=== PATIENT | female | born 1955 | race Caucasian/White ===

== ENCOUNTER → 2020-08-22 11:18 | Outpatient (BNVA) | payer MEDICAID, SELFPAY | PROVIDERS: PCP Internal Medicine; Visit Provider Nurse Practitioner Gerontology | DX: E03.9 Hypothyroidism, unspecified (principal); E66.3 Overweight | CPT/HCPCS: 99212 ==

== ENCOUNTER 2020-09-04 13:10 | Outpatient (REF) | payer MEDICAID, SELFPAY ==
[2020-09-04 15:00] LABS: Alanine Aminotransferase 18 U/L (0-31); Alkaline Phosphatase 124 U/L (39-117); Anion Gap 9 (12-20); Aspartate Amino Transferase 21 U/L (5-31); Bilirubin Total 0.4 mg/dL (0.0-1.0); Blood Urea Nitrogen 13 mg/dL (9-16); Calcium 9.6 mg/dL (8.4-10.2); Carbon Dioxide 27 mmol/L (22-29); Chloride 109 mmol/L (96-108); Estimated Glomerular Filt Rate > 60; Glucose Random 86 mg/dL (60-115); Potassium 4.8 mmol/L (3.3-5.1); Sodium 140 mmol/L (135-145); Total Protein 6.7 g/dL (6.5-8.0)
[2020-09-07 13:56] LABS: Vitamin D 25-OH, D2 <4 ng/mL; Vitamin D 25-OH, D3 46 ng/mL; Vitamin D 25-OH, Total 46 ng/mL (30-100)
== END 2020-09-04 13:11 | disposition home or self-care (01) ==
LOC: HO.LAB 13:10
PROVIDERS: PCP Family Medicine; Referring Provider Family Medicine; Visit Provider Student in an Organized Health Care Education/Training Program
DX: M81.0 Age-related osteoporosis without current pathological fracture (principal); M47.816 Spondylosis without myelopathy or radiculopathy, lumbar region
CPT/HCPCS: 36415; 80053; 82306; 99212

== ENCOUNTER 2020-09-11 08:44 | Outpatient (REF) | payer MEDICAID, SELFPAY ==
--- NOTE | ~2020-09-11 | MM_ITS ---
EXAMINATION: BONE DENSITOMETRY CLINICAL INDICATION: Osteoporosis. COMPARISON: Previous BD dated 08/02/2018 and baseline BD dated 04/11/2007. TECHNIQUE: Using a [employer] DXA System (software version: 13.1) manufactured by [employer], dual-energy x-ray absorptiometry was performed of the lumbar spine and left hip. The images are of good technical quality. Summary results are attached. FINDINGS: AP SPINE L1-L4: Current: BMD 0.981 g/cm2, Z-score -0.2, T-score -1.7, osteopenia, 3.7% increase from previous, 2.9% increase from baseline (<5% change is not significant). Prior: BMD 0.946 g/cm2. Baseline: BMD 0.953 g/cm2. LEFT FEMUR, NECK: Current: BMD 0.823 g/cm2, Z-score -0.2, T-score -1.5, osteopenia. Prior: BMD 0.827 g/cm2. Baseline: BMD 0.820 g/cm2. LEFT FEMUR, TOTAL: Current: BMD 0.805 g/cm2, Z-score -0.5, T-score -1.6, osteopenia, 1.1% increase from previous, 4.3% decrease from baseline (<5% change is not significant). Prior: BMD 0.796 g/cm2. Baseline: BMD 0.841 g/cm2. IDENTIFIED RISK FACTORS: Early menopause, family history (parent hip fracture), hyperthyroid, menopause, osteoporosis, rheumatoid arthritis, anticonvulsant, secondary osteoporosis. HISTORY OF FRACTURE: None listed. MEDICATIONS: Calcium, vitamin D, Prolia. MM/XR DEXA axial skeleton IMPRESSION: 1. DIAGNOSIS: Osteopenia based on the lowest T-score value of -1.7 in the lumbar spine applying World Health Organization criteria. 2. 10-YEAR FRACTURE RISK PREDICTION, FRAX: Major osteoporotic fracture (clinical spine, forearm, hip or shoulder) 12.4%. Hip fracture 0.7%. 3. Treatment Recommendations: NOF guidelines recommend consideration for treatment in postmenopausal women and men age 50 and older presenting with the following: -A hip or vertebral (clinical or morphometric) fracture. -T-score less than or equal to -2.5 at the femoral neck or spine after appropriate evaluation to exclude secondary causes. -Low bone mass at the hip or spine and a 10-year fracture probability by FRAX of greater than or equal to 3% for hip fracture or greater than or equal to 20% for major osteoporotic fracture based on the [place] adapted WHO algorithm. 4. Other Recommendations: All treatment decisions require clinical judgment and consideration of individual patient factors, including patient preferences, comorbidities, previous drug use, risk factors not captured in the FRAX model (e.g. frailty, falls, vitamin D deficiency, increased bone turnover, interval significant decline in bone density) and possible under or overestimation of fracture risk by FRAX. Additional medical evaluation for secondary cause of low bone mineral density may be appropriate. FUTURE SCAN RECOMMENDATION: People with diagnosed cases of osteoporosis or at high risk for fracture should have regular bone mineral density tests. For patients eligible for Medicare, routine testing is allowed once every 2 years. The testing frequency can be increased to one year for patients who have rapidly progressing disease, those who are receiving or discontinuing medical therapy to restore bone mass, or have additional risk factors.
== END 2020-09-11 08:45 | disposition home or self-care (01) ==
LOC: HO.MAMMO 08:44
PROVIDERS: Visit Provider Student in an Organized Health Care Education/Training Program
DX: M81.0 Age-related osteoporosis without current pathological fracture (principal); E05.90 Thyrotoxicosis, unspecified without thyrotoxic crisis or storm; M06.9 Rheumatoid arthritis, unspecified; Z79.899 Other long term (current) drug therapy; Z78.0 Asymptomatic menopausal state
CPT/HCPCS: 77080

== ENCOUNTER → 2020-09-20 09:47 | Outpatient (BNVA) | payer MEDICAID, SELFPAY | PROVIDERS: PCP Internal Medicine; Visit Provider Student in an Organized Health Care Education/Training Program | DX: M81.0 Age-related osteoporosis without current pathological fracture (principal) | CPT/HCPCS: 96372; J0897 ==

== ENCOUNTER 2020-10-11 10:20 | Outpatient (REF) | payer MEDICAID, SELFPAY ==
[2020-10-11 12:26] LABS: Free T4 (Free Thyroxine) 1.13 ng/dL (0.71-1.85); Thyroid Stimulating Hormone 0.68 uIU/mL (0.32-4.0)
[2020-10-12 09:36] LABS: Thyroglobulin Antibodies <1 IU/mL (< or = 1); Thyroid Peroxidase Antibodies 83 IU/mL (<9)
== END 2020-10-11 10:21 | disposition home or self-care (01) ==
LOC: HO.LAB 10:20
PROVIDERS: PCP Internal Medicine; Visit Provider Nurse Practitioner Gerontology
DX: E03.9 Hypothyroidism, unspecified (principal)
CPT/HCPCS: 36415; 84439; 84443; 86376; 86800

== ENCOUNTER 2020-11-06 08:47 | Outpatient (REF) | payer MEDICAID, SELFPAY ==
--- NOTE | ~2020-11-06 | MM_ITS ---
EXAMINATION: MM SCREENING DIGITAL BREAST TOMOSYNTHESIS, BILATERAL CLINICAL INFORMATION: Screening. Asymptomatic. The lifetime risk of breast cancer based on the Tyrer-Cuzick Model is 4%. COMPARISON: Mammography: 08/10/2018, 08/23/2015 TECHNIQUE: Digital breast tomosynthesis is performed in both the craniocaudal and mediolateral oblique views along with computer-aided detection (CAD). Synthesized 2D images are generated from the tomosynthesis. FINDINGS: There are scattered areas of fibroglandular density (ACR BI-RADS breast composition Category b). There are no significant masses, abnormal calcifications, or other abnormalities. Parenchymal pattern is similar to prior studies. There is no developing density. No significant changes. MM/MM tomosynthesis screening BI IMPRESSION: No mammographic evidence of malignancy. ASSESSMENT: BI-RADS 1: Negative RECOMMENDATION: Routine annual mammography screening. This patient's information was entered into a reminder system with a target due date for their next mammogram.
--- NOTE | ~2020-11-06 | XR_ITS ---
EXAMINATION: XR KNEE, LEFT CLINICAL INFORMATION: Pain left knee. COMPARISON: None TECHNIQUE: Four views of the left knee. FINDINGS: The tricompartment joint space is maintained normal. There is mild anterior superior patellar enthesophytes. No abnormal joint effusion. No visible acute fracture or dislocation. No loose bodies or fracture noted. XR/XR knee LT 4V IMPRESSION: Mild degenerative enthesophytes along the superior patella. No acute fracture or dislocation seen.
== END 2020-11-06 08:48 | disposition home or self-care (01) ==
LOC: HO.MAMMO 08:47
PROVIDERS: PCP Internal Medicine; Visit Provider Internal Medicine
DX: Z12.31 Encounter for screening mammogram for malignant neoplasm of breast (principal); M25.562 Pain in left knee
CPT/HCPCS: 73564; 77063; 77067

== ENCOUNTER 2021-03-25 08:48 | Outpatient (REF) | payer MEDICAID, SELFPAY ==
[2021-03-25 10:50] LABS: Vitamin D 25-OH Total 42.9 ng/mL (>30)
[2021-03-25 10:54] LABS: Alanine Aminotransferase 15 U/L (0-31); Albumin Level 3.9 g/dL (3.5-5.0); Alkaline Phosphatase 94 U/L (39-117); Anion Gap 9 (12-20); Aspartate Amino Transferase 20 U/L (5-31); Bilirubin Total 0.3 mg/dL (0.0-1.0); Blood Urea Nitrogen 18 mg/dL (9-16); Carbon Dioxide 28 mmol/L (22-29); Chloride 109 mmol/L (96-108); Estimated Glomerular Filt Rate > 60; Glucose Random 92 mg/dL (60-115); Potassium 4.2 mmol/L (3.3-5.1); Sodium 142 mmol/L (135-145); Total Protein 6.5 g/dL (6.5-8.0)
== END 2021-03-25 08:49 | disposition home or self-care (01) ==
LOC: HO.LAB 08:48
PROVIDERS: PCP Family Medicine; Visit Provider Nurse Practitioner Family
DX: M81.0 Age-related osteoporosis without current pathological fracture (principal); M47.816 Spondylosis without myelopathy or radiculopathy, lumbar region
CPT/HCPCS: 36415; 80053; 82306; 96372; 99212; J0897

== ENCOUNTER 2021-03-28 08:58 | Outpatient (REF) | payer MEDICAID, SELFPAY ==
[2021-03-28 10:24] LABS: Thyroid Stimulating Hormone 0.45 uIU/mL (0.32-4.0)
== END 2021-03-28 08:59 | disposition home or self-care (01) ==
LOC: HO.LAB 08:58
PROVIDERS: PCP Internal Medicine; Visit Provider Nurse Practitioner Gerontology
DX: E03.9 Hypothyroidism, unspecified (principal); E66.3 Overweight; Z68.28 Body mass index [BMI] 28.0-28.9, adult; Z79.899 Other long term (current) drug therapy
CPT/HCPCS: 36415; 84439; 84443; 99212

== ENCOUNTER 2021-09-20 09:42 | Outpatient (REF) | payer MEDICAID, SELFPAY ==
[2021-09-20 10:25] LABS: Alanine Aminotransferase 12 U/L (0-31); Albumin Level 3.9 g/dL (3.5-5.0); Alkaline Phosphatase 99 U/L (39-117); Anion Gap 15 (12-20); Aspartate Amino Transferase 21 U/L (5-31); Bilirubin Total 0.3 mg/dL (0.0-1.0); Blood Urea Nitrogen 15 mg/dL (9-16); Calcium 9.8 mg/dL (8.4-10.2); Carbon Dioxide 20 mmol/L (22-29); Chloride 112 mmol/L (96-108); Estimated Glomerular Filt Rate > 60; Glucose Random 97 mg/dL (60-115); Potassium 4.6 mmol/L (3.3-5.1); Sodium 142 mmol/L (135-145); Total Protein 7.2 g/dL (6.5-8.0)
[2021-09-20 14:16] LABS: Vitamin D 25-OH Total 41.7 ng/mL (>30)
== END 2021-09-20 09:43 | disposition home or self-care (01) ==
LOC: HO.LAB 09:42
PROVIDERS: PCP Internal Medicine; Visit Provider Nurse Practitioner Family
DX: M81.0 Age-related osteoporosis without current pathological fracture (principal)
CPT/HCPCS: 36415; 80053; 82306

== ENCOUNTER → 2021-09-22 10:08 | Outpatient (BNVA) | payer MEDICAID, SELFPAY | PROVIDERS: PCP Internal Medicine; Visit Provider Nurse Practitioner Family | DX: M81.0 Age-related osteoporosis without current pathological fracture (principal) | CPT/HCPCS: 96372; J0897 ==

== ENCOUNTER → 2021-11-10 11:10 | Outpatient (BNVA) | payer MEDICAID, SELFPAY | PROVIDERS: PCP Internal Medicine; Visit Provider Nurse Practitioner Family | DX: M81.0 Age-related osteoporosis without current pathological fracture (principal); R07.9 Chest pain, unspecified; M47.816 Spondylosis without myelopathy or radiculopathy, lumbar region; M79.7 Fibromyalgia; Z79.891 Long term (current) use of opiate analgesic; Z79.899 Other long term (current) drug therapy | CPT/HCPCS: 99212 ==

== ENCOUNTER 2022-03-20 09:57 | Outpatient (REF) | payer MEDICAID, SELFPAY ==
[2022-03-20 11:03] LABS: Alanine Aminotransferase 15 U/L (0-31); Albumin Level 4.2 g/dL (3.5-5.0); Alkaline Phosphatase 109 U/L (39-117); Anion Gap 13 (12-20); Aspartate Amino Transferase 20 U/L (5-31); Bilirubin Total 0.3 mg/dL (0.0-1.0); Blood Urea Nitrogen 17 mg/dL (9-16); Calcium 9.9 mg/dL (8.4-10.2); Carbon Dioxide 28 mmol/L (22-29); Chloride 106 mmol/L (96-108); Estimated Glomerular Filt Rate > 60; Glucose Random 113 mg/dL (60-115); Potassium 4.4 mmol/L (3.3-5.1); Sodium 143 mmol/L (135-145); Total Protein 6.9 g/dL (6.5-8.0)
[2022-03-20 11:15] LABS: Vitamin D 25-OH Total 50.7 ng/mL (>30)
== END 2022-03-20 09:58 | disposition home or self-care (01) ==
LOC: HO.LAB 09:57
PROVIDERS: PCP Internal Medicine; Visit Provider Nurse Practitioner Family
DX: M81.0 Age-related osteoporosis without current pathological fracture (principal)
CPT/HCPCS: 36415; 80053; 82306

== ENCOUNTER → 2022-03-26 09:59 | Outpatient (BNVA) | payer MEDICARE, MEDICAID, SELFPAY | PROVIDERS: PCP Internal Medicine; Visit Provider Nurse Practitioner Family | DX: M81.0 Age-related osteoporosis without current pathological fracture (principal) | CPT/HCPCS: 96372; J0897 ==

== ENCOUNTER 2022-06-19 08:28 | Outpatient (REF) | payer MEDICARE, MEDICAID, SELFPAY ==
--- NOTE | ~2022-06-19 | XR_ITS ---
EXAMINATION: XR LUMBOSACRAL SPINE CLINICAL INFORMATION: Lower back pain. COMPARISON: Radiographs dated 09/27/2013. TECHNIQUE: AP and lateral views of the lumbar spine and lateral view of the lumbosacral junction. FINDINGS: There is bony demineralization. There is a mild lumbar dextroscoliosis. At L5-S1, there is moderate disc space narrowing. Remaining disc spaces are relatively well-maintained. No acute fracture or spondylolisthesis is seen. There is multi-level moderate lumbar spondylosis. There is facet arthropathy at L4-L5 and L5-S1. The paravertebral soft tissues are unremarkable. XR/XR lumbar spine 2-3V IMPRESSION: 1. There is moderate degenerative disc disease at L5-S1. 2. There is multi-level moderate lumbar spondylosis. 3. There is facet arthropathy at L4-L5 and L5-S1.
== END 2022-06-19 08:29 | disposition home or self-care (01) ==
LOC: HO.XRAY 08:28
PROVIDERS: PCP Internal Medicine; Visit Provider Nurse Practitioner Family
DX: M81.0 Age-related osteoporosis without current pathological fracture (principal); M54.50 Low back pain, unspecified; M79.7 Fibromyalgia; M47.816 Spondylosis without myelopathy or radiculopathy, lumbar region; Z79.891 Long term (current) use of opiate analgesic; Z79.899 Other long term (current) drug therapy
CPT/HCPCS: 72100; 99212

== ENCOUNTER 2022-09-15 08:40 | Outpatient (REF) | payer MEDICARE, MEDICAID, SELFPAY ==
--- NOTE | ~2022-09-15 | MM_ITS ---
EXAMINATION: BONE DENSITOMETRY CLINICAL INDICATION: Age-related osteoporosis without current pathological fracture. COMPARISON: Previous BD dated 09/11/2020 and baseline BD dated 04/11/2007. TECHNIQUE: Using a [employer] DXA System (software version: 13.1) manufactured by [employer], dual-energy x-ray absorptiometry was performed of the lumbar spine and left hip. The images are of good technical quality. Summary results are attached. FINDINGS: AP SPINE L1-L4 Current: BMD 1.053 g/cm2, Z-score 0.5, T-score -1.1, osteopenia, 7.3% increase from previous, 10.5% increase from baseline (<5% change is not significant). Prior: BMD 0.981 g/cm2. Baseline: BMD 0.953 g/cm2. LEFT FEMUR, NECK: Current: BMD 0.856 g/cm2, Z-score 0.1, T-score -1.3, osteopenia. Prior: BMD 0.823 g/cm2. Baseline: BMD 0.820 g/cm2. LEFT FEMUR, TOTAL: Current: BMD 0.810 g/cm2, Z-score -0.4, T-score -1.6, osteopenia, 0.6% increase from previous, 3.7% decrease from baseline (<5% change is not significant). Prior: BMD 0.805 g/cm2. Baseline: BMD 0.841 g/cm2. IDENTIFIED RISK FACTORS: Early menopause, secondary osteoporosis, rheumatoid arthritis. HISTORY OF FRACTURE: None listed. MEDICATIONS: Vitamin D. MM/XR DEXA axial skeleton IMPRESSION: 1. DIAGNOSIS: Osteopenia based on the lowest T-score value of -1.6 in the total femur applying World Health Organization criteria. 2. 10-YEAR FRACTURE RISK PREDICTION, FRAX: Major osteoporotic fracture (clinical spine, forearm, hip or shoulder) 6.1%. Hip fracture 0.6%. 3. Treatment Recommendations: NOF guidelines recommend consideration for treatment in postmenopausal women and men age 50 and older presenting with the following: -A hip or vertebral (clinical or morphometric) fracture. -T-score less than or equal to -2.5 at the femoral neck or spine after appropriate evaluation to exclude secondary causes. -Low bone mass at the hip or spine and a 10-year fracture probability by FRAX of greater than or equal to 3% for hip fracture or greater than or equal to 20% for major osteoporotic fracture based on the [place] adapted WHO algorithm. 4. Other Recommendations: All treatment decisions require clinical judgment and consideration of individual patient factors, including patient preferences, comorbidities, previous drug use, risk factors not captured in the FRAX model (e.g. frailty, falls, vitamin D deficiency, increased bone turnover, interval significant decline in bone density) and possible under or overestimation of fracture risk by FRAX. Additional medical evaluation for secondary cause of low bone mineral density may be appropriate. FUTURE SCAN RECOMMENDATION: People with diagnosed cases of osteoporosis or at high risk for fracture should have regular bone mineral density tests. For patients eligible for Medicare, routine testing is allowed once every 2 years. The testing frequency can be increased to one year for patients who have rapidly progressing disease, those who are receiving or discontinuing medical therapy to restore bone mass, or have additional risk factors.
== END 2022-09-15 08:41 | disposition home or self-care (01) ==
LOC: HO.MAMMO 08:40
PROVIDERS: PCP Internal Medicine; Visit Provider Nurse Practitioner Family
DX: M81.0 Age-related osteoporosis without current pathological fracture (principal)
CPT/HCPCS: 77080

== ENCOUNTER 2022-09-25 10:39 | Outpatient (REF) | payer MEDICARE, MEDICAID, SELFPAY ==
--- NOTE | ~2022-09-25 | MM_ITS ---
EXAMINATION: MM SCREENING DIGITAL BREAST TOMOSYNTHESIS, BILATERAL CLINICAL INFORMATION: Screening. Asymptomatic. The lifetime risk of breast cancer based on the Tyrer-Cuzick Model is 6%. COMPARISON: Mammography: 11/06/2020, 08/10/2018, 08/23/2015 TECHNIQUE: Digital breast tomosynthesis is performed in both the craniocaudal and mediolateral oblique views along with computer-aided detection (CAD). Synthesized 2D images are generated from the tomosynthesis. FINDINGS: There are scattered areas of fibroglandular density (ACR BI-RADS breast composition Category b). Breast tissue composition borders on predominantly fatty. Background stromal and fibroglandular densities are similar to prior studies. No developing density or architectural abnormality. There are no significant masses, abnormal calcifications, or other abnormalities. The axilla and skin contours are unremarkable. MM/MM tomosynthesis screening BI IMPRESSION: No mammographic evidence of malignancy. ASSESSMENT: BI-RADS 1: Negative RECOMMENDATION: Routine annual mammography screening. This patient's information was entered into a reminder system with a target due date for their next mammogram.
== END 2022-09-25 10:40 | disposition home or self-care (01) ==
LOC: HO.MAMMO 10:39
PROVIDERS: PCP Internal Medicine; Visit Provider Internal Medicine
DX: Z12.31 Encounter for screening mammogram for malignant neoplasm of breast (principal)
CPT/HCPCS: 77063; 77067

== ENCOUNTER 2022-10-01 10:42 | Outpatient (REF) | payer MEDICARE, MEDICAID, SELFPAY ==
[2022-10-01 12:35] LABS: Amphetamine Screen Urine Not Detected (Not Detect); Barbiturates, Urine Not Detected (Not Detect); Benzodiazepines Screen Urine Not Detected (Not Detect); Cannabinoid Screen Urine Not Detected (Not Detect); Cocaine Screen Urine Not Detected (Not Detect); Fentanyl, urine Not Detected (Not Detect); Opiate Screen Urine Not Detected (Not Detect); Phencyclidine Screen Urine Not Detected (Not Detect)
[2022-10-01 13:18] LABS: Alanine Aminotransferase 17 U/L (0-31); Albumin Level 4.2 g/dL (3.5-5.0); Alkaline Phosphatase 111 U/L (39-117); Anion Gap 9 (12-20); Aspartate Amino Transferase 20 U/L (5-31); Bilirubin Total 0.5 mg/dL (0.0-1.0); Blood Urea Nitrogen 15 mg/dL (9-16); Calcium 9.7 mg/dL (8.4-10.2); Carbon Dioxide 29 mmol/L (22-29); Chloride 109 mmol/L (96-108); Estimated Glomerular Filt Rate > 60; Glucose Random 77 mg/dL (60-115); Phosphorus 3.1 mg/dL (2.7-4.5); Potassium 4.1 mmol/L (3.3-5.1); Sodium 143 mmol/L (135-145); Total Protein 6.8 g/dL (6.5-8.0)
[2022-10-01 13:35] LABS: Vitamin D 25-OH Total 58.3 ng/mL (>30)
== END 2022-10-01 10:43 | disposition home or self-care (01) ==
LOC: HO.LAB 10:42
PROVIDERS: PCP Internal Medicine; Visit Provider Nurse Practitioner Family
DX: M81.0 Age-related osteoporosis without current pathological fracture (principal); M47.816 Spondylosis without myelopathy or radiculopathy, lumbar region; M79.7 Fibromyalgia; Z79.899 Other long term (current) drug therapy
CPT/HCPCS: 80053; 80307; 80373; 82306; 84100; 99212

== ENCOUNTER → 2022-10-06 09:23 | Outpatient (BNVA) | payer MEDICARE, MEDICAID, SELFPAY | PROVIDERS: PCP Internal Medicine; Visit Provider Nurse Practitioner Family | DX: M81.0 Age-related osteoporosis without current pathological fracture (principal); Z79.620 Long term (current) use of immunosuppressive biologic | CPT/HCPCS: 96372 ==

== ENCOUNTER 2022-12-21 13:05 | Outpatient (REF) | payer MEDICARE, MEDICAID, SELFPAY ==
--- NOTE | ~2022-12-21 | XR_ITS ---
EXAMINATION: XR KNEE, LEFT CLINICAL INFORMATION: Left knee pain for 3 weeks, no injury COMPARISON: Left knee 11/06/2020 TECHNIQUE: Four views of the left knee. FINDINGS: No fracture. Small joint effusion. Alignment is anatomic. Joint spaces are maintained. No abnormal soft tissue calcification. Quadriceps enthesopathy is again noted. XR/XR knee LT 3V IMPRESSION: No acute bony abnormality.
== END 2022-12-21 13:06 | disposition home or self-care (01) ==
LOC: HO.HHCX 13:05
PROVIDERS: Visit Provider Internal Medicine
DX: M25.562 Pain in left knee (principal); G89.29 Other chronic pain
CPT/HCPCS: 73562

== ENCOUNTER 2023-02-23 08:48 | Outpatient (REF) | payer MEDICARE, MEDICAID, SELFPAY ==
[2023-02-23 14:35] LABS: MANUAL DIFF FLAG NO
[2023-02-23 14:39] LABS: Basophils Percent Auto 0.4 % (0-2); Eosinophils Absolute Auto 0.2 X10*3/uL (0.0-0.4); Eosinophils Percent Auto 2.9 % (0-4); Hematocrit 37.3 % (37.0-47.0); Hemoglobin 12.5 g/dl (12.0-16.0); Imm Gran Abs Auto 0.03 X10*3/uL (0.00-0.03); Imm Gran Pct Auto 0.4 % (0.0-0.4); Lymphocytes Absolute Auto 3.1 X10*3/uL (1.2-4.9); Lymphocytes Percent Auto 40.6 % (20-40); Mean Corpuscular HGB Conc 33.5 g/dl (31.0-35.0); Mean Corpuscular Hemoglobin 30.9 pg (27.0-33.0); Mean Corpuscular Volume 92.1 fL (80.0-98.0); Mean Platelet Volume 10.6 fL (9.4-12.3); Monocytes Absolute Auto 0.6 X10*3/uL (0.1-1.2); Monocytes Percent Auto 7.4 % (2-11); Neutrophils Absolute Auto 3.7 x10*3/uL (2.0-8.3); Neutrophils Percent Auto 48.3 % (45-73); Platelet Count 244 X10*3/uL (160-400); Red Blood Count 4.05 X10*6/uL (4.20-5.50); Red Cell Distribution Width 13.8 % (11.0-16.0); White Blood Count 7.6 X10*3/uL (4.8-10.8)
[2023-02-23 14:55] LABS: Alanine Aminotransferase 11 U/L (0-31); Albumin Level 3.9 g/dL (3.5-5.0); Alkaline Phosphatase 81 U/L (39-117); Anion Gap 12 (12-20); Aspartate Amino Transferase 18 U/L (5-31); Bilirubin Total 0.3 mg/dL (0.0-1.0); Blood Urea Nitrogen 13 mg/dL (9-16); Calcium 9.7 mg/dL (8.4-10.2); Carbon Dioxide 26 mmol/L (22-29); Chloride 108 mmol/L (96-108); Estimated Glomerular Filt Rate > 60; Glucose Fasting 88 mg/dL (60-99); Iron 109 mcg/dL (30-160); Percent Iron Saturation 35 % (15-50); Potassium 4.2 mmol/L (3.3-5.1); Sodium 142 mmol/L (135-145); Total Iron Binding Capacity 314 mcg/dL (228-428); Total Protein 6.6 g/dL (6.5-8.0); Unsaturated Iron Binding 205 ug/dL
[2023-02-23 15:30] LABS: Folate 10.4 ng/mL (> or = 4.0); Vitamin B12 455 pg/mL (200-900)
== END 2023-02-23 08:49 | disposition home or self-care (01) ==
LOC: HO.CHCLDS 08:48
PROVIDERS: Visit Provider Internal Medicine
DX: R53.82 Chronic fatigue, unspecified (principal); F45.8 Other somatoform disorders
CPT/HCPCS: 36415; 80053; 82607; 82746; 83540; 85025

== ENCOUNTER 2023-04-01 13:41 | Outpatient (REF) | payer MEDICARE, MEDICAID, SELFPAY ==
[2023-04-01 15:16] LABS: Alanine Aminotransferase 14 U/L (0-31); Alkaline Phosphatase 100 U/L (39-117); Anion Gap 11 (12-20); Aspartate Amino Transferase 19 U/L (5-31); Bilirubin Total 0.3 mg/dL (0.0-1.0); Blood Urea Nitrogen 14 mg/dL (9-16); Calcium 9.5 mg/dL (8.4-10.2); Carbon Dioxide 26 mmol/L (22-29); Chloride 108 mmol/L (96-108); Estimated Glomerular Filt Rate > 60; Glucose Random 103 mg/dL (60-115); Phosphorus 3.2 mg/dL (2.7-4.5); Potassium 4.1 mmol/L (3.3-5.1); Sodium 141 mmol/L (135-145); Total Protein 7.1 g/dL (6.5-8.0)
[2023-04-01 15:24] LABS: Vitamin D 25-OH Total 43.8 ng/mL (>30)
[2023-04-01 15:25] LABS: TSH reflex Free T4 0.09 uIU/mL (0.32-4.0)
[2023-04-01 16:20] LABS: Free T4 (Free Thyroxine) 1.18 ng/dL (0.71-1.85)
== END 2023-04-01 13:42 | disposition home or self-care (01) ==
LOC: HO.CHCLDS 13:41
PROVIDERS: Nurse Practitioner Family; Visit Provider Internal Medicine
DX: E03.9 Hypothyroidism, unspecified (principal); M81.0 Age-related osteoporosis without current pathological fracture
CPT/HCPCS: 36415; 80053; 82306; 84100; 84439; 84443

== ENCOUNTER 2023-04-08 10:05 | Outpatient (AMB) | payer MEDICARE, MEDICAID, SELFPAY ==
--- NOTE | 2023-04-08 10:10 | MHC.OFFVIS ---
Intake Vital Signs 04/08/23 10:11 Height 5 ft 1 in Weight 149 lb 11.102 oz BMI 28.3 BP 140/76 H Blood Pressure Location Rt brachial Position Sitting Respiration 16 Pulse 69 Pulse Source Pulse Oximeter Temp 97.3 F Temp Source Skin Pulse Oximetry (%) 98 Oxygen Delivery Method Room Air Intake Visit Reasons: osteoporosis/Prolia Eligibility Counselor Required: Yes Accompanied by: Self / Same As Patient Allergies No Known Allergies Allergy (Verified 10/06/22 13:38) Medication List - Last Reconciled 04/08/23 by Maribeth Smiley RN atorvastatin 40 mg PO DAILY cholecalciferol (vitamin D3) 25 mcg PO DAILY denosumab (Prolia) 60 mg subcut [id number] gabapentin 800 mg PO BEDTIME hydrochlorothiazide 12.5 mg PO DAILY levothyroxine 125 mcg PO DAILY timolol 0.5% 1 drp ophthalmic (eye) DAILY tramadol 100 mg (2 x 50 mg) PO BID PRN HPI HPI Comments History of Present Illness Details Ms. Maldonado, 67yoF presents for follow-up of Osteoporosis. Last visit in September 2022. She is currently receiving Prolia for osteoporosis. Her last injection was September 2022, and is due for injection at this time. She denies any recent falls or fractures. She is not taking calcium supplements but takes vitamin-. She denies and does not take a PPI. Prior Visit She reports continued diffuse pain due to her fibromyalgia. She states she is not sleeping well and is feeling a little bit depressed. States her PCP is aware of her depression symptoms. She states she walks for exercise and stays busy around the house. She has been taking tramadol for many years for her generalized joint pain and has a diagnosis of lumbar spondylosis. She was referred to physical therapy in May but did not end up attending. She states her back pain is stable at this time. She is taking gabapentin 800 mg at bedtime, increased by her PCP approximately 4 months ago. In review of mass pat her gabapentin is written for 800 mg 3 times a day. She states she is only taking gabapentin at bedtime because it makes her feel dizzy. [facility] Medical History (Updated 04/08/23 @ 11:11 by RYLAN Junior-) Lumbar spondylosis Overweight Fibromyalgia Hypothyroidism Hyperlipidemia Osteoporosis Osteoarthritis Surgical History No history of previous surgery Family History Father Hypertension Mother No problems noted. Social History Household Members: Spouse and Children Alcohol intake: never Patient Tobacco Use Status: Former Tobacco user Review of Systems Const All systems reviewed & are unremarkable except as noted in HPI and below Physical Exam Vital Signs: Last Vital Signs Temp 97.3 F 04/08/23 10:11 Pulse 69 04/08/23 10:11 Resp 16 04/08/23 10:11 BP 140/76 H 04/08/23 10:11 Pulse Ox 98 04/08/23 10:11 Oxygen Delivery Method Room Air 04/08/23 10:11 BMI result Body Mass Index 28.3 APPEARANCE: Patient in no acute distress EYES: no redness, pupils equal, round and reactive to light, eyelids normal THROAT: Oral mucosa moist, no ulcerations HEART: Regular rhythm, S1-S2 heard, no murmurs, rubs or gallops. LUNG: Clear to auscultation, respiratory rate regular and non-labored. EXTREMITIES: No edema, no calf tenderness, normal peripheral pulses. NEURO: Oriented and alert x3. No focal weakness. Gait normal. SKIN: No inflammatory or neoplastic lesions. Normal color and turgor Results Reviewed Results Reviewed: 04/01/2023 Calcium 9.5 TSH 0.09 L Vitamin-D 43.8 Assessment & Plan Assessment & Plan (1) Osteoporosis: Comment: Alendronate: ended in 2011. Prolia: 03/17/2019- present Code(s): M81.0 - Age-related osteoporosis without current pathological fracture Qualifiers: Osteoporosis type: age-related Presence of current pathological fracture: without current pathological fracture Qualified Code(s): M81.0 - Age-related osteoporosis without current pathological fracture (2) Lumbar spondylosis: Code(s): M47.816 - Spondylosis without myelopathy or radiculopathy, lumbar region (3) Fibromyalgia: Code(s): M79.7 - Fibromyalgia Plan #Osteoporosis: Most recent DEXA 08/2022 with T-score of-1.6 in the total femur. Will continue Prolia at this time, patient tolerating medication well. Next Prolia injection due now, patient will update her monitoring blood work 1 week before next visit for nursing visit for Prolia. Follow-up 6 months or sooner if needed. DEXA from 08/09 with T score of -2.7 in Lumbar spine. On Prolia Since 02/2019, previously could not tolerate Fosamax due to GI upset. Repeat DEXA 08/2020 with improved T-score -1.7. #Lumbar spondylosis: X-ray of lumbar spine from 07/28/2013 report notes mild multilevel degenerative lumbar disc disease. Updated lumbar spine x-ray May 2022 showed moderate degenerative disc disease at L5-S1, multilevel moderate lumbar spondylosis and facet arthropathy at L4-L5 and L5-S1. Patient with tenderness over lumbar spine and slight pain with range of motion exam today. Patient expressed that her low back pain is stable at this time. She will continue Tramadol at this time. #Fibromyalgia: Patient with multiple fibromyalgia tender points and widespread diffuse tenderness on exam today. Recommend she continue light daily activity as tolerated. Continue gabapentin prescribed by PCP and tramadol. Discussed with patient that since she is stable for both Lumbar and Fibromyalgia, will refer this care back to Primary for management and primary can do the RX for both the Tramadol and Gabapentin. 25 minutes spent reviewing chart, evaluating patient and documenting. Orders: Orders Vitamin D 25-OH Total 6 Months M81.0 - Age-related osteoporosis without current pathological fracture Comprehensive Met. Panel 6 Months M81.0 - Age-related osteoporosis without current pathological fracture Complete Blood Count Auto Diff 6 Months M81.0 - Age-related osteoporosis without current pathological fracture Medications: New tramadol 100 mg (2 x 50 mg) PO BID PRN 90 tabs 0RF pain M47.816 - Spondylosis without myelopathy or radiculopathy, lumbar region, M79.7 - Fibromyalgia Discontinued tramadol Discontinued Reason: Duplicate 100 mg (2 x 50 mg) PO BID PRN 120 tabs 0RF pain Coding Level of Care Code Est Pt Level 3 (44796) Diagnoses Age-related osteoporosis without current pathological fracture M81.0 Osteoporosis type: age-related Presence of current pathological fracture: without current pathological fracture Lumbar spondylosis M47.816 Fibromyalgia M79.7
[2023-04-08 10:11] VITALS: BP 140/76; PULSE 69; RESP 16; TEMP 36.3; O2SAT 98; BMI 28.3
== END 2023-04-08 10:54 | disposition home or self-care (01) ==
PROVIDERS: PCP Internal Medicine; Visit Provider Nurse Practitioner Family
DX: M81.0 Age-related osteoporosis without current pathological fracture (principal); M47.816 Spondylosis without myelopathy or radiculopathy, lumbar region; M79.7 Fibromyalgia
CPT/HCPCS: 99213

== ENCOUNTER → 2023-04-08 10:05 | Outpatient (BNVA) | payer MEDICARE, MEDICAID, SELFPAY | PROVIDERS: PCP Internal Medicine; Visit Provider Nurse Practitioner Family | DX: M81.0 Age-related osteoporosis without current pathological fracture (principal); M79.7 Fibromyalgia; M47.816 Spondylosis without myelopathy or radiculopathy, lumbar region | CPT/HCPCS: 96372; 99212; J0897 ==

== ENCOUNTER 2023-08-25 11:26 | Outpatient (REF) | payer MEDICARE, MEDICAID, SELFPAY ==
[2023-08-25 14:52] LABS: Alanine Aminotransferase 14 U/L (0-31); Alkaline Phosphatase 100 U/L (39-117); Anion Gap 12 (12-20); Aspartate Amino Transferase 20 U/L (5-31); Bilirubin Total 0.5 mg/dL (0.0-1.0); Blood Urea Nitrogen 15 mg/dL (9-16); Calcium 9.7 mg/dL (8.4-10.2); Carbon Dioxide 32 mmol/L (22-29); Chloride 104 mmol/L (96-108); Cholesterol 214 mg/dL (<200); Estimated Glomerular Filt Rate > 60; Glucose Random 94 mg/dL (60-115); HDL Cholesterol 37 mg/dL (>40); LDL Cholesterol Calculated 130 mg/dL (<100); Potassium 3.8 mmol/L (3.3-5.1); Sodium 144 mmol/L (135-145); Triglycerides 239 mg/dL (<150)
[2023-08-25 15:12] LABS: TSH reflex Free T4 0.13 uIU/mL (0.32-4.0)
[2023-08-25 16:05] LABS: Free T4 (Free Thyroxine) 1.25 ng/dL (0.71-1.85)
== END 2023-08-25 11:27 | disposition home or self-care (01) ==
LOC: HO.CHCLDS 11:26
PROVIDERS: Visit Provider Internal Medicine
DX: E03.9 Hypothyroidism, unspecified (principal); E78.2 Mixed hyperlipidemia
CPT/HCPCS: 36415; 80053; 80061; 84439; 84443

== ENCOUNTER 2023-09-29 10:15 | Outpatient (REF) | payer MEDICARE, MEDICAID, SELFPAY | END 2023-09-29 10:16 | disposition home or self-care (01) | LOC: HO.MAMMO 10:15 | PROVIDERS: PCP Internal Medicine; Visit Provider Internal Medicine | DX: Z12.31 Encounter for screening mammogram for malignant neoplasm of breast (principal) | CPT/HCPCS: 77063; 77067 ==

== ENCOUNTER → 2023-09-29 10:30 | Outpatient (BNV) | payer MEDICARE, MEDICAID, SELFPAY | PROVIDERS: PCP Internal Medicine; Visit Provider Radiology Diagnostic Radiology | DX: Z12.31 Encounter for screening mammogram for malignant neoplasm of breast (principal) | CPT/HCPCS: 77063; 77067 ==

== ENCOUNTER 2023-10-04 13:08 | Outpatient (REF) | payer MEDICARE, MEDICAID, SELFPAY ==
[2023-10-04 13:25] LABS: MANUAL DIFF FLAG NO
[2023-10-04 13:50] LABS: Basophils Percent Auto 0.3 % (0-2); Eosinophils Absolute Auto 0.3 X10*3/uL (0.0-0.4); Eosinophils Percent Auto 2.7 % (0-4); Hematocrit 35.7 % (37.0-47.0); Hemoglobin 12.2 g/dl (12.0-16.0); Imm Gran Abs Auto 0.04 X10*3/uL (0.00-0.03); Imm Gran Pct Auto 0.4 % (0.0-0.4); Lymphocytes Absolute Auto 3.2 X10*3/uL (1.2-4.9); Lymphocytes Percent Auto 34.7 % (20-40); Mean Corpuscular HGB Conc 34.2 g/dl (31.0-35.0); Mean Corpuscular Hemoglobin 30.3 pg (27.0-33.0); Mean Corpuscular Volume 88.8 fL (80.0-98.0); Mean Platelet Volume 10.3 fL (9.4-12.3); Monocytes Absolute Auto 0.5 X10*3/uL (0.1-1.2); Monocytes Percent Auto 5.9 % (2-11); Neutrophils Absolute Auto 5.2 x10*3/uL (2.0-8.3); Platelet Count 262 X10*3/uL (160-400); Red Blood Count 4.02 X10*6/uL (4.20-5.50); Red Cell Distribution Width 14.1 % (11.0-16.0); White Blood Count 9.2 X10*3/uL (4.8-10.8)
[2023-10-04 14:28] LABS: Alanine Aminotransferase 15 U/L (0-31); Albumin Level 4.1 g/dL (3.5-5.0); Alkaline Phosphatase 106 U/L (39-117); Anion Gap 13 (12-20); Aspartate Amino Transferase 21 U/L (5-31); Bilirubin Total 0.3 mg/dL (0.0-1.0); Blood Urea Nitrogen 19 mg/dL (9-16); Calcium 9.9 mg/dL (8.4-10.2); Carbon Dioxide 26 mmol/L (22-29); Chloride 107 mmol/L (96-108); Estimated Glomerular Filt Rate > 60; Glucose Random 97 mg/dL (60-115); Sodium 142 mmol/L (135-145); Total Protein 7.2 g/dL (6.5-8.0)
[2023-10-04 14:43] LABS: Vitamin D 25-OH Total 38.2 ng/mL (>30)
== END 2023-10-04 13:09 | disposition home or self-care (01) ==
LOC: HO.LAB 13:08
PROVIDERS: PCP Internal Medicine; Visit Provider Nurse Practitioner Family
DX: M81.0 Age-related osteoporosis without current pathological fracture (principal)
CPT/HCPCS: 36415; 80053; 82306; 85025

== ENCOUNTER 2023-10-06 10:12 | Outpatient (AMB) | payer MEDICARE, MEDICAID, SELFPAY ==
[2023-10-06 10:45] VITALS: BP 118/62; PULSE 86
--- NOTE | 2023-10-06 10:45 | AM.OFFVISNUR ---
Intake Vital Signs 10/06/23 10:45 BP 118/62 Blood Pressure Location Rt brachial Position Sitting Pulse 86 Pulse Source Pulse Oximeter Intake Visit Reasons: Osteoporosis/PROLIA Grill Prep Cook Required: No Allergies No Known Allergies Allergy (Verified 10/06/23 10:46) Nursing Note Patient here for last Prolia injection. Patient denied new allergies or any problems with last Prolia. Patient signed consent to receive injection. I administered Prolia on upper right arm. Patient tolerated injection well. Office Meds Prolia 60 mg/mL subcutaneous syringe Performing Provider: JIMMY Junior Performing Location: [facility] Rheumatology Administered by: Maribeth Smiley RN on 10/06/23 10:48 Dose Route Admin Location Dispensed Lot Number Expiration Date [facility] [employer] 60 mg subcut right arm 1 mL [id number] 01/21/26 12801-374-18 [employer] Coding Level of Care Code Procedure Only Assessment & Plan Assessment & Plan Orders: Orders AMB Denosumab Injection Patient Supplied Today M81.0 - Age-related osteoporosis without current pathological fracture Medications: New Prolia (denosumab) 60 mg subcut ONCE 1 mL 0RF NS M81.0 - Age-related osteoporosis without current pathological fracture
== END 2023-10-06 11:04 | disposition home or self-care (01) ==
LOC: HO.RHE 10:12
PROVIDERS: PCP Internal Medicine; Visit Provider Nurse Practitioner Family
DX: M81.0 Age-related osteoporosis without current pathological fracture (principal)

== ENCOUNTER → 2023-10-06 10:12 | Outpatient (BNVA) | payer MEDICARE, MEDICAID, SELFPAY | PROVIDERS: PCP Internal Medicine; Visit Provider Nurse Practitioner Family | DX: M81.0 Age-related osteoporosis without current pathological fracture (principal) | CPT/HCPCS: 96372; J0897 ==

== ENCOUNTER 2023-12-08 08:52 | Outpatient (REF) | payer MEDICARE, MEDICAID, SELFPAY ==
[2023-12-08 14:41] LABS: Alanine Aminotransferase 21 U/L (0-31); Albumin Level 3.8 g/dL (3.5-5.0); Alkaline Phosphatase 94 U/L (39-117); Anion Gap 12 (12-20); Aspartate Amino Transferase 28 U/L (5-31); Bilirubin Total 0.4 mg/dL (0.0-1.0); Blood Urea Nitrogen 15 mg/dL (9-16); Calcium 9.4 mg/dL (8.4-10.2); Carbon Dioxide 25 mmol/L (22-29); Chloride 107 mmol/L (96-108); Cholesterol 141 mg/dL (<200); Estimated Glomerular Filt Rate > 60; Glucose Random 98 mg/dL (60-115); HDL Cholesterol 35 mg/dL (>40); LDL Cholesterol Calculated 67 mg/dL (<100); Potassium 3.4 mmol/L (3.3-5.1); Sodium 141 mmol/L (135-145); Total Protein 6.3 g/dL (6.5-8.0); Triglycerides 199 mg/dL (<150)
[2023-12-08 14:45] LABS: TSH reflex Free T4 0.23 uIU/mL (0.32-4.0)
[2023-12-08 15:27] LABS: Free T4 (Free Thyroxine) 1.08 ng/dL (0.71-1.85)
== END 2023-12-08 08:53 | disposition home or self-care (01) ==
LOC: HO.CHCLDS 08:52
PROVIDERS: Visit Provider Internal Medicine
DX: E03.9 Hypothyroidism, unspecified (principal); I10 Essential (primary) hypertension
CPT/HCPCS: 36415; 80053; 80061; 84439; 84443

== ENCOUNTER 2024-05-23 08:14 | Outpatient (AMB) | payer MEDICARE, MEDICAID, SELFPAY ==
[2024-05-23 08:23] VITALS: BP 120/62; PULSE 60; BMI 29.2
--- NOTE | 2024-05-23 08:23 | MHC.OFFVIS ---
Vital Signs 05/23/24 08:23 Height 5 ft 1 in Weight 154 lb 8.705 oz BMI 29.2 BP 120/62 Blood Pressure Location Rt brachial Position Sitting Pulse 60 Pulse Source Pulse Oximeter Intake Visit Reasons: Osteoporosis/prolia Intake Note: Patient last seen by Fatuma Dietz on 04/08/23. Presents today for Osteoporosis follow up. Prolia injection was discontinue by Fatuma Dietz and patient refuse to do labs. Waffle Machine Operator Required: Yes Waffle Machine Operator Language: Senior Project Accountant Services: Waffle Machine Operator Present Information Interpreted: non-clinical & clinical Accompanied by: Self / Same As Patient Allergies No Known Allergies Allergy (Verified 05/23/24 08:27) Medication List - Last Reconciled 05/23/24 by Renetta Arzate MD atorvastatin 40 mg PO DAILY cholecalciferol (vitamin D3) 25 mcg PO DAILY denosumab (Prolia) 60 mg subcut [id number] hydrochlorothiazide 12.5 mg PO DAILY levothyroxine 125 mcg PO DAILY timolol 0.5% 1 drp ophthalmic (eye) DAILY tramadol 100 mg (2 x 50 mg) PO BID PRN HPI Comments Details: Patient is a 69-year-old female with hypothyroidism currently on levothyroxine, hyperlipidemia, hypertension, fibromyalgia and osteopenia who presents today for follow up Provider spoke with patient in her [place] language Interval History: Patient last seen 04/08/2023 with Fatuma Dietz. At that time she had diffuse tender points on examination. She had received Prolia injection at that visit. Today patient reports that she continues to have widespread joint pain. Not tolerating the gabapentin and so self-discontinued. Tramadol 50 mg 3 times a day does help her. No falls and no fractures in the past year. She says that her Prolia was stopped Rheumatologic History: Fibromyalgia and osteopenia Current Rheumatology Medication(s): Tramadol 50 mg t.i.d. Gabapentin 800 mg at night (not taking) [facility] Medical History (Updated 05/23/24 @ 09:25 by Renetta Arzate MD) Lumbar spondylosis Overweight Fibromyalgia Hypothyroidism Hyperlipidemia Osteoporosis Osteoarthritis Surgical History No history of previous surgery Family History Father Hypertension Mother No problems noted. Social History Household Members: Spouse and Children Alcohol intake: never Patient Tobacco Use Status: Former Tobacco user Review of Systems Const Details: Review of Systems Constitutional: Denies fever, chills, weight loss ENT: Denies vision changes, eye pain or eye redness, dental caries, dry mouth GI: Denies nausea, vomiting, diarrhea, abdominal pain, change in BM Pulm: Denies SOB, SCOTT, hemoptysis, wheezing Cards: Denies chest pain, palpitations Skin: Denies Raynaud's, rash, nail changes, photosensitivity, VOCATIONAL TRAINING TEACHER: Denies headaches, weakness, paresthesias, recurrent falls MSK: as per HPI All other systems reviewed and are unremarkable except noted above Physical Exam Vital Signs: Last Vital Signs Pulse 60 05/23/24 08:23 BP 120/62 05/23/24 08:23 BMI result Body Mass Index 29.2 Physical Examination CONSTITUITIONAL Patient alert and cooperative. Well appearing and in no apparent painful distress HEENT Conjunctiva and sclera clear. ?Pupils equal round and reactive to light. ?No lymphadenopathy. ? CHEST/RESPIRATORY SYSTEM Normal respiratory effort and able to speak in complete sentences. ?Clear to auscultation bilaterally. ?No crackles, rales, rhonchi, wheezes heard. CARDIAC SYSTEM Regular rate and rhythm. ?S1 and S2 heard no murmurs. ?Radial pulses intact bilaterally MSK Hands: ?Good flame cutter strength bilaterally.?No synovitis noted to the MCPs, PIPs or DIPs. ?No tenderness to palpation of these joints. Heberden's nodes noted throughout DIPs. Wrists: ?Full range of motion at the wrists without pain. ?No tenderness to palpation or synovitis noted to the wrists. Elbows: Full range of motion without pain. No tenderness, weakness, swelling, increased warmth or erythema. Shoulders: Full range of motion without pain. No tenderness, weakness, swelling, increased warmth or erythema. Hips: Full range of motion without pain. Hip bursa: Bilateral tenderness to palpation Knees: ?Full range of motion. ?No tenderness, swelling, increased warmth or erythema.?No effusion or crepitations Ankles: Full range of motion. ?No tenderness, swelling, increased warmth or erythema.? Feet: ?Negative squeeze test. ?No tenderness to palpation or swelling of the MTPs. Tender points:? Tenderness to palpation of the bilateral trapezius, supraspinatus, greater trochanters, anterior costochondral junctions, bilateral gluteal areas, bilateral suboccipital muscle insertions SKIN Skin intact without rashes. Results Reviewed Results Reviewed: DEXA 08/2020 FINDINGS: AP SPINE L1-L4: Current: BMD 0.981 g/cm2, Z-score -0.2, T-score -1.7, osteopenia, 3.7% increase from previous, 2.9% increase from baseline (<5% change is not significant). Prior: BMD 0.946 g/cm2. Baseline: BMD 0.953 g/cm2. LEFT FEMUR, NECK: Current: BMD 0.823 g/cm2, Z-score -0.2, T-score -1.5, osteopenia. Prior: BMD 0.827 g/cm2. Baseline: BMD 0.820 g/cm2. LEFT FEMUR, TOTAL: Current: BMD 0.805 g/cm2, Z-score -0.5, T-score -1.6, osteopenia, 1.1% increase from previous, 4.3% decrease from baseline (<5% change is not significant). Prior: BMD 0.796 g/cm2. Baseline: BMD 0.841 g/cm2. DEXA 08/2022 FINDINGS: AP SPINE L1-L4 Current: BMD 1.053 g/cm2, Z-score 0.5, T-score -1.1, osteopenia, 7.3% increase from previous, 10.5% increase from baseline (<5% change is not significant). Prior: BMD 0.981 g/cm2. Baseline: BMD 0.953 g/cm2. LEFT FEMUR, NECK: Current: BMD 0.856 g/cm2, Z-score 0.1, T-score -1.3, osteopenia. Prior: BMD 0.823 g/cm2. Baseline: BMD 0.820 g/cm2. LEFT FEMUR, TOTAL: Current: BMD 0.810 g/cm2, Z-score -0.4, T-score -1.6, osteopenia, 0.6% increase from previous, 3.7% decrease from baseline (<5% change is not significant). Prior: BMD 0.805 g/cm2. Baseline: BMD 0.841 g/cm2. Assessment & Plan Assessment & Plan (1) Osteoporosis: Comment: Alendronate: ended in 2011. Prolia: 03/17/2019- 2022 Code(s): M81.0 - Age-related osteoporosis without current pathological fracture Category: Medical Qualifiers: Osteoporosis type: age-related Presence of current pathological fracture: without current pathological fracture Qualified Code(s): M81.0 - Age-related osteoporosis without current pathological fracture Plan: #Osteoporosis Patient with osteoporosis, unsure of when her diagnosis was but she has a baseline density noted in 2006. She has been on alendronate and was switched to Prolia (unsure why this was switched) At this time patient's T-scores are indicative of osteopenia with her AP spine showing a 10.5% increase from baseline. No history of falls or fractures. We will continue to monitor off Prolia at this time. We will repeat bone density 08/2024 Encouraged vitamin-D supplementation and calcium intake Printout given for weight-bearing exercises Plan - continue to hold Prolia and other antiresorptives - continue vitamin-D - encouraged calcium supplementation - pamphlet given for weight-bearing exercises (2) Fibromyalgia: Code(s): M79.7 - Fibromyalgia Category: Medical Plan: #Fibromyalgia Stable Exercises for stretching given Gabapentin stopped as patient does not like the side effects Her fibromyalgia is also complicated by polyarticular osteoarthritis as evidenced by Heberden's nodes noted on her hands Patient requesting radiographs of her low back, knees and shoulders. I do think with respect to her low back pain it is likely muscular in origin and I explained that to her but we will also check radiographs Plan - Stop gabapentin - Patient currently getting tramadol from her PCP. - XR Knees, L spine and shoulders - RTC 4 months to review x-rays (3) Medication monitoring encounter: Comment: Tramadol pain contract updated 06/19/2022 Code(s): Z51.81 - Encounter for therapeutic drug level monitoring Category: Medical Plan: #moth exterminator Tramadol use Patient with tramadol for management of her osteoarthritis and fibromyalgia Plan I spent 30 minutes reviewing the record and labs, seeing the patient, discussing the treatment plan and documenting in the medical record ? Orders: Orders XR lumbar spine 4V min Today M17.9 - Osteoarthritis of knee, unspecified, M47.816 - Spondylosis without myelopathy or radiculopathy, lumbar region, M54.50 - Low back pain, unspecified, M79.7 - Fibromyalgia, M81.0 - Age-related osteoporosis without current pathological fracture, Z51.81 - Encounter for therapeutic drug level monitoring XR shoulder LT min 2V Today M17.9 - Osteoarthritis of knee, unspecified, M79.7 - Fibromyalgia, M81.0 - Age-related osteoporosis without current pathological fracture XR knee standing BI Today M17.9 - Osteoarthritis of knee, unspecified, M79.7 - Fibromyalgia, M81.0 - Age-related osteoporosis without current pathological fracture XR knee LT 3V Today M17.9 - Osteoarthritis of knee, unspecified, M79.7 - Fibromyalgia, M81.0 - Age-related osteoporosis without current pathological fracture XR shoulder RT min 2V Today M17.9 - Osteoarthritis of knee, unspecified, M79.7 - Fibromyalgia, M81.0 - Age-related osteoporosis without current pathological fracture Medications: Changed From tramadol 100 mg (2 x 50 mg) PO BID PRN 90 tabs 0RF pain M47.816 - Spondylosis without myelopathy or radiculopathy, lumbar region, M79.7 - Fibromyalgia To tramadol 50 mg PO TID PRN 180 tabs 2RF pain M47.816 - Spondylosis without myelopathy or radiculopathy, lumbar region, M79.7 - Fibromyalgia Coding Level of Care Code Est Pt Level 4 (02101) Diagnoses Age-related osteoporosis without current pathological fracture M81.0 Osteoporosis type: age-related Presence of current pathological fracture: without current pathological fracture Fibromyalgia M79.7 Medication monitoring encounter Z51.81
== END 2024-05-23 09:04 | disposition home or self-care (01) ==
PROVIDERS: PCP Internal Medicine; Visit Provider Student in an Organized Health Care Education/Training Program
DX: M81.0 Age-related osteoporosis without current pathological fracture (principal); M79.7 Fibromyalgia; Z51.81 Encounter for therapeutic drug level monitoring
CPT/HCPCS: 99214

== ENCOUNTER 2024-05-23 08:14 | Outpatient (REF) | payer MEDICARE, MEDICAID, SELFPAY ==
--- NOTE | ~2024-05-23 | XR_ITS ---
CLINICAL HISTORY: M79.7 - Fibromyalgia 4 view right shoulder Comparison: None Findings: No fractures or dislocations. No significant loss of joint space or osteophytes. No erosions. No radiopaque foreign body. IMPRESSION: 1. No acute findings This document has been electronically signed by: Triston Espinosa MD on 05/25/2024 20:54:27
--- NOTE | ~2024-05-23 | XR_ITS ---
CLINICAL HISTORY: M54.50 - Low back pain, unspecified 5 views lumbar spine Comparison: None Findings: Normal alignment. No acute fractures or dislocation. Multiple level degenerative disc and facet change. There is aortic calcification. IMPRESSION: No acute findings. This document has been electronically signed by: Triston Espinosa MD on 05/25/2024 20:17:22
--- NOTE | ~2024-05-23 | XR_ITS ---
CLINICAL HISTORY: M79.7 - Fibromyalgia 2 view left knee Comparison: None Findings: No fractures or dislocations. No significant loss of joint space, osteophytes, or erosions. No joint effusion. No radiopaque foreign body. IMPRESSION: 1. No acute findings. This document has been electronically signed by: Triston Espinosa MD on 05/25/2024 20:17:40
--- NOTE | ~2024-05-23 | XR_ITS ---
CLINICAL HISTORY: M79.7 - Fibromyalgia 3 view right knee Comparison: None Findings: Bones intact. No dislocations. No significant loss of joint space, osteophytes, or erosions. No joint effusion. No radiopaque foreign body. IMPRESSION: 1. No acute findings. This document has been electronically signed by: Triston Espinosa MD on 05/25/2024 20:56:44
--- NOTE | ~2024-05-23 | XR_ITS ---
CLINICAL HISTORY: M79.7 - Fibromyalgia 4 view left shoulder Comparison: None Findings: Normal congruency of the glenohumeral joint. No acromioclavicular joint arthrosis or undersurface spurs. No fractures or bony erosions. No greater tuberosity cysts. Normal bone mineralization and soft tissues. No radiopaque foreign body. Normal visualized left chest. Impression: 1. No fracture, subluxations or dislocations left shoulder. This document has been electronically signed by: Shahbaz Deluca MD on 05/25/2024 10:08:11
== END 2024-05-23 08:15 | disposition home or self-care (01) ==
LOC: HO.XRAY 08:14
PROVIDERS: PCP Internal Medicine; Visit Provider Student in an Organized Health Care Education/Training Program
DX: M79.7 Fibromyalgia (principal); M81.0 Age-related osteoporosis without current pathological fracture; M17.9 Osteoarthritis of knee, unspecified; M54.50 Low back pain, unspecified; M47.816 Spondylosis without myelopathy or radiculopathy, lumbar region; Z51.81 Encounter for therapeutic drug level monitoring; Z79.899 Other long term (current) drug therapy
CPT/HCPCS: 72110; 73030; 73562; 73564; 99212

== ENCOUNTER → 2024-05-23 09:19 | Outpatient (BNV) | payer MEDICARE, MEDICAID, SELFPAY | PROVIDERS: PCP Internal Medicine; Visit Provider Radiology Diagnostic Radiology | DX: M54.50 Low back pain, unspecified (principal); M79.7 Fibromyalgia | CPT/HCPCS: 72110; 73030; 73562; 73564 ==

== ENCOUNTER 2024-07-03 09:52 | Outpatient (REF) | payer MEDICARE, MEDICAID, SELFPAY ==
--- OUTSIDE RECORDS SUMMARY | 2024-07-03 10:40 | XMS_ITS | Encounter Summary ---
Author Organization [employer] Address [address] [facility] 7 [place] [address] Care Team Providers Care Street Superintendent Name Role Phone León Ly MD Primary Care Prov ider Reason for Visit * Reason Onset Date Comments Medication Question 05/13/2023 Encounter Details Date Type Department Care Team ([facility] st Contact Info) Description 05/13/2023 Telephone [facility] MEDICINE [address] [place] [address] León Ly MD [address] [place] [address] Medication Question Social History Tobacco Use Types Packs/Day Years Used Date Smoking Tobacco: Never Passive Smoke Exposure: Never Smokeless Tobacco: Never Depression Answer Date Recorded Patient Health Questionnaire-9 Score 2 01/13/2023 Housing Stability Answer Date Recorded What is your housing situation today? I have home rosen 03/16/[address] you li ve. Do you have problems with any of the following? None of the above 03/16/2023 Food Insecurity Answer Date Recorded Within the past 12 months, y ou worried that your food would run out before you got money to buy more: Never True 03/16/2023 Within the past 12 months,th e food you bought just didn't last and you didn't have enough money to get more: Never True Transportation Answer Date Recorded In the past 12 months, has l ack of transportation kept you from medical appts, meetings, work or from getting things needed for daily living? No 03/16/2023 Utilities Answer Date Recorded In the past 12 months, has t he electric, gas, oil or water company threatened to shut off services in your home? No 03/16/2023 Depression Answer Date Recorded Patient Health Questionnaire-2 Score 2 01/13/2023 Comments No Sex and Gender Information Value Date Recorded Sex Assigned at Female 03/23/2022 10:16 AM EDT Legal Sex Female 10:16 AM EDT Gender Identity Female 03/23/2022 10:16 AM EDT Sexual Orientation Straight 03/23/2022 10 :16 AM EDT documented as of this encounter Miscellaneous Notes * Telephone Encounter - Darrel Mills - 05/13/2023 2:19 PM EST Tc from patient calling in regards to the medication traMADol (Ultram) 50 MG tablet stated was taking 2 in the morning and 2 at night now was changed to 1 every 12 hours and is unclear why the dosagewas changed please clarify. documented in this encounter Plan of Treatment Upcoming Encounters Date Type Department Care Team (Late st Contact Info) Description 07/21/2024 10:15 AM EST Telemedicine [facility] CHC MED & PEDS [address] [place] [address] León Ly MD [address] [place] [address] documented as of this encounter Visit Diagnoses Not on filedocumented in this encounter Additional Health Concerns Assessment Noted Time PHQ-9 Depression Total Score: 2 01/14/20 23 9:33 AM EDT documented as of this encounter Care Teams Street Superintendent Relationship Specialty Start Date End Date León Ly MD [address] [place] [address] PCP - General Internal Medicine 10/02/19 documented as of this encounter
--- OUTSIDE RECORDS SUMMARY | 2024-07-03 10:40 | XMS_ITS | Encounter Summary ---
Author Organization [employer] Address [address] [facility] 7 [place] [address] Care Team Providers Care Fern Cutter Name Role Phone León Ly MD Primary Care Prov ider Reason for Visit * Reason Onset Date Comments Med Refill 05/16/2024 Encounter Details Date Type Department Care Team ([facility] st Contact Info) Description 05/16/2024 Telephone [facility] MEDICINE [address] [place] [address] León Ly MD [address] [place] [address] Med Refill Social History Tobacco Use Types Packs/Day Years [...] encounter Miscellaneous Notes * Telephone Encounter - Maureen Christopher LPN - 05/16/2024 11:05 AM EST Medication was sent to [facility] #[id number] on 05/15/24 #90 with 1 refill. * Telephone Encounter - Suha Harris - 05/16/2024 11:04 AM EST TC from pt requesting medication refill. Medications needing refill : levothyroxine (Synthroid, Levoxyl) 100 MCG tablet To be sent to: [facility] #[id number] documented in this encounter Plan of Treatment Upcoming Encounters Date Type Department Care Team (Late st Contact Info) Description 07/21/2024 10:15 AM EST Telemedicine [facility] MED & PEDS [address] [place] [address] León Ly MD [address] [place] [address] documented as of this encounter Visit Diagnoses Not on filedocumented in this encounter Additional Health Concerns Assessment Noted Time PHQ-9 Depression Total Score: 2 01/14/20 23 9:33 AM EDT documented as of this encounter Care Teams Fern Cutter Relationship Specialty Start Date End Date León Ly MD [address] [place] [address] PCP - General Internal Medicine 10/02/19 documented as of this encounter
--- OUTSIDE RECORDS SUMMARY | 2024-07-03 10:40 | XMS_ITS | Encounter Summary ---
Author Organization [employer] Address [address] [facility] 7 [place] [address] Care Team Providers Care Certified Pharmacy Technician Name Role Phone León Ly MD Primary Care Prov ider Reason for Visit * Reason Onset Date Comments Med Refill 05/27/2023 Encounter Details Date Type Department Care Team (Late st Contact Info) Description 05/27/2023 Telephone [facility] MEDICINE [address] [place] [address] León Ly MD [address] [place] [address] Med Refill Social History Tobacco Use Types [...] encounter Miscellaneous Notes * Telephone Encounter - Mirna Law RN - 05/27/2023 4:03 PM EST Tramadol refill too soon, not due for refill until 06/07/23. Will forward patients message to PCP about she's been taking Tramadol 2 tablets in AM and 2 tabletsin PM. * Telephone Encounter - Darrel Mills - 05/27/2023 3:45 PM EST TC from pt requesting medication refill. Medications needing refill : traMADol (Ultram) 50 MG tablet To be sent to: [email or web address] #[id number] [place], [place] - [address] [place] [address] AT [facility] Patient also stated has been taken this medication as instructed before and it was 2 in th am an 2 in the pm please clarify documented in this encounter Plan of Treatment Upcoming Encounters Date Type Department Care Team (Late st Contact Info) Description 07/21/2024 10:15 AM EST Telemedicine [facility] CHC MED & PEDS [address] [place] [address] León Ly MD [address] [place] [address] documented as of this encounter Visit Diagnoses Not on filedocumented in this encounter Additional Health Concerns Assessment Noted Time PHQ-9 Depression Total Score: 2 01/14/20 23 9:33 AM EDT documented as of this encounter Care Teams Certified Pharmacy Technician Relationship Specialty Start Date End Date León Ly MD [address] [place] [id number] PCP - General Internal Medicine 10/02/19 documented as of this encounter
--- OUTSIDE RECORDS SUMMARY | 2024-07-03 10:40 | XMS_ITS | Encounter Summary ---
Author Organization [email or web address] Address [address] [facility] [address] [place] [address] Care Team Providers Care Salesperson Men'S Hats Name Role Phone León Ly MD Primary Care Prov ider Encounter Details Date Type Department Care Team (Latest Contact Info) Description 06/21/2024 Travel Social History Tobacco Use Types Packs/Day Years Used Date Smoking Tobacco: Never Passive Smoke Exposure: Never Smokeless Tobacco: Never Depression Answer Date Recorded Patient Health Questionnaire-9 Score 12 06/21/2024 Patient Health Questionnaire-9 Score 12 06/21/2024 Last PHQ-9: Questionnaire Data Not on file 0 06/21/2024 Housing Stability Answer Date Recorded What is your housing situation today? I have home rosen 06/21/[address] you li ve. Do you have problems with any of the following? None of the above 06/21/2024 Food Insecurity Answer Date Recorded Within the past 12 months, y ou worried that your food would run out before you got money to buy more: Never True 06/21/2024 Within the past 12 months,th e food you bought just didn't last and you didn't have enough money to get more: Never True Transportation Answer Date Recorded In the past 12 months, has l ack of transportation kept you from medical appts, meetings, work or from getting things needed for daily living? No 06/21/2024 Utilities Answer Date Recorded In the past 12 months, has t he electric, gas, oil or water company threatened to shut off services in your home? No 06/21/2024 Depression Answer Date Recorded Patient Health Questionnaire-2 Score 2 06/21/2024 Internet Access Answer Date Recorded Internet Access Q1 Yes 06/21/2024 Internet Access Q2 Not on file 06/21/2024 Comments No Sex and Gender Information Value Date Recorded Sex Assigned at Female 03/23/2022 10:16 AM EDT Legal Sex Female 10:16 AM EDT Gender Identity Female 03/23/2022 10:16 AM EDT Sexual Orientation Straight 03/23/2022 10 :16 AM EDT documented as of this encounter Plan of Treatment Upcoming Encounters Date Type Department Care Team (Late st Contact Info) Description 07/21/2024 10:15 AM EST Telemedicine [facility] MED & PEDS [address] [place] [address] León Ly MD [address] [place] [address] documented as of this encounter Visit Diagnoses Not on filedocumented in this encounter Additional Health Concerns Assessment Noted Time PHQ-9 Depression Total Score: 12 025 8:53 AM EST documented as of this encounter Care Teams Salesperson Men'S Hats Relationship Specialty Start Date End Date León Ly MD [address] [place] [address] PCP - General Internal Medicine 10/02/19 documented as of this encounter
--- OUTSIDE RECORDS SUMMARY | 2024-07-03 10:40 | XMS_ITS | Encounter Summary ---
Author Organization [employer] Address [address] [place] [address] [address] [place] [place] [address] Care Team Providers Care Footwear Stitcher Name Role Phone León Ly MD Primary Care Prov ider Reason for Referral * Consultation (Routine) - Closed Specialty Diagnoses / Procedures Referred By Contac t Referred To Contact Behavioral Health Diagnoses Current mild episode of major depressive disorder without prior episode (CMS/HCC) León Ly MD [address] [place] [address] Phone: tel: fax: Referral ID Status Reason Start Date Expiration Date V isits Requested Visits Authorized [id number] Closed Specialty Services Required 06/21/2024 06/21/2025 1 1 Encounter Details Date Type Department Care Team (Late st Contact Info) Description 06/21/2024 9:00 AM EST Telemedicine [facility] MED & PEDS [address] [place] [address] León Ly MD [address] [place] [address] Current mild episode of major depressive disorder without prior episode (CMS/HCC) (Primary Dx); Dietary counseling; Exercise counseling; Primary hypertension; Acquired hypothyroidism; Anxiety Social History Tobacco Use Types Packs/Day Years [...] AM EDT documented as of this encounter Last Filed Vital Signs Vital Sign Reading Time Taken Comments Blood Pressure 143/87 06/21/2024 9:13 AM EST Pulse 64 06/21/2024 9:13 AM EST Temperature - - Respiratory Rate - - Oxygen Saturation - - Inhaled Oxygen Concentration - - Weight - - Height - - Body Mass Index - - documented in this encounter Progress Notes * León Krause MD - 06/21/2024 9:00 AM EST Subjective Patient ID: Erica Larios is a 69 y.o. female who presents for No chief complaint on file.. Hypertension This is a chronic problem. Pertinent negatives include no chest pain, headaches, palpitations, peripheral edema or shortness of breath. Review of Systems Respiratory: Negative for shortness of breath. Cardiovascular: Negative for chest pain and palpitations. Neurological: Negative for headaches. Objective Physical Exam Neurological: General: No focal deficit present. Mental Status: She is oriented to person, place, and time. Psychiatric: Mood and Affect: Mood normal. Behavior: Behavior normal. Assessment/Plan Problem List Items Addressed This Visit Primary hypertension Not at target, will increase hydrochlorothiazide to 25mg , continue low sodium diet and exercise astolerated, keep bp log, follow up in 1 month Relevant Orders Comprehensive Metabolic Panel Lipid Panel, Standard Anxiety No suicidal/homicidal ideas, will refer to for evaluation, start hydroxyzine as needed Relevant Medications hydrOXYzine HCl (Atarax) 25 MG tablet Acquired hypothyroidism Clinically euthyroid, new labs ordered for guidance of therapy Relevant Orders TSH W/Reflex to FT4 Other Visit Diagnoses Current mild episode of major depressive disorder without prior episode (CMS/HCC) - Primary Relevant Orders Referral to Behavioral Health Dietary counseling Exercise counseling documented in this encounter Miscellaneous Notes * Assessment & Plan Note - León Krause MD - 06/21/2024 9:27 AM ESTAssociated Problem(s): Anxiety No suicidal/homicidal ideas, will refer to for evaluation, start hydroxyzine as needed * Assessment & Plan Note - León Krause MD - 06/21/2024 9:27 AM ESTAssociated Problem(s): Acquired hypothyroidism Clinically euthyroid, new labs ordered for guidance of therapy * Assessment & Plan Note - León Krause MD - 06/21/2024 9:26 AM ESTAssociated Problem(s): Primary hypertension Not at target, will increase hydrochlorothiazide to 25mg , continue low sodium diet and exercise astolerated, keep bp log, follow up in 1 month documented in this encounter Plan of Treatment Upcoming Encounters Date Type Department Care Team (Late st Contact Info) Description 07/21/2024 10:15 AM EST Telemedicine [facility] MED & PEDS [address] [place] [address] León Ly MD [address] [place] [address] Scheduled Orders Name Type Priority Associated Diagnoses Orde r Schedule Comprehensive Metabolic Panel Lab Routine Primary hypertension Expected: 06/21/2024 (Approximate), Expires: 06/21/2025 Lipid Panel, Standard Lab Routine Primary hypertension Expected: 06/21/2024 (Approximate), Expires: 06/21/2025 TSH W/Reflex to FT4 Lab Routine Acquired hypothyroidism Expected: 06/21/2024 (Approximate), Expires: 06/21/2025 Scheduled Referrals Name Type Priority Associated Diagnoses Order Schedule Referral to Behavioral Health Outpatient Referral Routine Current mild episode of major depressive disorder without prior episode (CMS/HCC) Expected: 06/21/2024 (Approximate), Expires: 06/21/2025 documented as of this encounter Visit Diagnoses Diagnosis Current mild episode of major depressive disorder without prior episode (CMS/HCC)- Primary Dietary counseling Dietary surveillance and counseling Exercise counseling Primary hypertension Unspecified essential hypertension Acquired hypothyroidism Unspecified hypothyroidism Anxiety Anxiety state, unspecified documented in this encounter Additional Health Concerns Assessment Noted Time PHQ-9 Depression Total Score: 12 025 8:53 AM EST documented as of this encounter Care Teams Footwear Stitcher Relationship Specialty Start Date End Date León Ly MD [address] [place] [address] PCP - General Internal Medicine 10/02/19 documented as of this encounter
--- OUTSIDE RECORDS SUMMARY | 2024-07-03 10:40 | XMS_ITS | Encounter Summary ---
Author Organization [employer] Address [address] [place] [address] [facility] [place] [address] Care Team Providers Care Sterile Processing Manager Name Role Phone León Ly MD Primary Care Prov ider Reason for Visit * Reason Comments Med Refill Encounter Details Date Type Department Care Team (Late Contact Info) Description 01/17/2023 Refill [facility] MED & PEDS [address] [place] [address] Gopi Molina MD [address] [place] [address] Chronic pain of left knee Social History Tobacco Use Types Packs/Day Years Used Date Smoking Tobacco: Never Passive Smoke Exposure: Never Smokeless Tobacco: Never Depression Answer Date Recorded Patient Health Questionnaire-9 Score 2 01/13/2023 Depression Answer Date Recorded Patient Health Questionnaire-2 Score 2 01/13/2023 Comments Unknown Sex and Gender Information Value Date Recorded Sex Assigned at Female 03/23/2022 10:16 AM EDT Legal Sex Female 10:16 AM EDT Gender Identity Female 03/23/2022 10:16 AM EDT Sexual Orientation Straight 03/23/2022 10 :16 AM EDT documented as of this encounter Plan of Treatment Upcoming Encounters Date Type Department Care Team (Late Contact Info) Description 07/21/2024 10:15 AM EST Telemedicine [facility] MED & PEDS [address] [place] [address] León Ly MD [address] [place] [address] documented as of this encounter Visit Diagnoses Diagnosis Chronic pain of left knee documented in this encounter Additional Health Concerns Assessment Noted Time PHQ-9 Depression Total Score: 2 01/14/20 23 9:33 AM EDT documented as of this encounter Care Teams Sterile Processing Manager Relationship Specialty Start Date End Date León Ly MD [address] [place] [id number] PCP - General Internal Medicine 10/02/19 documented as of this encounter
--- OUTSIDE RECORDS SUMMARY | 2024-07-03 10:40 | XMS_ITS | Encounter Summary ---
Author Organization [employer] Address [address] [facility] 7[address] [place] [address] Care Team Providers Care Improvement Engineer Name Role Phone León Ly MD Primary Care Prov ider Encounter Details Date Type Department Care Team ([facility] st Contact Info) Description 05/28/2023 Orders Only [facility] MED & PEDS [address] [place], [place] [phone] León Ly MD [address] [place] [address] Social History Tobacco Use Types Packs/Day Years [...] Info) Description 07/21/2024 10:15 AM EST Telemedicine [facility] MED & PEDS [address] [place] [address] León Ly MD [address] [place] [address] documented as of this encounter Visit Diagnoses Not on filedocumented in this encounter Additional Health Concerns Assessment Noted Time PHQ-9 Depression Total Score: 2 01/14/20 23 9:33 AM EDT documented as of this encounter Care Teams Improvement Engineer Relationship Specialty Start Date End Date León Ly MD [address] [place] [address] PCP - General Internal Medicine 10/02/19 documented as of this encounter
--- OUTSIDE RECORDS SUMMARY | 2024-07-03 10:40 | XMS_ITS | Encounter Summary ---
Author Organization [employer] Address [address] [facility] 7 [place] [address] Care Team Providers Care Acute Care Nurse Practitioner Name Role Phone León Ly MD Primary Care Prov ider Reason for Visit * Reason Onset Date Comments Nurse Triage 12/10/2022 Encounter Details Date Type Department Care Team ([facility] st Contact Info) Description 12/10/2022 Telephone [facility] [address] [place] [address] León Ly MD [address] [place] [address] Nurse Triage Social History Tobacco Use Types Packs/Day Years Used Date Smoking Tobacco: Never Assessed Depression Answer Date Recorded Patient Health Questionnaire-9 Score 2 01/13/2023 Housing Stability Answer Date Recorded What is your housing situation today? I have homejackson rosen 03/16/[address] you [...] encounter Miscellaneous Notes * Telephone Encounter - Jailyn Pinto RN - 12/10/2022 2:06 PM EDT Triage call with [employer] Professor [place] [id number] Pt reports chronic left knee pain which has increased in the last 3 weeks. Pt reports difficulty walking and has to limp. Pt denies redness but, has some slight swelling. Pt is taking tylenol with some effect. Apt with Dr. Molina 12/17 @ 1115am. Home care is reviewed. Insurance is verified as active prior to booking. Protocol Used: Knee Pain (Adult) Care Advice Discussed: * Reassurance and Education - Knee Pain * Pain Medicines * Pain Medicines - Extra Notes and Warnings * Reasons To Call Back - Moderate pain (e.g., limping) lasts more than 3 days - Mild pain lasts more than 7 days - Signs of infection occur (e.g., spreading redness, warmth, fever) - You become worse * Use a Cold Pack for Pain * Use Heat on Area After 48 Hours * Telephone Encounter - Benjie Jensen - 12/10/2022 1:14 PM EDT Symptom: Knee Pain - Not From Injury Outcome: Schedule an urgent appointment (within 1 hour) or talk to a nurse or provider soon Reason: Severe pain now The caller accepted this outcome Please contact at [phone] Amharic documented in this encounter Plan of Treatment Upcoming Encounters Date Type Department Care Team (Late st Contact Info) Description 07/21/2024 10:15 AM EST Telemedicine [facility] MED & PEDS [address] [place] [address] León Ly MD [address] [place] [address] documented as of this encounter Visit Diagnoses Not on filedocumented in this encounter Care Teams Acute Care Nurse Practitioner Relationship Specialty Start Date End Date León Ly MD [address] [place] [address] PCP - General Internal Medicine 10/02/19 documented as of this encounter
--- OUTSIDE RECORDS SUMMARY | 2024-07-03 10:40 | XMS_ITS | Encounter Summary ---
Author Organization [employer] Address [address] [facility] 7 [place] [address] Care Team Providers Care Steam Conditioning Operator Name Role Phone León Ly MD Primary Care Prov ider Reason for Visit * Reason Comments Med Refill Encounter Details Date Type Department Care Team ([facility] st Contact Info) Description 12/04/2023 Refill [facility] MED & PEDS [address] [place], [place] [phone] León Ly MD [address] [place] [address] Fibromyalgia Social History Tobacco Use Types Packs/Day Years [...] Info) Description 07/21/2024 10:15 AM EST Telemedicine [facility] MED & PEDS [address] [place] [address] León Ly MD [address] [place] [address] documented as of this encounter Visit Diagnoses Diagnosis Fibromyalgia Unspecified myalgia and myositis documented in this encounter Additional Health Concerns Assessment Noted Time PHQ-9 Depression Total Score: 2 01/14/20 23 9:33 AM EDT documented as of this encounter Care Teams Steam Conditioning Operator Relationship Specialty Start Date End Date León Ly MD [address] [place] [address] PCP - General Internal Medicine 10/02/19 documented as of this encounter
--- OUTSIDE RECORDS SUMMARY | 2024-07-03 10:40 | XMS_ITS | Encounter Summary ---
Author Organization [facility] Address [address] [place] [address] [place] [address] Care Team Providers Care State Appellate Clerk Name Role Phone León Ly MD Primary Care Prov ider Reason for Visit * Reason Comments Med Refill Encounter Details Date Type Department Care Team (Late st Contact Info) Description 07/20/2022 Refill [facility] MED & PEDS [address] [place] [address] León Ly MD [address] [place] [address] Social History Tobacco Use Types Packs/Day Years Used Date Smoking Tobacco: Never Assessed Comments Unknown Sex and Gender Information Value Date Recorded Sex Assigned at Female 03/23/2022 10:16 AM EDT Legal Sex Female 10:16 AM EDT Gender Identity Female 03/23/2022 10:16 AM EDT Sexual Orientation Straight 03/23/2022 10 :16 AM EDT documented as of this encounter Plan of Treatment Upcoming Encounters Date Type Department Care Team (Late st Contact Info) Description 07/21/2024 10:15 AM EST Telemedicine [facility] MED & PEDS [address] [place] [address] León Ly MD [address] [place] [address] documented as of this encounter Visit Diagnoses Not on filedocumented in this encounter Care Teams State Appellate Clerk Relationship Specialty Start Date End Date León Ly MD [address] [place] [address] PCP - General Internal Medicine 10/02/19 documented as of this encounter
--- OUTSIDE RECORDS SUMMARY | 2024-07-03 10:40 | XMS_ITS | Encounter Summary ---
Author Organization [employer] Address [address] [facility] 7 [place] [address] Care Team Providers Care Inspector Ball Points Name Role Phone León Ly MD Primary Care Prov ider Reason for Visit * Reason Onset Date Comments chart prep 06/20/2024 Encounter Details Date Type Department Care Team ([facility] st Contact Info) Description 06/20/2024 Telephone [facility] MED & PEDS [address] [place], [place] [phone] León Ly MD [address] [place] [address] chart prep Social History Tobacco Use Types Packs/Day Years [...] encounter Miscellaneous Notes * Telephone Encounter - Genoveva Mills [place] - 06/20/2024 2:39 PM EST Chart Prep Labs: done Images: done Vaccines due: yes Referrals: none Screenings: none Overdue care gaps: Sbirt, SDOH, PHQ-9 documented in this encounter Plan of Treatment Upcoming Encounters Date Type Department Care Team (Late st Contact Info) Description 07/21/2024 10:15 AM EST Telemedicine [facility] MED & PEDS [address] [place] [address] León Ly MD [address] [place] [address] documented as of this encounter Visit Diagnoses Not on filedocumented in this encounter Additional Health Concerns Assessment Noted Time PHQ-9 Depression Total Score: 2 01/14/20 23 9:33 AM EDT documented as of this encounter Care Teams Inspector Ball Points Relationship Specialty Start Date End Date León Ly MD [address] [place] [address] PCP - General Internal Medicine 10/02/19 documented as of this encounter
--- OUTSIDE RECORDS SUMMARY | 2024-07-03 10:40 | XMS_ITS | Encounter Summary ---
Author Organization [employer] Address [address] [facility] 7 [place] [address] Care Team Providers Care Technical Sales Engineer Name Role Phone León Ly MD Primary Care Prov ider Reason for Visit * Reason Comments Med Refill Encounter Details Date Type Department Care Team ([facility] st Contact Info) Description 09/07/2023 Refill [facility] CH[facility] MED & PEDS [address] [place], [place] [phone] León Ly MD [address] [place] [address] Acquired hypothyroidism Social History Tobacco Use Types Packs/Day Years [...] Info) Description 07/21/2024 10:15 AM EST Telemedicine [facility] CH[facility] MED & PEDS [address] [place] [address] León Ly MD [address] [place] [address] documented as of this encounter Visit Diagnoses Diagnosis Acquired hypothyroidism Unspecified hypothyroidism documented in this encounter Additional Health Concerns Assessment Noted Time PHQ-9 Depression Total Score: 2 01/14/20 23 9:33 AM EDT documented as of this encounter Care Teams Technical Sales Engineer Relationship Specialty Start Date End Date León Ly MD [address] [place] [address] PCP - General Internal Medicine 10/02/19 documented as of this encounter
--- OUTSIDE RECORDS SUMMARY | 2024-07-03 10:40 | XMS_ITS | Encounter Summary ---
Author Organization [employer] Address [address] [facility] 7 [place] [address] Care Team Providers Care Anode Builder Name Role Phone León Ly MD Primary Care Prov ider Reason for Visit * Reason Comments Med Refill Encounter Details Date Type Department Care Team ([facility] st Contact Info) Description 09/29/2023 Refill [facility] CHC MED & PEDS [address] [place], [place] [phone] León Ly MD [address] [place] [address] Chronic pain syndrome Social History Tobacco Use Types Packs/Day Years [...] Info) Description 07/21/2024 10:15 AM EST Telemedicine [facility] CHC MED & PEDS [address] [place] [address] León Ly MD [address] [place] [address] documented as of this encounter Visit Diagnoses Diagnosis Chronic pain syndrome documented in this encounter Additional Health Concerns Assessment Noted Time PHQ-9 Depression Total Score: 2 01/14/20 23 9:33 AM EDT documented as of this encounter Care Teams Anode Builder Relationship Specialty Start Date End Date León Ly MD [address] [place] [address] PCP - General Internal Medicine 10/02/19 documented as of this encounter
--- OUTSIDE RECORDS SUMMARY | 2024-07-03 10:40 | XMS_ITS | Clinical Summary ---
Author Organization [employer] Address [address] [place] [address] Care Team Providers Care Rope Rider Name Role Phone León Ly MD Primary Care Prov ider Allergies No known active allergies Medications * This document contains information received from the source organization and may not represent a complete record from that organization. Diclofenac Sodium (Voltaren Arthritis Pain) 1 % gel Apply 2 g topically 3 times daily. 150 g 01/14/20 23 Active celecoxib (CeleBREX) 100 MG capsuleIndication s:Chronic pain of left knee TAKE 1 CAPSULE(100 MG) BY MOUTH TWICE DAILY 60 capsule 02/17/20 23 Active Blood Pressure kit 1 kit in the morning. 1 kit 04/01/20 23 Active cetirizine (ZyrTEC) 10 MG tablet Take 1 tablet (10 mg) by mouth in the morning. 30 tablet 11 08/24/19 24 2024 Active atorvastatin (Lipitor) 40 MG tabletIndications :Mixed hyperlipidemia Take 1 tablet (40 mg) by mouth Once per day. 90 tablet 3 02/16/20 24 2024 Active capsaicin (Zostrix) 0.025 % creamIndications: Chronic pain of left knee APPLY TOPICALLY TO THE AFFECTED AREA TWICE DAILY 180 g 05/08/20 24 Active levothyroxine (Synthroid, Levoxyl) 100 MCG tabletIndications :Acquired hypothyroidism TAKE 1 TABLET(100 MCG) BY MOUTH BEFORE BREAKFAST 90 tablet 1 05/15/20 24 Active traMADol (Ultram) 50 MG tabletIndications :Chronic pain syndrome Take 1 tablet (50 mg) by mouth every 12 (twelve) hours if needed for severe pain. 56 tablet 05/18/20 24 Active hydrOXYzine HCl (Atarax) 25 MG tabletIndications :Anxiety Take 1 tablet (25 mg) by mouth if needed in the morning, at noon, and at bedtime for anxiety. 90 tablet 3 06/21/19 25 2024 Active hydroCHLOROthiazi de (HYDRODiuril) 25 MG tablet Take 1 tablet (25 mg) by mouth Once per day. 90 tablet 3 06/21/19 25 2025 Active hydroCHLOROthiazi de 12.5 MG tablet Take 1 tablet (12.5 mg) by mouth Once per day. 90 tablet 3 02/16/20 24 2024 Discontinued(R eorder (will not trigger notification to Pharmacy)) Active Problems Problem Noted Date Diagnosed Date Mixed hyperlipidemia 03/15/2024 Assessment & Plan (03/15/2024 12:30 AM EDT): On atorvastatin, contineu low cholesterol diet, follow up in 3-4 months Chronic pain syndrome 05/10/2023 Assessment & Plan (12/07/2023 10:40 PM EDT): Pain well controlled with tramadol and gabapentin, continue stretching exercises Assessment & Plan (12/07/2023 11:10 AM EDT): On tramadol, no changes will be made, pain well controlled, will discontinue gabapentin, refers not having much benefit and haivng abdominal pain related to it Assessment & Plan (07/13/2023 11:46 AM EST): Patient was oriented she should be taking 1 tab 2 times a day as per discussion, new refills will be sent, if she continues taking extra doses medication will be discontinued Assessment & Plan (05/10/2023 7:53 PM EST): 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 Fibromyalgia 05/10/2023 Acquired hypothyroidism 05/10/2023 Assessment & Plan (06/21/2024 9:27 AM EST): Clinically euthyroid, new labs ordered for guidance of therapy Assessment & Plan (12/07/2023 10:39 PM EDT): On levothyroxine 112mcg, new labs will be ordered for guidance of therapy, no side effects reported Assessment & Plan (12/07/2023 11:12 AM EDT): On levothyroxine 112mcg, will order new labs for guidance of therapy Assessment & Plan (05/10/2023 7:55 PM EST): Will decrease levothyroxine to 112mcg, follow up in 2 months Primary hypertension 04/01/2023 Assessment & Plan (06/21/2024 9:26 AM EST): Not at target, will increase hydrochlorothiazide to 25mg , continue low sodium diet and exercise as tolerated, keep bp log, follow up in 1 month Assessment & Plan (03/15/2024 12:29 AM EDT): Controlled, continue low sodium diet and exercise as tolerated, keep bp log, follow up in 3 months Assessment & Plan (12/07/2023 11:10 AM EDT): Controlled, no changes will be made, reinforced low sodium diet and exercise as tolerated Assessment & Plan (05/10/2023 7:54 PM EST): Controlled, no changes will be made, reinforced low sodium diet Assessment & Plan (04/01/2023 1:41 PM EST): Patient having bp reading above 140/90 with associated headaches, will start in hydrochlorothiazide 12.5mg, keep low sodium diet, will follow up in 1 month Anxiety 04/01/2023 Assessment & Plan (06/21/2024 9:27 AM EST): No suicidal/homicidal ideas, will refer to for evaluation, start hydroxyzine as needed Assessment & Plan (07/13/2023 11:47 AM EST): Lost follow up with therapist, will task MA to reschedule Assessment & Plan (04/01/2023 1:43 PM EST): No suicidal/homicidal ideas, will refer to . Chronic fatigue 02/12/2023 Assessment & Plan (02/12/2023 1:40 PM EDT): Will check tsh levels, she has been taking levo 125mcg, will also check for anemia/vitamin b12 deficit and diabetes Chronic pain of left knee 01/13/2023 Assessment & Plan (02/12/2023 1:43 PM EDT): Pending PT, catherine on 2 weeks, will follow after completing therapy, denied swelling erythema Assessment & Plan (01/13/2023 11:56 AM EDT): Not improved with conservative treatment, will refer to pt, discussed xray findings, continue applying cold packs Screening for colon cancer 01/13/2023 Assessment & Plan (01/13/2023 11:57 AM EDT): Will order cologuard Screening for cervical cancer 01/13/2023 Assessment & Plan (01/13/2023 11:57 AM EDT): Refused pap smear Encounters * This document contains information received from the source organization and may not represent a complete record from that organization. Date Type Department Care Team Description 06/21/2024 9:00 AM EST Telemedicine [facility] [address] [place] [address] León Ly MD Current mild episode of major depressive disorder without prior episode (CMS/HCC) (Primary Dx); Dietary counseling; Exercise counseling; Primary hypertension; Acquired hypothyroidism; Anxiety 06/21/2024 Travel 06/20/2024 Telephone [facility] [address] [place] [address] León Ly MD chart prep 05/25/2024 Telephone [facility] [address] [place] [address] Andreia Bautista RN 05/23/2024 Orders Only [facility] External Provider, [facility] 05/23/2024 Telephone [facility] [address] [place] [address] Andreia Bautista RN 05/16/2024 Refill [facility] [address] [place] [address] León Ly MD Chronic pain syndrome 05/16/2024 Telephone [facility] [address] [place] [address] León Ly MD Med Refill 05/14/2024 Refill [facility] [address] [place] [address] León Ly MD Acquired hypothyroidism 05/06/2024 Refill [facility] [address] [place] [address] León Ly MD Chronic pain of left knee; Chronic pain syndrome 04/18/2024 Refill [facility] [address] [place] [address] Andreia Bautista RN Chronic pain syndrome 04/18/2024 Telephone [facility] [address] [place] [phone] León Ly MD Med Refill 04/05/2024 9:30 AM EST Clinical Support [facility] [address] [place] [address] Andreia Bautista RN Chronic pain syndrome 04/05/2024 Travel from Last 3 Months Immunizations Name Administration Dates Next Due Influenza injectable quadriv alent IIV4 with preservative 03/28/2019,04/12/2017,03/08/2015 Influenza injectable quadriv alent preservative free 03/22/2023,02/12/2022,02/12/2021,2019,08/03/2018,03/03/2016 Influenza, IIV3, injectable 03/02/2014, 1 Influenza, Split (incl. nicolasa fied surface antigen) 02/28/2013,04/13/2012 Pneumococcal Conjugate PCV 20 04/01/2023 TD (adult), 2 Lf tetanus tox oid, preservative free, adsorbed 01/10/2003 Tdap 07/05/2013 Zoster, live 04/12/2017 Social History Tobacco Use Types Packs/Day Years Used Date Smoking Tobacco: Never Passive Smoke Exposure: Never Smokeless Tobacco: Never Tobacco Cessation:Counseling Given: Not Answered Depression Answer Date Recorded Patient Health Questionnaire-9 [...] Orientation Straight 03/23/2022 10 :16 AM EDT Last Filed Vital Signs Vital Sign Reading Time Taken Comments Blood Pressure 143/87 06/21/2024 9:13 AM EST Pulse 64 06/21/2024 9:13 AM EST Temperature 36.6 ??C (97.8 ??F) 10/19/2023 2:53 PM ED T Respiratory Rate 18 10/19/2023 2:53 PM EDT Oxygen Saturation 97% 12/17/2022 11:08 AM EDT Inhaled Oxygen Concentration - - Weight 68 kg (150 lb) 10/19/2023 2:53 PM EDT Height 154.9 cm (5' 1 ) 10/19/2023 2:53 PM EDT Body Mass Index 28.34 10/19/2023 2:53 PM EDT Plan of Treatment Upcoming Encounters Date Type Department Care Team (Late st Contact Info) Description 07/21/2024 10:15 AM EST Telemedicine [facility] [address] [place], [place] [id number] OnofreLeón Zhu MD [address] [place] [address] Health Maintenance Due Date Last Done Comments CT Colonography 1955 Colonoscopy 1955 Dental Prophylaxis 1955 FIT 1955 FOBT 1955 Sigmoidoscopy 1955 Dental X-Ray: Bitewings 09/14/2013 09/13/2012 Zoster Vaccines (2 of 3) 06/07/2017 04/12/2017 DTaP/Tdap/Td Vaccines (2 - Td or Tdap) 07/05/2023 07/05/2013, 01/10/2003 Dental Oral Exam 10/14/2023 04/14/2023, 09/13/2012 COVID-19 Vaccine ( - season) 2024 05/06/2021, 10/08/2020, 09/10/2020 Influenza Vaccine (#1) 2024 3, 02/12/2022, 02/12/2021, Additional history exists Tobacco Screening 12/06/2024 12/07/2023 Depression Monitoring (PHQ-9) 12/19/2024 06/21/2024, 06/21/2024 Alcohol/Substance Use Screening 06/21/2025 06/21/2024 Depression Screening 06/21/2025 06/21/2024, 06/21/19 SDOH Screening 06/21/2025 06/21/2024 Mammogram 09/28/2025 09/29/2023, 05/0 09/2022, 11/06/2020, Additional history exists Colorectal Cancer Screening 02/09/2026 FIT DNA/Cologuard 02/09/2026 02/09/2023 Dental X-Ray: Full Mouth 04/15/2026 04/14/2023, 2 07/2012 Lipid Panel 12/07/2028 12/08/2023, 04/0 07/2023, 11/17/2021, Additional history exists RSV Patients and Patients Aged 60 years or older (1 - 1-dose 75+ series) 2032 Hepatitis C Screening Completed 11/17/2021 Pneumococcal Vaccine: 50+ Years Completed 04/01/2023 HIB Vaccines Aged Out No longer eligi ble based on patient's age to complete this topic HPV Vaccines Aged Out No longer eligi ble based on patient's age to complete this topic Hepatitis A Vaccines Aged Out No long er eligible based on patient's age to complete this topic Hepatitis B Vaccines Aged Out No long er eligible based on patient's age to complete this topic IPV Vaccines Aged Out No longer eligi ble based on patient's age to complete this topic Meningococcal Vaccine Aged Out No raji cheryl eligible based on patient's age to complete this topic RSV under 20 months Aged Out No longe r eligible based on patient's age to complete this topic Rotavirus Vaccines Aged Out No longer eligible based on patient's age to complete this topic Procedures Procedure Name Priority Date/Time Associated Diagnosis Comments XR KNEE 4+ VIEWS RIGHT Routine 05/25/2024 8:56 PM EST XR SHOULDER 2+ VIEWS RIGHT Routine 05/25/2024 8:54 PM EST XR KNEE 3 VIEWS LEFT Routine 05/25/2024 8:17 PM EST XR LUMBAR SPINE COMPLETE 4+ VIEWS Routine 05/25/2024 8:17 PM EST XR SHOULDER 2+ VIEWS LEFT Routine 05/25/2024 10:08 AM EST POCT MEAGAN-14 URINE DRUG SCREEN Routine 04/05/2024 9:41 AM EST Chronic pain syndrome LIPID PANEL, STANDARD Routine 12/08/2023 12:00 AM EDT Primary hypertension BI MAMMOGRAM SCREENING TOMOSYNTHESIS BILATERAL Routine 09/29/2023 10:35 AM EDT PANORAMIC RADIOGRAPHIC IMAGE Routine 04/14/2023 10:00 AM EST PERIODIC ORAL EVALUATION - ESTABLISHED PATIENT Routine 04/14/2023 10:00 AM EST LAB COLOGUARD?? COLON CANCER SCREEN Routine 02/09/2023 11:00 AM EDT Screening for colon cancer ZZZ HISTORICAL HEPATITIS C AB W/REFL TO HCV RNA, QN, PCR Routine 11/17/2021 9:25 AM EDT DIAGNOSTIC - DIAGNOSTIC IMAGING - INTRAORAL - COMPREHENSIVE SERIES OF RADIOGRAPHIC IMAGES Routine 09/13/2012 12:00 AM EDT from Last 3 Months or Most Recently Relevant to Health Maintenance Results * XR Knee 4+ Views Right (05/25/2024 8:56 PM EST) Anatomical Region Laterality Modality Lower Extremities, Knee Right Radiogra phic Imaging 05/25/2024 8:56 PM EST Narrative 05/25/2024 8:58 PM EST ? [facility] ?[address] ?[place] [address] ?XRay Report ? Signed ? Patient: Woodford,Erica ?MR#: [id number] ? : 1955 ?Acct:[id number] ? Age/Sex: 69 / F ?ADM Date: 12/31/24 ? Loc: HO.XRAY ? Attending Dr: Renetta Arzate MD ? Ordering Physician: Renetta Arzate MD ?? Date of Service: 05/23/24 ?? Procedure(s): XR knee RT 4V ?? Accession Number(s): [id number] ? cc: Renetta Arzate MD; León Ly MD ? CLINICAL HISTORY: M79.7 - Fibromyalgia ? 3 view right knee ? Comparison: None ? Findings: ?? Bones intact. No dislocations. ?? No significant loss of joint space, osteophytes, or erosions. ?? No joint effusion. ?? No radiopaque foreign body. ? IMPRESSION: ?? 1. No acute findings. ? This document has been electronically signed by: Triston Espinosa MD on ?? 05/25/2024 20:56:44 ? Dictated By: ?Triston Espinosa MD ? Signed By: ?<Electronically signed by Triston Espinosa MD in OV> ?05/25/242057 ? DD/ 55 ? TD/TT: 05/25/242055 ? Vascular Surgery Physician: ? Procedure Note Momodariussukhwinderconnie, Image - 05/25/[address] [address] XRay Report Signed Patient: Olivia Larios#: [id number] : 1955cct:[id number] Age/Sex: 69 / FADM Date: 05/23/24 Loc: HO.TEAY Attending Dr: Renetta Arzate MD Ordering Physician: Renetta Arzate MD Date of Service: 05/23/24 Procedure(s): XR knee RT 4V Accession Number(s): [id number] cc: Renetta Arzate MD; León Ly MD CLINICAL HISTORY: M79.7 - Fibromyalgia 3 view right knee Comparison: None Findings: Bones intact. No dislocations. No significant loss of joint space, osteophytes, or erosions. No joint effusion. No radiopaque foreign body. IMPRESSION: 1. No acute findings. This document has been electronically signed by: Triston Espinosa MD on 05/25/2024 20:56:44 Dictated By: Triston Espinosa MD Signed By: <Electronically signed by Triston Espinosa MD in OV> 05/25/242057 DD/ 55 TD/TT: 05/25/242055 Vascular Surgery Physician: [facility] External Provider IMG XR PROCEDURES Edited Result - Final * XR Shoulder 2+ Views Right (05/25/2024 8:54 PM EST) Anatomical Region Laterality Modality Upper Extremities, Shoulder Right Radi ographic Imaging 05/25/2024 8:54 PM EST Narrative 05/25/2024 8:57 PM EST ? [facility] ?[address] ?[place] [address] ?XRay Report ? Signed ? Patient: Woodford,Erica ?MR#: [id number] ? : 1955 ?Acct:[id number] ? Age/Sex: 69 / F ?ADM Date: 05/23/24 ? Loc: HO.XRAY ? Attending Dr: Renetta Arzate MD ? Ordering Physician: Renetta Arzate MD ?? Date of Service: 05/23/24 ?? Procedure(s): XR shoulder RT min 2V ?? Accession Number(s): [id number] ? cc: Renetta Arzate MD; León Ly MD ? CLINICAL HISTORY: M79.7 - Fibromyalgia ? 4 view right shoulder ? Comparison: None ? Findings: ?? No fractures or dislocations. ?? No significant loss of joint space or osteophytes. ?? No erosions. No radiopaque foreign body. ? IMPRESSION: ?? 1. No acute findings ? This document has been electronically signed by: Triston Espinosa MD on ?? 05/25/2024 20:54:27 ? Dictated By: ?Triston Espinosa MD ? Signed By: ?<Electronically signed by Triston Espinosa MD in OV> ?05/25/242055 ? DD/ 53 ? TD/TT: 05/25/242053 ? Vascular Surgery Physician: ? Procedure Note Donpedroter, Image - 05/25/[address] [address] XRay Report Signed Patient: Olivia Larios#: [id number] : 7Acct:[id number] Age/Sex: 69 / FADM Date: 05/23/24 Loc: USHA Attending Dr: Renetta Arzate MD Ordering Physician: Renetta Arzate MD Date of Service: 05/23/24 Procedure(s): XR shoulder RT min 2V Accession Number(s): [id number] cc: Renetta Arzate MD; León Ly MD CLINICAL HISTORY: M79.7 - Fibromyalgia 4 view right shoulder Comparison: None Findings: No fractures or dislocations. No significant loss of joint space or osteophytes. No erosions. No radiopaque foreign body. IMPRESSION: 1. No acute findings This document has been electronically signed by: Triston Espinosa MD on 05/25/2024 20:54:27 Dictated By: Triston Espinosa MD Signed By: <Electronically signed by Triston Espinosa MD in OV> 05/25/242055 DD/ 53 TD/TT: 05/25/242053 Vascular Surgery Physician: [facility] External Provider IMG XR PROCEDURES Edited Result - Final * XR Knee 3 Views Left (05/25/2024 8:17 PM EST) Anatomical Region Laterality Modality Lower Extremities, Knee Left Radiogra phic Imaging 05/25/2024 8:17 PM EST Narrative 05/25/2024 8:19 PM EST ? [facility] ?[address] ?[place] [address] ?XRay Report ? Signed ? Patient: Woodford,Erica ?MR#: [id number] ? : 1955 ?Acct:[id number] ? Age/Sex: 69 / F ?ADM Date: 05/23/24 ? Loc: HO.XRAY ? Attending Dr: Renetta Arzate MD ? Ordering Physician: eRnetta Arzate MD ?? Date of Service: 05/23/24 ?? Procedure(s): XR knee LT 3V ?? Accession Number(s): [id number] ? cc: Renetta Arzate MD; León Ly MD ? CLINICAL HISTORY: M79.7 - Fibromyalgia ? 2 view left knee ? Comparison: None ? Findings: ?? No fractures or dislocations. ?? No significant loss of joint space, osteophytes, or erosions. ?? No joint effusion. ?? No radiopaque foreign body. ? IMPRESSION: ?? 1. No acute findings. ? This document has been electronically signed by: Triston Espinosa MD on ?? 05/25/2024 20:17:40 ? Dictated By: ?Triston Espinosa MD ? Signed By: ?<Electronically signed by Triston Espinosa MD in OV> ?05/25/242018 ? DD/ 16 ? TD/TT: 05/25/24 2017 ? Vascular Surgery Physician: ? Procedure Note Donpedroter, Image - 05/25/[address] [address] XRay Report Signed Patient: Olivia Larios#: [id number] : 1955cct:[id number] Age/Sex: 69 / FADM Date: 05/23/24 Loc: HOSadieXRAY Attending Dr: Renetta Arzate MD Ordering Physician: Renetta Arzate MD Date of Service: 05/23/24 Procedure(s): XR knee LT 3V Accession Number(s): [id number] cc: Renetta Arzate MD; León Ly MD CLINICAL HISTORY: M79.7 - Fibromyalgia 2 view left knee Comparison: None Findings: No fractures or dislocations. No significant loss of joint space, osteophytes, or erosions. No joint effusion. No radiopaque foreign body. IMPRESSION: 1. No acute findings. This document has been electronically signed by: Triston Espinosa MD on 05/25/2024 20:17:40 Dictated By: Triston Espinosa MD Signed By: <Electronically signed by Triston Espinosa MD in OV> 05/25/242018 DD/ 16 TD/TT: 05/25/242016 Vascular Surgery Physician: [facility] External Provider IMG XR PROCEDURES Edited Result - Final * XR Lumbar Spine Complete 4+ Views (05/25/2024 8:17 PM EST) Anatomical Region Laterality Modality Spine, L-spine Radiographic Jackie ging 05/25/2024 8:17 PM EST Narrative 05/25/2024 8:18 PM EST ? [facility] ?[address] ?[place] [address] ?XRay Report ? Signed ? Patient: Woodford,Erica ?MR#: [id number] ? : 1955 ?Acct:[id number] ? Age/Sex: 69 / F ?ADM Date: 05/23/24 ? Loc: HO.XRAY ? Attending Dr: Renetta Arzate MD ? Ordering Physician: Renetta Arzate MD ?? Date of Service: 05/23/24 ?? Procedure(s): XR lumbar spine 4V min ?? Accession Number(s): [id number] ? cc: Renetta Arzate MD; León Ly MD ? CLINICAL HISTORY: M54.50 - Low back pain, unspecified ? 5 views lumbar spine ? Comparison: None ? Findings: ?? Normal alignment. ?? No acute fractures or dislocation. ?? Multiple level degenerative disc and facet change. ?? There is aortic calcification. ? IMPRESSION: ?? No acute findings. ? This document has been electronically signed by: Triston Espinosa MD on ?? 05/25/2024 20:17:22 ? Dictated By: ?Triston Espinosa MD ? Signed By: ?<Electronically signed by Triston Espinosa MD in OV> ?05/25/242017 ? DD/ 16 ? TD/TT: 05/25/242016 ? Vascular Surgery Physician: ? Procedure Note Erik Campos - 05/25/2024 [place] [address] XRay Report Signed Patient: Olivia Larios#: [id number] : 1955cct:[id number] Age/Sex: 69 / FADM Date: 05/23/24 Loc: HO.XRAY Attending Dr: Renetta Arzate MD Ordering Physician: Renetta Arzate MD Date of Service: 05/23/24 Procedure(s): XR lumbar spine 4V min Accession Number(s): [id number] cc: Renetta Arzate MD; León Ly MD CLINICAL HISTORY: M54.50 - Low back pain, unspecified 5 views lumbar spine Comparison: None Findings: Normal alignment. No acute fractures or dislocation. Multiple level degenerative disc and facet change. There is aortic calcification. IMPRESSION: No acute findings. This document has been electronically signed by: Triston Espinosa MD on 05/25/2024 20:17:22 Dictated By: Triston Espinosa MD Signed By: <Electronically signed by Triston Espinosa MD in OV> 05/25/242017 DD/ 16 TD/TT: 05/25/242016 Vascular Surgery Physician: us [facility] External Provider IMG XR PROCEDURES Edited Result - Final * XR Shoulder 2+ Views Left (05/25/2024 10:08 AM EST) Anatomical Region Laterality Modality Upper Extremities, Shoulder Left Radi ographic Imaging 05/25/2024 10:0 8 AM EST Narrative 05/25/2024 10:09 AM EST ? [facility] ?[address] ?[place] [address] ?XRay Report ? Signed ? Patient: Woodford,Erica ?MR#: [id number] ? : 1955 ?Acct:[id number] ? Age/Sex: 69 / F ?ADM Date: 05/23/24 ? Loc: HO.XRAY ? Attending Dr: Renetta Arzate MD ? Ordering Physician: Renetta Arzate MD ?? Date of Service: 05/23/24 ?? Procedure(s): XR shoulder LT min 2V ?? Accession Number(s): [id number] ? cc: Renetta Arzate MD; León Ly MD ? CLINICAL HISTORY: M79.7 - Fibromyalgia ? 4 view left shoulder ? Comparison: None ? Findings: ?? Normal congruency of the glenohumeral joint. ?? No acromioclavicular joint arthrosis or undersurface spurs. ?? No fractures or bony erosions. ?? No greater tuberosity cysts. ?? Normal bone mineralization and soft tissues. ?? No radiopaque foreign body. ?? Normal visualized left chest. ? Impression: ?? 1. No fracture, subluxations or dislocations left shoulder. ? This document has been electronically signed by: Shahbaz Deluca MD on ?? 05/25/2024 10:08:11 ? Dictated By: ?Shahbaz Deluca MD ? Signed By: ?<Electronically signed by Shahbaz Deluca MD in OV> ?05/25/241007 ? DD/ ? TD/TT: 01/02/25 1008 ? Vascular Surgery Physician: ? Procedure Note Donotaveryter, Image - 05/25/2024 [place] [address] XRay Report Signed Patient: Olivia Larios#: [id number] : 1955cct:[id number] Age/Sex: 69 / FADM Date: 05/23/24 Loc: HO.XRAY Attending Dr: Renetta Arzate MD Ordering Physician: Renetta Arzate MD Date of Service: 05/23/24 Procedure(s): XR shoulder LT min 2V Accession Number(s): [id number] cc: Renetta Arzate MD; León Ly MD CLINICAL HISTORY: M79.7 - Fibromyalgia 4 view left shoulder Comparison: None Findings: Normal congruency of the glenohumeral joint. No acromioclavicular joint arthrosis or undersurface spurs. No fractures or bony erosions. No greater tuberosity cysts. Normal bone mineralization and soft tissues. No radiopaque foreign body. Normal visualized left chest. Impression: 1. No fracture, subluxations or dislocations left shoulder. This document has been electronically signed by: Shahbaz Deluca MD on 05/25/2024 10:08:11 Dictated By: Shahbaz Deluca MD Signed By: <Electronically signed by Shahbaz Deluca MD in OV> 05/25/24 1008 DD/ 1008 TD/TT: 05/25/24 1008 Vascular Surgery Physician: [facility] External Provider IMG XR PROCEDURES Edited Result - Final * POCT MEAGAN-14 Urine Drug Screen (04/05/2024 9:41 AM EST) Urine Urine specimen obtained by clean catch procedure / Unknown 04/05/2024 9:41 AM EST Narrative Andreia Bautista RN - 04/05/2024 9:41 AM EST negative for THC, MOP, OXY, AUDRA, MET, AMP, BZO, BAR, MTD, BUPG, TCA, MDMA, PCP, PPX. Lot# [id number] Exp: 04-08-25 León Krause MD POINT OF CARE TEST ENTER/EDIT ORDERABLES Final Result * (ABNORMAL) Lipid Panel, Standard (12/08/2023 12:00 AM EDT) Triglycerides 199(H) <150 mg/dL [facility] Comment:Desirable Triglyceri de: less than 150 mg/dLBorderline High Triglyceride 150-199 mg/dLHigh Triglyceride: 200-499 mg/dLVery High Triglyceride: greater than or equal to 5OO mg/dL Cholesterol 141 <200 mg/dL [facility] Comment:Desirable Cholestero l: less than 200 mg/dLBorderline High Cholesterol: 200-239 mg/dLHigh Cholesterol: greater than 239 mg/dL LDL Cholesterol Calculated 67 <100 mg/dL [facility] Comment:Desirable LDL: less than 100 mg/dLNear Optimal/Above Optimal LDL: 110- 129 mg/dLBorderline High LDL: 130-159 mg/dLHigh LDL: 160-189 mg/dLVery High LDL: greater than or equal to 190 mg/dL HDL Cholesterol 35(L) >40 mg/dL [facility] Comment:Desirable HDL: great er than 40 mg/dL Note: This HDL assay may give artificially low results in patients with liver disease. Blood Venous blood specimen / Unknown 12/08/2023 12/08/2023 León Krause MD LAB BLOOD ORDERABL ES Final Result [facility] [address] [place] [phone] * BI Mammogram Screening Tomosynthesis Bilateral (09/29/2023 10:35 AM EDT) Anatomical Region Laterality Modality Breast Bilateral Mammography 09/29/2023 10:3 5 AM EDT Narrative 10/29/2023 8:11 AM EDT ? [facility] ? [address] ?[place] [address] ? Mammography Report ? Signed ? Patient: Woodford,Erica ?MR#: [id number] ? : 1955 ?Acct:[id number] ? Age/Sex: 68 / F ?ADM Date: 09/29/23 ? Loc: HO.MAMMO ? Attending Dr: León Krause MD ? Ordering Physician: León Ly MD ?Res ?? ults: 1Negative ? Date of Service: 09/29/23 ?Follow Up: 1 Year From Orig ?? inal Mammogram ? Procedure(s): MM tomosynthesis screening BI ?? Accession Number(s): [id number] ? cc: León Ly MD ? EXAMINATION: ?? MM SCREENING DIGITAL BREAST TOMOSYNTHESIS, BILATERAL ? CLINICAL INFORMATION: ? Screening. Asymptomatic. ? COMPARISON: ?? Mammography: This study is compared with prior exams dating back to ?? 2019. ? TECHNIQUE: ?? Digital breast tomosynthesis is performed in both the craniocaudal and ?? mediolateral oblique views along with computer-aided detection (CAD). ?? Synthesized 2D images are generated from the tomosynthesis. ? FINDINGS: ?? The breasts are almost entirely fatty (ACR BI-RADS breast composition ?? Category a). ? There are no significant masses, abnormal calcifications, or other ?? abnormalities. ? MM/MM tomosynthesis screening BI ?? IMPRESSION: ?? No mammographic evidence of malignancy. ? ASSESSMENT: ? BI-RADS BI-RADS 1 - Negative ? RECOMMENDATION: ?? Routine annual mammography screening. ? 1 year F/U ? This examination should not preclude the clinical evaluation of a ?? suspicious palpable abnormality. ? This patient's information was entered into a reminder system with a ?? target due date for their next mammogram. ? Dictated By: ?Jo-Ann Khalil MD ? Signed By: ?<Electronically signed by Jo-Ann Khalil MD in OV> ? 10/29/23806 ? DD/ 1035 ? TD/TT: ? Vascular Surgery Physician: ? Procedure Note Donpedroter, Image - 10/29/2023 [facility] [address] [place] [address] Mammography Report Signed Patient: Olivia Larios#: [id number] : 7Acct:[id number] Age/Sex: 68 / FADM Date: 09/29/23 Loc: HO.MAMMO Attending Dr: León Krause MD Ordering Physician: León Ly ults: 1Negative Date of Service: 09/29/23Follow Up: 1 Year From Orig inal Mammogram Procedure(s): MM tomosynthesis screening BI Accession Number(s): [id number] cc: León Ly MD EXAMINATION: MM SCREENING DIGITAL BREAST TOMOSYNTHESIS, BILATERAL CLINICAL INFORMATION: Screening. Asymptomatic. COMPARISON: Mammography: This study is compared with prior exams dating back to 2019. TECHNIQUE: Digital breast tomosynthesis is performed in both the craniocaudal and mediolateral oblique views along with computer-aided detection (CAD). Synthesized 2D images are generated from the tomosynthesis. FINDINGS: The breasts are almost entirely fatty (ACR BI-RADS breast composition Category a). There are no significant masses, abnormal calcifications, or other abnormalities. MM/MM tomosynthesis screening BI IMPRESSION: No mammographic evidence of malignancy. ASSESSMENT: BI-RADS BI-RADS 1 - Negative RECOMMENDATION: Routine annual mammography screening. 1 year F/U This examination should not preclude the clinical evaluation of a suspicious palpable abnormality. This patient's information was entered into a reminder system with a target due date for their next mammogram. Dictated By: Jo-Ann Khalil MD Signed By: <Electronically signed by Jo-Ann Khalil MD in OV> 10/29/23 0807 DD/ 1035 TD/TT: Vascular Surgery Physician: León Krause MD [facility] [place] BI PROCEDURES Edited Result - Final * Cologuard?? colon cancer screening (02/09/2023 11:00 AM EDT) Cologuard Result Negative Negative 02/15/20 8:32 AM EDT [facility] (CLIA #:[id number]) Comment: NEGATIVE TEST RESULT. A negative Cologuard result indicates a low likelihood that a colorectal cancer (CRC) or advanced adenoma (adenomatous polyps with more advanced pre-malignant features) ??is present. The chance that a person with a negative Cologuard test has a colorectal cancer is less than 1 in 1500 (negative predictive value >99.9%) or has an ??advanced adenoma is less than ??5.3% (negative predictive value 94.7%). These data are based on a prospective cross-sectional study of 10,000 individuals at average risk for colorectal cancer who were screened with both Cologuard and colonoscopy. (Joey Bedolla et al, N Engl J Med 2014;370(14):1286- 1297) The normal value (reference range) for this assay is negative. COLOGUARD RE-SCREENING RECOMMENDATION: Periodic colorectal cancer screening is an important part of preventive healthcare for asymptomatic individuals at average risk for colorectal cancer. ??Following a negative Cologuard result, the [place] [employer] Society and U.S. Multi-Society Task Force screening guidelines recommend a Cologuard re-screening interval of 3 years. References: [place] [employer] Guideline for Colorectal Cancer Screening: https://www.cancer.org/cancer/mvbis-qasssn-nkbsux/hryjdxwdk-yruygzhhd-ucbmmlx/ac s-rec ommendations.html.; Jose Angel GRIDER, Mansoor GARCÍA, eFlicita MOORE, Colorectal Cancer Screening: Recommendations for Physicians and Patients from the U.S. Multi-Society Task Force on Colorectal Cancer Screening , Am J Gastroenterology 2017; 112:0894-4318. TEST DESCRIPTION: Composite algorithmic analysis of stool DNA-biomarkers with hemoglobin immunoassay. ?? Quantitative values of individual biomarkers are not reportable and are not associated with individual biomarker result reference ranges. Cologuard is intended for colorectal cancer screening of adults of either sex, 45 years or older, who are at average-risk for colorectal cancer (CRC). Cologuard has been approved for use by the U.S. FDA. The performance of Cologuard was established in a cross sectional study of average-risk adults aged 50-84. Cologuard performance in patients ages 45 to 49 years was estimated by sub-group analysis of near-age groups. Colonoscopies performed for a positive result may find as the most clinically significant lesion: colorectal cancer [4.0%], advanced adenoma (including sessile serrated polyps greater than or equal to 1cm diameter) [20%] or non- advanced adenoma [31%]; or no colorectal neoplasia [45%]. These estimates are derived from a prospective cross-sectional screening study of 10,000 individuals at average risk for colorectal cancer who were screened with both Cologuard and colonoscopy. (Joey Almaguer. et al, N Engl J Med 2014;370(14):0343-2682.) Cologuard may produce a false negative or false positive result (no colorectal cancer or precancerous polyp present at colonoscopy follow up). A negative Cologuard test result does not guarantee the absence of CRC or advanced adenoma (pre-cancer). The current Cologuard screening interval is every 3 years. ([place] [employer] and U.S. Multi-Society Task Force). Cologuard performance data in a 10,000 patient pivotal study using colonoscopy as the reference method can be accessed at the following location: www.[employer]/results. Additional description of the Cologuard test process, warnings and precautions can be found at www.cologuard.com. Stool specimen (specimen) 02/09/2023 11:00 AM EDT 02/10/2023 9:36 PM EDT León Krause MD LAB MOLECULAR DIAG NOSTICS ORDERABLES Final Result [facility] (CLIA #:[id number]) [address] [place] [address], * HEPATITIS C AB W/REFL TO HCV RNA, QN, PCR (11/17/2021 9:25 AM EDT) HEPATITIS C ANTIBODY NON-REACT ENEIDA NON-REACT ENEIDA [facility] INDEX 0.04 <1.00 [facility] Comment: ?? HCV antibody was non-reactive. There is no laboratory ?? evidence of HCV infection. ?? In most cases, no further action is required. However, if recent HCV exposure is suspected, a test for HCV RNA (test code 20209) is suggested. ?? For additional information please refer to http://education.ThinkLink.UrbanIndo/faq/CGA64y7 (This link is being provided for informational/ educational purposes only.) ?? 11/17/2021 9:25 AM EDT León Krause MD HISTORICAL/NON ORD ERABLE LABS Final Result Performing Organization Address [facility] Co de Phone Number [facility] [address] from Last 3 Months or Most Recently Relevant to Health Maintenance Insurance [facility]ICARE [facility] STANDARD DENTAL-[facility] MEDICAID STAND ADULT Care Teams Rope Rider Relationship Specialty Start Date End Date León Ly MD [address] [place] [id number] PCP - General Internal Medicine 10/02/19
--- OUTSIDE RECORDS SUMMARY | 2024-07-03 10:41 | XMS_ITS | Encounter Summary ---
Author Organization [employer] Address [address] [facility] 7 [place] [address] Care Team Providers Care Boilermaker Fitter Name Role Phone León Ly MD Primary Care Prov ider Reason for Visit * Reason Comments Med Refill Encounter Details Date Type Department Care Team ([facility] st Contact Info) Description 03/09/2024 Refill [facility]S [address] [place], [place] [phone] León Ly MD [address] [place] [address] Social History Tobacco Use Types Packs/Day Years [...] Info) Description 07/21/2024 10:15 AM EST Telemedicine [facility] [address] [place] [address] León Ly MD [address] [place] [address] documented as of this encounter Visit Diagnoses Not on filedocumented in this encounter Additional Health Concerns Assessment Noted Time PHQ-9 Depression Total Score: 2 01/14/20 23 9:33 AM EDT documented as of this encounter Care Teams Boilermaker Fitter Relationship Specialty Start Date End Date León Ly MD [address] [place] [address] PCP - General Internal Medicine 10/02/19 documented as of this encounter
--- OUTSIDE RECORDS SUMMARY | 2024-07-03 10:41 | XMS_ITS | Encounter Summary ---
Author Organization [employer] Address 75 [facility] 7 [place] [address] Care Team Providers Care Safety Engineer Name Role Phone León Ly MD Primary Care Prov ider Reason for Visit * Reason Onset Date Comments Med Refill 02/17/2024 Encounter Details Date Type Department Care Team ([facility] st Contact Info) Description 02/17/2024 Telephone [facility] [address] [place] [address] León Ly MD [address] [place] [address] Med Refill Social History Tobacco Use Types [...] * Telephone Encounter - Darrel Mills - 02/17/2024 11:37 AM EDT TC from pt requesting medication refill. Medications needing refill : traMADol (Ultram) 50 MG tablet To be sent to: [facility] #[id number] AT [facility] documented in this encounter Plan of Treatment Upcoming Encounters Date Type Department Care Team (Late st Contact Info) Description 07/21/2024 10:15 AM EST Telemedicine [facility]S [address] [place] [address] León Ly MD [address] [place] [address] documented as of this encounter Visit Diagnoses Not on filedocumented in this encounter Additional Health Concerns Assessment Noted Time PHQ-9 Depression Total Score: 2 01/14/20 23 9:33 AM EDT documented as of this encounter Care Teams Safety Engineer Relationship Specialty Start Date End Date León Ly MD [address] [place] [address] PCP - General Internal Medicine 10/02/19 documented as of this encounter
--- OUTSIDE RECORDS SUMMARY | 2024-07-03 10:41 | XMS_ITS | Encounter Summary ---
Author Organization [employer] Address 75 [facility] 7 [place] [address] Care Team Providers Care Press Technician Name Role Phone León Ly MD Primary Care Prov ider Reason for Visit * Reason Onset Date Comments Med Refill 04/18/2024 Encounter Details Date Type Department Care Team ([facility] st Contact Info) Description 04/18/2024 Telephone [facility] [address] [place] [address] León Ly MD [address] [place] [address] Med Refill Social History Tobacco Use Types [...] encounter Miscellaneous Notes * Telephone Encounter - Nahum Singer - 04/18/2024 1:18 PM EST TC from pt requesting medication refill. Medications needing refill : traMADol (Ultram) 50 MG tablet To be sent to: [facility] #[id number] AT [facility] documented in this encounter Plan of Treatment Upcoming Encounters Date Type Department Care Team (Late st Contact Info) Description 07/21/2024 10:15 AM EST Telemedicine [facility]S [address] [place] [address] León Ly MD [address] [place] [address] documented as of this encounter Visit Diagnoses Not on filedocumented in this encounter Additional Health Concerns Assessment Noted Time PHQ-9 Depression Total Score: 2 01/14/20 23 9:33 AM EDT documented as of this encounter Care Teams Press Technician Relationship Specialty Start Date End Date León Ly MD [address] [place] [address] PCP - General Internal Medicine 10/02/19 documented as of this encounter
[2024-07-03 14:42] LABS: Alanine Aminotransferase 23 U/L (0-31); Alkaline Phosphatase 186 U/L (39-117); Anion Gap 9 (12-20); Aspartate Amino Transferase 29 U/L (5-31); Bilirubin Total 0.5 mg/dL (0.0-1.0); Blood Urea Nitrogen 15 mg/dL (9-16); Carbon Dioxide 30 mmol/L (22-29); Chloride 107 mmol/L (96-108); Cholesterol 150 mg/dL (<200); Estimated Glomerular Filt Rate > 60; Glucose Random 99 mg/dL (60-115); HDL Cholesterol 40 mg/dL (>40); Potassium 3.9 mmol/L (3.3-5.1); Sodium 142 mmol/L (135-145); Total Protein 7.2 g/dL (6.5-8.0)
[2024-07-03 14:56] LABS: LDL Cholesterol Calculated 80 mg/dL (<100); Triglycerides 154 mg/dL (<150)
[2024-07-03 15:00] LABS: TSH reflex Free T4 0.67 uIU/mL (0.32-4.0)
== END 2024-07-03 09:53 | disposition home or self-care (01) ==
LOC: HO.CHCLDS 09:52
PROVIDERS: Visit Provider Internal Medicine
DX: I10 Essential (primary) hypertension (principal); E03.9 Hypothyroidism, unspecified
CPT/HCPCS: 36415; 80053; 80061; 84443

== ENCOUNTER 2024-08-21 09:27 | Outpatient (REF) | payer MEDICARE, MEDICAID, SELFPAY ==
[2024-08-21 15:01] LABS: MANUAL DIFF FLAG NO
[2024-08-21 15:10] LABS: Basophils Percent Auto 0.4 % (0-2); Eosinophils Absolute Auto 0.2 X10*3/uL (0.0-0.4); Eosinophils Percent Auto 2.1 % (0-4); Hematocrit 38.2 % (37.0-47.0); Hemoglobin 12.5 g/dl (12.0-16.0); Imm Gran Abs Auto 0.02 X10*3/uL (0.00-0.03); Imm Gran Pct Auto 0.3 % (0.0-0.4); Lymphocytes Absolute Auto 2.6 X10*3/uL (1.2-4.9); Lymphocytes Percent Auto 34.8 % (20-40); Mean Corpuscular HGB Conc 32.7 g/dl (31.0-35.0); Mean Corpuscular Hemoglobin 29.7 pg (27.0-33.0); Mean Corpuscular Volume 90.7 fL (80.0-98.0); Mean Platelet Volume 10.1 fL (9.4-12.3); Monocytes Absolute Auto 0.6 X10*3/uL (0.1-1.2); Monocytes Percent Auto 8.3 % (2-11); Neutrophils Absolute Auto 4.1 x10*3/uL (2.0-8.3); Neutrophils Percent Auto 54.1 % (45-73); Platelet Count 296 X10*3/uL (160-400); Red Blood Count 4.21 X10*6/uL (4.20-5.50); Red Cell Distribution Width 14.5 % (11.0-16.0); White Blood Count 7.6 X10*3/uL (4.8-10.8)
[2024-08-22 08:20] LABS: Syphilis Screen Nonreactive (Nonreactive)
== END 2024-08-21 09:28 | disposition home or self-care (01) ==
LOC: HO.CHCLDS 09:27
PROVIDERS: Visit Provider Internal Medicine
DX: L29.9 Pruritus, unspecified (principal); R21 Rash and other nonspecific skin eruption
CPT/HCPCS: 36415; 85025; 86780

== ENCOUNTER 2024-09-06 09:18 | Outpatient (AMB) | payer MEDICARE, MEDICAID, SELFPAY ==
--- NOTE | 2024-09-06 09:24 | A.OFFVIS_ITS ---
Vital Signs 09/06/24 09:33 Height 5 ft 1 in Weight 153 lb 3.54 oz BMI 28.9 BP 120/70 Blood Pressure Location Rt brachial Position Sitting Pulse 65 Pulse Source Pulse Oximeter Pulse Oximetry (%) 96 Oxygen Delivery Method Room Air Intake Visit Reasons: Osteoporosis/prolia Intake Note: Patient presents today for Osteoporosis follow up. Banking Services Clerk Required: Yes Banking Services Clerk Language: Scroll Assembler Services: Banking Services Clerk Present Banking Services Clerk Name: Joanne Pinto Information Interpreted: non-clinical & clinical Allergies No Known Allergies Allergy (Verified 09/06/24 09:32) Medication List - Last Reconciled 09/06/24 by Renetta Arzate MD atorvastatin 40 mg PO DAILY cholecalciferol (vitamin D3) 25 mcg PO DAILY hydrochlorothiazide 12.5 mg PO DAILY levothyroxine 125 mcg PO DAILY timolol 0.5% 1 drp ophthalmic (eye) DAILY tramadol 50 mg PO TID PRN HPI Comments Details: Patient is a 69-year-old female with hypothyroidism currently on levothyroxine, hyperlipidemia, hypertension, fibromyalgia and osteopenia who presents today for follow up Interval History: Patient last seen 05/23/2024 with me. At that time she was off of Prolia by her previous provider. She continued to have widespread joint pain responding well to tramadol 50 mg 3 times a day. Today she is here for follow up complaining of right shoulder pain. No falls or fractures since last visit Rheumatologic History: Fibromyalgia and osteopenia Polyarticular OA Current Rheumatology Medication(s): Tramadol 50 mg t[facility]i.d. [facility] Medical History (Updated 09/06/24 @ 15:23 by Renetta Arzate MD) Lumbar spondylosis Overweight Fibromyalgia Hypothyroidism Hyperlipidemia Osteoporosis Osteoarthritis Surgical History No history of previous surgery Family History Father Hypertension Mother No problems noted. Social History Household Members: Spouse and Children Alcohol intake: never Patient Tobacco Use Status: Former Tobacco user Review of Systems Const Details: Review of Systems Constitutional: Denies fever, chills, weight loss ENT: Denies vision changes, eye pain or eye redness, dental caries, dry mouth GI: Denies nausea, vomiting, diarrhea, abdominal pain, change in BM Pulm: Denies SOB, SCOTT, hemoptysis, wheezing Cards: Denies chest pain, palpitations Skin: Denies Raynaud's, rash, nail changes, photosensitivity, BIOTECHNOLOGIST: Denies headaches, weakness, paresthesias, recurrent falls MSK: as per HPI All other systems reviewed and are unremarkable except noted above Physical Exam Vital Signs: Last Vital Signs Pulse 65 09/06/24 09:33 BP 120/70 09/06/24 09:33 Pulse Ox 96 09/06/24 09:33 Oxygen Delivery Method Room Air 09/06/24 09:33 BMI result Body Mass Index 28.9 Vital signs reviewed Physical Examination CONSTITUITIONAL Patient alert and cooperative. Well appearing and in no apparent painful distress HEENT Conjunctiva and sclera clear. ?Pupils equal round and reactive to light. ?No lymphadenopathy. ? CHEST/RESPIRATORY SYSTEM Normal respiratory effort and able to speak in complete sentences. ?Clear to auscultation bilaterally. ?No crackles, rales, rhonchi, wheezes heard. CARDIAC SYSTEM Regular rate and rhythm. ?S1 and S2 heard no murmurs. ?Radial pulses intact bilaterally MSK Hands: ?Good air brake man strength bilaterally. No deformities noted. ?No synovitis noted to the MCPs, PIPs or DIPs. ?No tenderness to palpation of these joints. Heberden's nodes noted Wrists: ?Full range of motion at the wrists without pain. ?No tenderness to palpation or synovitis noted to the wrists. Elbows: Full range of motion without pain. No tenderness, weakness, swelling, increased warmth or erythema. Shoulders: Full active range of motion. Tenderness to palpation of the right AC joint Hips: Full range of motion without pain. Hip bursa: No tenderness to palpation Knees: ?Full range of motion. ?No tenderness, swelling, increased warmth or erythema. Crepitations felt bilaterally Ankles: Full range of motion. ?No tenderness, swelling, increased warmth or erythema.? Feet: ?Negative squeeze test. ?No tenderness to palpation or swelling of the MTPs. Tender points:?No tenderness to palpation of the bilateral trapezius, supraspinatus, greater trochanters, anterior costochondral junctions, bilateral gluteal areas, bilateral suboccipital muscle insertions SKIN Skin intact without rashes. Results Reviewed Results Reviewed: Laboratory Tests 10/04/23 07/03/24 08/21/24 13:23 09:52 09:29 WBC 7.6 RBC 4.21 Hgb 12.5 Hct 38.2 Plt Count 296 Sodium 142 Potassium 3.9 Chloride 107 Carbon Dioxide 30 H BUN 15 Creatinine 0.81 AST 29 ALT 23 Alkaline Phosphatase 186 H 25-OH Vitamin D Total 38.2 Assessment & Plan Assessment & Plan (1) Osteoporosis: Comment: DEXA 08/2022: AP Spine -1.1, Left femur neck -1.3, Left femur total -1.6 DEXA 08/2020: AP Spine -1.7, Left femur neck -1.5, Left femur total -1.6 Alendronate: ended in 2011. Prolia: 03/17/2019- 2022 Code(s): M81.0 - Age-related osteoporosis without current pathological fracture Category: Medical Qualifiers: Osteoporosis type: age-related Presence of current pathological fracture: without current pathological fracture Qualified Code(s): M81.0 - Age- related osteoporosis without current pathological fracture Plan: #Osteoporosis Patient is a 69-year-old female with osteoporosis here today for follow up. Prolia was stopped by the previous provider and we are currently monitoring her off of any bone strengthening agents. Ideally I would not have stopped her Prolia given the propensity of post Prolia therapy to cause rapid deterioration in bone density. However we will continue to monitor her. Due for bone density this month. If there is any worsening in her bone density we will restart therapy Plan - DEXA today - RTC 6 months - Labs before visit: CMP, Vit D (2) Generalized osteoarthritis: Code(s): M15.9 - Polyosteoarthritis, unspecified Plan: #Polyarticular OA Patient with polyarticular OA today complaining of right shoulder pain with tenderness to palpation of the right AC joint. Offered injection but patient deferred. We will send to physical therapy Plan - PT for right shoulder Plan I spent 22 minutes reviewing the record and labs, taking a history, examining the patient, discussing the treatment plan, ordering diagnostic work up and documenting in the medical record Orders: Orders XR DEXA axial skeleton Today M81.0 - Age-related osteoporosis without current pathological fracture Vitamin D 25-OH Total 6 Months E55.9 - Vitamin D deficiency, unspecified PT Evaluation and Treatment Today M19.011 - Primary osteoarthritis, right shoulder Comprehensive Met. Panel 6 Months M81.0 - Age-related osteoporosis without current pathological fracture Medications: New cholecalciferol (vitamin D3) 25 mcg PO DAILY 90 caps 1RF E55.9 - Vitamin D deficiency, unspecified Refilled tramadol 50 mg PO TID PRN 180 tabs 5RF pain M47.816 - Spondylosis without myelopathy or radiculopathy, lumbar region, M79.7 - Fibromyalgia Coding Level of Care Code Est Pt Level 3 (18509) Diagnoses Age-related osteoporosis without current pathological fracture M81.0 Osteoporosis type: age-related Presence of current pathological fracture: without current pathological fracture Generalized osteoarthritis M15.9
[2024-09-06 09:33] VITALS: BP 120/70; PULSE 65; O2SAT 96; BMI 28.9
--- OUTSIDE RECORDS SUMMARY | 2024-09-06 10:11 | XMS_ITS | Encounter Summary ---
Author Organization [employer] Address 75 [facility] 7 [place] [address] Care Team Providers Care Manager Port Name Role Phone Lóen Ly MD Primary Care Prov ider Reason for Visit * Reason Onset Date Comments Med Refill 05/16/2024 Encounter Details Date Type Department Care Team ([facility] st Contact Info) Description 05/16/2024 Telephone [facility] [address] [place] [address] León Ly MD [address] [place] [address] Med Refill Social History Tobacco Use Types [...] 11:05 AM EST Medication was sent to [facility] #[id number] on 05/15/24 #90 with 1 refill. * Telephone Encounter - Suha Harris - 05/16/2024 11:04 AM EST TC from pt requesting medication refill. Medications needing refill : levothyroxine (Synthroid, Levoxyl) 100 MCG tablet To be sent to: [facility] #[id number] documented in this encounter Plan of Treatment Upcoming Encounters Date Type Department Care Team (Late st Contact Info) Description 10/24/2024 10:00 AM EDT Office Visit [facility] [address] [place] [address] Gopi Molina MD [address] [place] [address] documented as of this encounter Visit Diagnoses Not on filedocumented in this encounter Additional Health Concerns Assessment Noted Time PHQ-9 Depression Total Score: 2 01/14/20 23 9:33 AM EDT documented as of this encounter Care Teams Manager Port Relationship Specialty Start Date End Date León Ly MD [address] [place] [address] PCP - General Internal Medicine 10/02/19 documented as of this encounter
--- OUTSIDE RECORDS SUMMARY | 2024-09-06 10:12 | XMS_ITS | Encounter Summary ---
Author Organization [employer] Address 75 [facility] 7 [place] [address] Care Team Providers Care Cabinet Builder Name Role Phone León Ly MD Primary Care Prov ider Reason for Visit * Reason Comments Med Refill Encounter Details Date Type Department Care Team ([facility] st Contact Info) Description 09/29/2023 Refill [facility] MED & PEDS [address] [place], [place] [phone] León Ly MD [address] [place] [address] Chronic pain syndrome Social History Tobacco Use [...] Description 10/24/2024 10:00 AM EDT Office Visit [facility] PEDS [address] [place] [address] Gopi Molina MD [address] [place] [address] documented as of this encounter Visit Diagnoses Diagnosis Chronic pain syndrome documented in this encounter Additional Health Concerns Assessment Noted Time PHQ-9 Depression Total Score: 2 01/14/20 23 9:33 AM EDT documented as of this encounter Care Teams Cabinet Builder Relationship Specialty Start Date End Date León Ly MD [address] [place] [address] PCP - General Internal Medicine 10/02/19 documented as of this encounter
--- OUTSIDE RECORDS SUMMARY | 2024-09-06 10:12 | XMS_ITS | Encounter Summary ---
Author Organization [employer] Address [address] [facility] 7 [place] [address] Care Team Providers Care Ager Tender Name Role Phone León Ly MD Primary Care Prov ider Reason for Visit * Reason Onset Date Comments Med Refill 05/27/2023 Encounter Details Date Type Department Care Team (Late st Contact Info) Description 05/27/2023 Telephone [facility] MEDICINE [address] [place] [address] León Ly MD [address] [place] [address] Med Refill Social History Tobacco Use Types [...] 50 MG tablet To be sent to: [id number] [place], [place] - [address] [place] [address] AT [facility] Patient also stated has been taken this medication as instructed before and it was 2 in th am an 2 in the pm please clarify documented in this encounter Plan of Treatment Upcoming Encounters Date Type Department Care Team (Late st Contact Info) Description 10/24/2024 10:00 AM EDT Office Visit [facility] MED & PEDS [address] [place] [address] Gopi Molina MD [address] [place] [address] documented as of this encounter Visit Diagnoses Not on filedocumented in this encounter Additional Health Concerns Assessment Noted Time PHQ-9 Depression Total Score: 2 01/14/20 23 9:33 AM EDT documented as of this encounter Care Teams Ager Tender Relationship Specialty Start Date End Date León Ly MD [address] [place] [phone] PCP - General Internal Medicine 10/02/19 documented as of this encounter
--- OUTSIDE RECORDS SUMMARY | 2024-09-06 10:12 | XMS_ITS | Clinical Summary ---
Author Organization [employer] Address [address] [facility] 7t [place] [address] Care Team Providers Care Universal Winding Machine Operator Name Role Phone León Ly MD [...] the morning. 1 kit 04/01/20 23 Active atorvastatin (Lipitor) 40 MG tabletIndications :Mixed [...] 90 tablet 3 06/21/19 25 2025 Active triamcinolone (Kenalog) 0.1 % creamIndications: Pruritus,Skin rash Apply topically if needed in the morning and at bedtime (pain and swelling). 80 g 2 08/22/19 Active cetirizine (ZyrTEC) 10 MG tabletIndications :Pruritus,Skin rash Take 1 tablet (10 mg) by mouth Once per day. 30 tablet 11 08/22/19 25 2025 Active cetirizine (ZyrTEC) 10 MG tablet Take 1 tablet (10 mg) by mouth in the morning. 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 Date Type Department Care Team Description 08/21/2024 9:00 AM EDT Office Visit [facility] MED & PEDS [address] [place] [address] Gopi Molina MD Pruritus (Primary Dx); Skin rash 08/21/2024 Travel 07/28/2024 Telephone [facility] MED & PEDS [address] [place] [address] León Ly MD Appointment Request (Pt needs derm appt) 07/24/2024 Telephone [facility] MED & PEDS [address] [place] [address] León Ly MD Appointment Request (PT NEEDS DERM APPT) 07/21/2024 10:15 AM EST Telemedicine [facility] MED & PEDS [address] [place] [address] León Ly MD Pruritus (Primary Dx); Primary hypertension 07/21/2024 Travel 07/20/2024 Telephone [facility] MED & PEDS [address] [place] [address] León Ly MD chart prep 06/21/2024 9:00 AM EST Telemedicine [facility] MED & PEDS [address] [place] [address] León Ly MD Current mild episode of major depressive disorder without prior episode (CMS/HCC) (Primary Dx); Dietary counseling; Exercise counseling; Primary hypertension; Acquired hypothyroidism; Anxiety 06/21/2024 Travel 06/20/2024 Telephone [facility] MED & PEDS [address] [place] [address] León Ly MD chart prep from Last 3 Months Immunizations Name Administration [...] Sign Reading Time Taken Comments Blood Pressure 131/73 08/21/2024 9:02 AM EDT Pulse 62 08/21/2024 9:02 AM EDT Temperature 36.7 ??C (98.1 ??F) 08/21/2024 9:02 AM ED T Respiratory Rate 14 08/21/2024 9:02 AM EDT Oxygen Saturation 97% 08/21/2024 9:02 AM EDT Inhaled Oxygen Concentration - - Weight 70.1 kg (154 lb 9.6 oz) 08/21/2024 9:02 A M EDT Height 154.9 cm (5' 1 ) 08/21/2024 9:02 AM EDT Body Mass Index 29.21 08/21/2024 9:02 AM EDT Plan of Treatment Upcoming Encounters Date Type Department Care Team ([facility] st Contact Info) Description 10/24/2024 10:00 AM EDT Office Visit [facility] MED & PEDS [address] [place] [address] Gopi Molina MD [address] [place] [address] Health Maintenance Due Date Last Done Comments CT Colonography 1955 Colonoscopy 1955 Dental Prophylaxis 1955 FIT 1955 FOBT 1955 Sigmoidoscopy 1955 Dental X-Ray: Bitewings 09/14/2013 09/13/2012 Zoster Vaccines (2 of 3) 06/07/2017 04/12/2017 DTaP/Tdap/Td Vaccines (2 - Td or Tdap) 07/05/2023 07/05/2013, 01/10/2003 Dental Oral Exam 10/14/2023 04/14/2023, 09/13/2012 COVID-19 Vaccine ( season) 2024 05/06/2021, 10/08/2020, 09/10/2020 Influenza Vaccine (#1) 2024 3, 02/12/2022, 02/12/2021, Additional history exists Tobacco Screening 12/06/2024 12/07/2023 Depression Monitoring 12/19/2024 06/21/2024, 025 Alcohol/Substance Use Screening 06/21/2025 06/21/2024 Depression Screening 06/21/2025 06/21/2024, 06/21/19 25 SDOH Screening 06/21/2025 06/21/2024 Mammogram 09/28/2025 09/29/2023, 05/0 09/2022, 11/06/2020, Additional history exists Colorectal Cancer Screening 02/09/2026 FIT DNA/Cologuard 02/09/2026 02/09/2023 Dental X-Ray: Full Mouth 04/15/2026 04/14/2023, /2 07/2012 Lipid Panel 07/03/2029 07/03/2024, 0711/2023, 08/25/2023, Additional history exists RSV Patients and Patients [...] Procedure Name Priority Date/Time Associated Diagnosis Comments SYPHILIS SCREEN Routine 08/21/2024 9:29 AM EDT Pruritus Skin rash CBC WITH AUTO DIFFERENTIAL Routine 08/21/2024 9:29 AM EDT Pruritus Skin rash TSH W/REFLEX TO FT4 Routine 07/03/2024 9 :52 AM EST Acquired hypothyroidism LIPID PANEL, STANDARD Routine 07/03/2024 9:52 AM EST Primary hypertension COMPREHENSIVE METABOLIC PANEL Routine 07/03/2024 9:52 AM EST Primary hypertension BI MAMMOGRAM SCREENING TOMOSYNTHESIS BILATERAL Routine 09/29/2023 10:35 AM EDT PANORAMIC RADIOGRAPHIC IMAGE Routine 04/14/2023 10:00 AM EST PERIODIC ORAL EVALUATION - ESTABLISHED PATIENT Routine 04/14/2023 10:00 AM EST LAB COLOGUARD?? COLON CANCER SCREEN Routine 02/09/2023 11:00 AM EDT Screening for colon cancer ZZZ HISTORICAL HEPATITIS C AB W/REFL TO HCV RNA, QN, PCR Routine 11/17/2021 9:25 AM EDT INTRAORAL - COMPLETE SERIES OF RADIOGRAPHIC IMAGES Routine 09/13/2012 12:00 AM EDT from Last 3 Months or Most Recently Relevant to Health Maintenance Results * Syphilis Screen (08/21/2024 9:29 AM EDT) Pathologist [facility] Syphilis Screen Nonreactive Nonreactive [facility] Blood 08/21/2024 9:29 AM EDT 08/21/2024 2:54 PM EDT us Gopi Molina MD LAB BLOOD ORDERABLES Final Result [facility] [address] [place] [phone] * CBC auto differential (08/21/2024 9:29 AM EDT) White Blood Count 7.6 4.8 - 10.8 X10*3/uL [facility] Red Blood Count 4.21 4.20 - 5.50 X10*6/uL [facility] Hemoglobin 12.5 12.0 - 16.0 g/dl [facility] Hematocrit 38.2 37.0 - 47.0 % [facility] Mean Corpuscular Volume 90.7 80.0 - 98.0 fL [facility] Mean Corpuscular Hemoglobin 29.7 27.0 - 33.0 pg [facility] Mean Corpuscular HGB Conc 32.7 31.0 - 35.0 g/dl [facility] Red Cell Distribution Width 14.5 11.0 - 16.0 % [facility] Platelet Count 296 160 - 400 X10*3/uL [facility] Mean Platelet Volume 10.1 9.4 - 12.3 fL [facility] Neutrophils Percent Auto 54.1 45 - 73 % [facility] Imm Gran Pct Auto 0.3 0.0 - 0.4 % [facility] Lymphocytes Percent Auto 34.8 20 - 40 % [facility] Monocytes Percent Auto 8.3 2 - 11 % [facility] Eosinophils Percent Auto 2.1 0 - 4 % [facility] Basophils Percent Auto 0.4 0 - 2 % [facility] NRBC Pct Auto 0.0 0.0 - 0.2 /100WBC [facility] Neutrophils Absolute Auto 4.1 2.0 - 8.3 x10*3/uL [facility] Imm Gran Abs Auto 0.02 0.00 - 0.03 X10*3/uL [facility] Lymphocytes Absolute Auto 2.6 1.2 - 4.9 X10*3/uL [facility] Monocytes Absolute Auto 0.6 0.1 - 1.2 X10*3/uL [facility] Eosinophils Absolute Auto 0.2 0.0 - 0.4 X10*3/uL [facility] Basophils Absolute Auto 0.0 0.0 - 0.2 X10*3/uL [facility] NRBC Abs Auto 0.000 0.0 - 0.012 X10*3/uL [facility] Blood Venous blood specimen / Unknown 08/21/2024 9:29 AM EDT 08/21/2024 2:54 PM EDT us Gopi Molina MD LAB BLOOD ORDERABLES Final Result [facility] [address] [place] [phone] * TSH W/Reflex to FT4 (07/03/2024 9:52 AM EST) TSH reflex Free T4 0.67 0.32 - 4.0 uIU/mL [facility] Blood Venous blood specimen / Unknown 07/03/2024 9:52 AM EST 07/03/2024 1:59 PM EST León Krause MD LAB BLOOD ORDERABL ES Final Result Performing Organization Address [facility] [[email or web address]] Co de Phone Number [facility] [address] [place] [phone] * (ABNORMAL) Lipid Panel, Standard (07/03/2024 9:52 AM EST) Triglycerides 154(H) <150 mg/dL [facility] Comment:Desirable Triglyceri de: less than 150 mg/dLBorderline High Triglyceride 150-199 mg/dLHigh Triglyceride: 200-499 mg/dLVery High Triglyceride: greater than or equal to 5OO mg/dL Cholesterol 150 <200 mg/dL [facility] Comment:Desirable Cholestero l: less than 200 mg/dLBorderline High Cholesterol: 200-239 mg/dLHigh Cholesterol: greater than 239 mg/dL LDL Cholesterol Calculated 80 <100 mg/dL [facility] Comment:Desirable LDL: less than 100 mg/dLNear Optimal/Above Optimal LDL: 110- 129 mg/dLBorderline High LDL: 130-159 mg/dLHigh LDL: 160-189 mg/dLVery High LDL: greater than or equal to 190 mg/dL HDL Cholesterol 40(L) >40 mg/dL [facility] Comment:Desirable HDL: great er than 40 mg/dL Note: This HDL assay may give artificially low results in patients with liver disease. Blood Venous blood specimen / Unknown 07/03/2024 9:52 AM EST 07/03/2024 1:59 PM EST us León Krause MD LAB BLOOD ORDERABL ES Final Result Performing Organization Address [facility]/ZIP Co de Phone Number [facility] [address] [place] [phone] * (ABNORMAL) Comprehensive Metabolic Panel (07/03/2024 9:52 AM EST) Sodium 142 135 - 145 mmol/L [facility] Potassium 3.9 3.3 - 5.1 mmol/L [facility] Chloride 107 96 - 108 mmol/L [facility] Carbon Dioxide 30(H) 22 - 29 mmol/L [facility] Anion Gap 9(L) 12 - 20 [facility] Urea Nitrogen (BUN) 15 9 - 16 mg/dL [facility] Creatinine, Serum 0.81 0.5 - 1.4 mg/dL [facility] Estimated Glomerular Filt Rate >60 [facility] Comment:Chronic Kidney Disea se: Estimated GFR < 60 mL/min/1.23n8Dsfurx Kidney Disease: Estimated GFR < 15 mL/min/1.73m2 Glucose 99 60 - 115 mg/dL [facility] Calcium 10.0 8.4 - 10.2 mg/dL [facility] Bilirubin, Total 0.5 0.0 - 1.0 mg/dL [facility] Aspartate Amino Transferase 29 5 - 31 U/L [facility] Alanine Aminotransferase 23 0 - 31 U/L [facility] Total Protein 7.2 6.5 - 8.0 g/dL [facility] Albumin Level 4.0 3.5 - 5.0 g/dL [facility] Alkaline Phosphatase 186(H) 39 - 117 U/L [facility] Blood Venous blood specimen / Unknown 07/03/2024 9:52 AM EST 07/03/2024 1:59 PM EST us León Krause MD LAB BLOOD ORDERABL ES Final Result [facility] [address] [place] [phone] * BI Mammogram Screening Tomosynthesis Bilateral (09/29/2023 10:35 AM EDT) Anatomical Region Laterality Modality Breast Bilateral Mammography 09/29/2023 10:3 5 AM EDT Narrative 10/29/2023 8:11 AM EDT ? [facility] ? [address] ?[place] [address] ? Mammography Report ? Signed ? Patient: Brooklyn,Erica ?MR#: [id number] ? : 1955 ?Acct:[id number] ? Age/Sex: 68 / F ?ADM Date: 09/29/23 ? Loc: HO.MAMMO ? Attending Dr: León Krause MD ? Ordering Physician: León Ly MD ?Res ?? ults: 1Negative ? Date of Service: 09/29/23 ?Follow Up: 1 Year From Orig ?? inal Mammogram ? Procedure(s): MM tomosynthesis screening BI ?? Accession Number(s): [id number] ? cc: León Ly MD ? EXAMINATION: [...] 10/29/23806 ? DD/ 1035 ? TD/TT: ? Adolescent Coordinator: ? Procedure Note Beth, Image - 10/29/2023 [place] [facility] [address] [place] [address] Mammography Report Signed Patient: Olivia Larios#: [id number] : 7Acct:[id number] Age/Sex: 68 / FADM Date: 09/29/23 Loc: HO.MAMMO Attending Dr: León Krause MD Ordering Physician: León Ly ults: 1Negative Date of Service: 09/29/23Follow Up: 1 Year From Orig inal Mammogram Procedure(s): MM tomosynthesis screening BI Accession Number(s): [id number] cc: León Ly MD EXAMINATION: MM SCREENING [...] in OV> 10/29/23 0807 DD/ 1035 TD/TT: Adolescent Coordinator: [facility] Krause MD IM BI PROCEDURES Edited Result - Final * Cologuard?? colon cancer screening (02/09/2023 11:00 AM EDT) Cologuard Result Negative Negative 02/15/20 8:32 AM EDT [facility] [employer] (CLIA #:[id number]) Comment: NEGATIVE TEST RESULT. A negative Cologuard [...] screened with both Cologuard and colonoscopy. (Joey Dasilva al, N Engl J Med 2014;370(14):1286- 1297) The normal value (reference range) for this assay is negative. COLOGUARD RE-SCREENING RECOMMENDATION: Periodic colorectal cancer screening is an important part of preventive healthcare for asymptomatic individuals at average risk for colorectal cancer. ??Following a negative Cologuard result, the [place] Cancer Society and U.S. Multi-Society Task Force screening guidelines recommend a Cologuard re-screening interval of 3 years. References: [place] [employer] Guideline for Colorectal Cancer Screening: https://www.cancer.org/cancer/taxlh-kgpvfd-iigaid/hansnwmww-jgwkcgvoa-hgrbzhm/ac s-rec ommendations.html.; Jose Angel GRIDER, Mansoor GARCÍA, Felicita MOORE, Colorectal Cancer Screening: Recommendations for Physicians and Patients from the U.S. Multi-Society Task Force on Colorectal Cancer Screening , Am J Gastroenterology 2017; 112:2592-3833. TEST DESCRIPTION: Composite algorithmic analysis of stool [...] screened with both Cologuard and colonoscopy. (Joey Dasilva al, N Engl J Med 2014;370(14):9122-0730.) Cologuard may produce a false negative or false positive result (no colorectal cancer or precancerous polyp present at colonoscopy follow up). A negative Cologuard test result does not guarantee the absence of CRC or advanced adenoma (pre-cancer). The current Cologuard screening interval is every 3 years. ([employer] Cancer Society and U.S. Multi-Society Task Force). Cologuard performance data in a 10,000 patient pivotal study using colonoscopy as the reference method can be accessed at the following location: www.exactlabs.com/results. Additional description of the Cologuard test process, warnings and precautions can be found at www.colHipuird.com. Stool specimen (specimen) 02/09/2023 11:00 AM EDT 02/10/2023 9:36 PM EDT León Krause MD LAB MOLECULAR DIAG NOSTICS ORDERABLES Final Result [facility] [employer] (CLIA #:[id number]) [place] [address], * HEPATITIS C AB W/REFL TO HCV RNA, QN, PCR (11/17/2021 9:25 AM EDT) HEPATITIS C ANTIBODY NON-REACT ENEIDA NON-REACT ENEIDA [facility] INDEX 0.04 <1.00 [facility] Comment: ?? HCV antibody was non-reactive. There is no laboratory ?? evidence of HCV infection. ?? In most cases, no further action is required. However, if recent HCV exposure is suspected, a test for HCV RNA (test code 28843) is suggested. ?? For additional information please refer to http://education.[employer] Mobile/faq/QMB12l2 (This link is being provided for informational/ educational purposes only.) ?? 11/17/2021 9:25 AM EDT León Krause MD HISTORICAL/NON ORD ERABLE LABS Final Result Performing Organization Address City/[facility]/ZIP Co de Phone Number [facility] [address] from Last 3 Months or Most Recently Relevant to Health Maintenance Insurance [place]IC[place] [facility] MEDICAID STAND ADULT Care Teams Universal Winding Machine Operator Relationship Specialty Start Date End Date OnofreLeón Zhu MD [address] [place] [phone] PCP - General Internal Medicine 10/02/19
--- OUTSIDE RECORDS SUMMARY | 2024-09-06 10:12 | XMS_ITS | Encounter Summary ---
Author Organization [employer] Address [address] [facility] 7 [place] [address] Care Team Providers Care [employer] Home Economics Teacher Name Role Phone León Ly MD Primary Care Prov ider Reason for Visit * Reason Onset Date Comments Med Refill 04/18/2024 Encounter Details Date Type Department Care Team ([facility] st Contact Info) Description 04/18/2024 Telephone [facility] MEDICINE [address] [place] [address] León Ly MD [address] [place] [address] Med Refill Social History Tobacco Use Types [...] 50 MG tablet To be sent to: [id number] AT [facility] documented in this encounter Plan of Treatment Upcoming Encounters Date Type Department Care Team (Late st Contact Info) Description 10/24/2024 10:00 AM EDT Office Visit [facility] PEDS [address] [place] [address] Gopi Molina MD [address] [place] [address] documented as of this encounter Visit Diagnoses Not on filedocumented in this encounter Additional Health Concerns Assessment Noted Time PHQ-9 Depression Total Score: 2 01/14/20 23 9:33 AM EDT documented as of this encounter Care Teams [employer] Home Economics Teacher Relationship Specialty Start Date End Date León Ly MD [address] [place] [address] PCP - General Internal Medicine 10/02/19 documented as of this encounter
--- OUTSIDE RECORDS SUMMARY | 2024-09-06 10:12 | XMS_ITS | Encounter Summary ---
Author Organization [employer] Address [address] [place] [address] [address] [place] [address] Care Team Providers Care Inspector And Clipper Name Role Phone León Ly MD Primary Care Prov ider Reason for Visit * Reason Comments Med Refill Encounter Details Date Type Department Care Team (Late Contact Info) Description 01/17/2023 Refill [facility] & PEDS [address] [place] [address] Gopi Molina MD [address] [place] [address] Chronic pain of left knee Social History [...] Department Care Team (Late Contact Info) Description 10/24/2024 10:00 AM EDT Office Visit [facility] PEDS [address] [place], [place] [phone] Gopi Molina MD [address] [place], [place] [phone] documented as of this encounter Visit Diagnoses Diagnosis Chronic pain of left knee documented in this encounter Additional Health Concerns Assessment Noted Time PHQ-9 Depression Total Score: 2 01/14/20 23 9:33 AM EDT documented as of this encounter Care Teams Inspector And Clipper Relationship Specialty Start Date End Date León Ly MD [address] [place] [phone] PCP - General Internal Medicine 10/02/19 documented as of this encounter
--- OUTSIDE RECORDS SUMMARY | 2024-09-06 10:12 | XMS_ITS | Encounter Summary ---
Author Organization [employer] Address [address] [facility] 7 [place] [address] Care Team Providers Care Vp Genetic Name Role Phone León Ly MD Primary Care Prov ider Reason for Visit * Reason Comments Med Refill Encounter Details Date Type Department Care Team ([facility] st Contact Info) Description 09/07/2023 Refill [facility] & PEDS [address] [place], [place] [phone] León Ly MD [address] [place] [address] Acquired hypothyroidism Social History Tobacco Use Types [...] Description 10/24/2024 10:00 AM EDT Office Visit [facility] MED & PEDS [address] [place] [address] Gopi Molina MD [address] [place] [address] documented as of this encounter Visit Diagnoses Diagnosis Acquired hypothyroidism Unspecified hypothyroidism documented in this encounter Additional Health Concerns Assessment Noted Time PHQ-9 Depression Total Score: 2 01/14/20 23 9:33 AM EDT documented as of this encounter Care Teams Vp Genetic Relationship Specialty Start Date End Date León Ly MD [address] [place] [address] PCP - General Internal Medicine 10/02/19 documented as of this encounter
--- OUTSIDE RECORDS SUMMARY | 2024-09-06 10:12 | XMS_ITS | Encounter Summary ---
Author Organization [employer] Address [address] [facility] 7 [place] [address] Care Team Providers Care Director Public Policy Name Role Phone León Ly MD Primary Care Prov ider Reason for Visit * Reason Onset Date Comments Med Refill 02/17/2024 Encounter Details Date Type Department Care Team ([facility] st Contact Info) Description 02/17/2024 Telephone [facility] MEDICINE [address] [place] [address] León Ly MD [address] [place] [address] Med Refill Social History Tobacco Use Types [...] 50 MG tablet To be sent to: [id number] AT [facility] documented in this encounter Plan of Treatment Upcoming Encounters Date Type Department Care Team (Late st Contact Info) Description 10/24/2024 10:00 AM EDT Office Visit [facility] MED & PEDS [address] [place] [address] Gopi Molina MD [address] [place] [address] documented as of this encounter Visit Diagnoses Not on filedocumented in this encounter Additional Health Concerns Assessment Noted Time PHQ-9 Depression Total Score: 2 01/14/20 23 9:33 AM EDT documented as of this encounter Care Teams Director Public Policy Relationship Specialty Start Date End Date León Ly MD [address] [place] [address] PCP - General Internal Medicine 10/02/19 documented as of this encounter
--- OUTSIDE RECORDS SUMMARY | 2024-09-06 10:12 | XMS_ITS | Encounter Summary ---
Author Organization [employer] Address 75 [facility] 7 [place] [address] Care Team Providers Care Ship Liner Name Role Phone León Ly MD Primary Care Prov ider Reason for Visit * Reason Comments Med Refill Encounter Details Date Type Department Care Team ([facility] st Contact Info) Description 03/09/2024 Refill [facility] CHC MED & PEDS [address] [place], [place] [phone] León Ly MD [address] [place] [address] Social History Tobacco Use Types Packs/Day Years [...] Description 10/24/2024 10:00 AM EDT Office Visit [facility] MED & PEDS [address] [place] [address] Gopi Molina MD [address] [place] [address] documented as of this encounter Visit Diagnoses Not on filedocumented in this encounter Additional Health Concerns Assessment Noted Time PHQ-9 Depression Total Score: 2 01/14/20 23 9:33 AM EDT documented as of this encounter Care Teams Ship Liner Relationship Specialty Start Date End Date León Ly MD [address] [place] [address] PCP - General Internal Medicine 10/02/19 documented as of this encounter
--- OUTSIDE RECORDS SUMMARY | 2024-09-06 10:12 | XMS_ITS | Encounter Summary ---
Author Organization [employer] Address 75 [facility] 7 [place] [address] Care Team Providers Care Horse Doctor Name Role Phone León Ly MD Primary Care Prov ider Reason for Visit * Reason Comments Med Refill Encounter Details Date Type Department Care Team ([facility] st Contact Info) Description 12/04/2023 Refill [facility] CHC MED & PEDS [address] [place], [place] [phone] León Ly MD [address] [place] [address] Fibromyalgia Social History Tobacco Use Types Packs/Day [...] Description 10/24/2024 10:00 AM EDT Office Visit [facility] CHC MED & PEDS [address] [place] [address] Gopi Molina MD [address] [place] [address] documented as of this encounter Visit Diagnoses Diagnosis Fibromyalgia Unspecified myalgia and myositis documented in this encounter Additional Health Concerns Assessment Noted Time PHQ-9 Depression Total Score: 2 01/14/20 23 9:33 AM EDT documented as of this encounter Care Teams Horse Doctor Relationship Specialty Start Date End Date León Ly MD [address] [place] [address] PCP - General Internal Medicine 10/02/19 documented as of this encounter
--- OUTSIDE RECORDS SUMMARY | 2024-09-06 10:12 | XMS_ITS | Encounter Summary ---
Author Organization [facility] Address [address] [place] [address] [facility] [place] [address] Care Team Providers Care Switch Crew Supervisor Name Role Phone León Ly MD Primary Care Prov ider Reason for Visit * Reason Comments Med Refill Encounter Details Date Type Department Care Team (Late st Contact Info) Description 07/20/2022 Refill [facility] CHC MED & PEDS [address] [place] [address] León Ly MD 505 [place] [address] Social History Tobacco Use Types Packs/Day Years [...] Description 10/24/2024 10:00 AM EDT Office Visit [facility] CHC MED & PEDS [address] [place], [place] [phone] Gopi Molina MD 505 [place] [address] documented as of this encounter Visit Diagnoses Not on filedocumented in this encounter Care Teams Switch Crew Supervisor Relationship Specialty Start Date End Date León Ly MD [address] [place] [address] PCP - General Internal Medicine 10/02/19 documented as of this encounter
--- OUTSIDE RECORDS SUMMARY | 2024-09-06 10:12 | XMS_ITS | Encounter Summary ---
Author Organization [employer] Address 75 [facility] 7t [place] [address] Care Team Providers Care Switchboard Operator Assistant Name Role Phone León Ly MD Primary Care Prov ider Encounter Details Date Type Department Care Team ([facility] st Contact Info) Description 05/28/2023 Orders Only [facility] CHC MED & PEDS [address] [place], [place] [phone] León Ly MD 505 [place] [address] Social History Tobacco Use Types Packs/Day Years [...] Description 10/24/2024 10:00 AM EDT Office Visit [facility] MED & PEDS 505 [place] [address] Gopi Molina MD 505 [place] [address] documented as of this encounter Visit Diagnoses Not on filedocumented in this encounter Additional Health Concerns Assessment Noted Time PHQ-9 Depression Total Score: 2 01/14/20 23 9:33 AM EDT documented as of this encounter Care Teams Switchboard Operator Assistant Relationship Specialty Start Date End Date León Ly MD 505 [place] [address] PCP - General Internal Medicine 10/02/19 documented as of this encounter
--- OUTSIDE RECORDS SUMMARY | 2024-09-06 10:12 | XMS_ITS | Encounter Summary ---
Author Organization [employer] Address 75 [facility] 7 [place] [address] Care Team Providers Care Rubber Press Tender Name Role Phone León Ly MD Primary Care Prov ider Reason for Visit * Reason Onset Date Comments Medication Question 05/13/2023 Encounter Details Date Type Department Care Team ([facility] st Contact Info) Description 05/13/2023 Telephone [facility] MEDICINE [address] [place] [address] León Ly MD [address] [place] [address] Medication Question Social History Tobacco Use Types [...] Miscellaneous Notes * Telephone Encounter - Darrel Gene - 05/13/2023 2:19 PM EST Tc from [...] Description 10/24/2024 10:00 AM EDT Office Visit [facility] CHC MED & PEDS [address] [place] [address] Gopi Molina MD [address] [place] [address] documented as of this encounter Visit Diagnoses Not on filedocumented in this encounter Additional Health Concerns Assessment Noted Time PHQ-9 Depression Total Score: 2 01/14/20 23 9:33 AM EDT documented as of this encounter Care Teams Rubber Press Tender Relationship Specialty Start Date End Date León Ly MD [address] [place] [address] PCP - General Internal Medicine 10/02/19 documented as of this encounter
== END 2024-09-06 10:00 | disposition home or self-care (01) ==
LOC: HO.RHE 09:18
PROVIDERS: PCP Internal Medicine; Visit Provider Student in an Organized Health Care Education/Training Program
DX: M81.0 Age-related osteoporosis without current pathological fracture (principal); M15.9 Polyosteoarthritis, unspecified
CPT/HCPCS: 99213

== ENCOUNTER → 2024-09-06 09:18 | Outpatient (BNVA) | payer MEDICARE, MEDICAID, SELFPAY | PROVIDERS: PCP Internal Medicine; Visit Provider Student in an Organized Health Care Education/Training Program | DX: M81.0 Age-related osteoporosis without current pathological fracture (principal); M79.7 Fibromyalgia; M19.011 Primary osteoarthritis, right shoulder; M47.816 Spondylosis without myelopathy or radiculopathy, lumbar region; E55.9 Vitamin D deficiency, unspecified | CPT/HCPCS: 99212 ==

== ENCOUNTER 2024-10-11 08:21 | Outpatient (REF) | payer MEDICARE, MEDICAID, SELFPAY ==
--- NOTE | ~2024-10-11 | MM_ITS ---
EXAMINATION: DXA BONE DENSITY AXIAL HISTORY: M81.0 - Age-related osteoporosis without current pathological fracture TECHNIQUE: [employer] Dual energy absorptiometry (DEXA) of the lumbar spine, total left hip, and femoral neck was performed. COMPARISON: Comparison is made with the prior examination dated 09/15/2022. FINDINGS: The bone mineral density of the lumbar spine is 1.024 with a T-score of -1.3, and a Z-score of 0.3. This is indicative of osteopenia. This represents a BMD change of -2.8% compared to the prior exam. This is statistically significant. The bone mineral density of the left total hip is 0.781 with a T-score of -1.8, and a Z-score of -0.5. This is indicative of osteopenia. This represents a BMD change of -3.6% compared to the prior exam. This is not statistically significant. The bone mineral density of the left femoral neck is 0.836 with a T-score of -1.5, and a Z-score of 0.1. This is indicative of osteopenia. This represents a BMD change of -2.3% compared to the prior exam. FRACTURE RISK: The FRAX index suggests a ten year probability of major osteoporotic fracture of 5.2%, and of hip fracture 0.6%. MM/XR DEXA axial skeleton IMPRESSION: Based on bone mineral density, and according to World Health Organization (WHO) criteria, the diagnosis is consistent with osteopenia. All bone density values are in grams per centimeter squared (g/cm2). Statistically, 68% of repeat scans fall within 1 SD (+/- 0.010 g/cm2 for AP spine L1-L4) and 1 SD (+/- 0.012 g/cm2 for femur total) FRAX is a trademark of the [employer]'s [place] for Metabolic Bone Disease, a World Health Organization (WHO) Collaborating Center. Electronically signed by: Alex Portillo MD 10/11/2024 09:27 AM EDT
== END 2024-10-11 08:22 | disposition home or self-care (01) ==
LOC: HO.MAMMO 08:21
PROVIDERS: PCP Internal Medicine; Visit Provider Student in an Organized Health Care Education/Training Program
DX: M81.0 Age-related osteoporosis without current pathological fracture (principal)
CPT/HCPCS: 77080

== ENCOUNTER → 2024-10-11 08:45 | Outpatient (BNV) | payer MEDICARE, MEDICAID, SELFPAY | PROVIDERS: PCP Internal Medicine; Visit Provider Radiology Diagnostic Radiology | DX: E28.39 Other primary ovarian failure (principal) | CPT/HCPCS: 77080 ==

== ENCOUNTER 2024-10-25 09:36 | Outpatient (REF) | payer MEDICARE, MEDICAID, SELFPAY ==
--- OUTSIDE RECORDS SUMMARY | 2024-10-25 10:03 | XMS_ITS | Encounter Summary ---
Author Organization [employer] Address [address] [address] Care Team Providers Care Doll Surgeon Name Role Phone León Ly MD Primary Care Prov ider Reason for Visit * Reason Onset Date Comments Med Refill 05/16/2024 Encounter Details Date Type Department Care Team ([facility] st Contact Info) Description 05/16/2024 Telephone [facility] MEDICINE [address] [place] [address] León Ly MD [address] [place] [address] Med Refill Social History Tobacco Use Types [...] 11:05 AM EST Medication was sent to [facility] #[id number] on 05/15/24 #90 with 1 refill. * Telephone Encounter - Suha Harris - 05/16/2024 11:04 AM EST TC from pt requesting medication refill. Medications needing refill : levothyroxine (Synthroid, Levoxyl) 100 MCG tablet To be sent to: [facility] #[id number] documented in this encounter Plan of Treatment Upcoming Encounters Date Type Department Care Team (Late st Contact Info) Description 11/01/2024 2:45 PM EDT Clinical Support [facility] MED & PEDS [address] [place] [address] documented as of this encounter Visit Diagnoses Not on filedocumented in this encounter Additional Health Concerns Assessment Noted Time PHQ-9 Depression Total Score: 2 01/14/20 23 9:33 AM EDT documented as of this encounter Care Teams Doll Surgeon Relationship Specialty Start Date End Date León Ly MD [address] [place] [address] PCP - General Internal Medicine 10/02/19 documented as of this encounter
[2024-10-25 14:10] LABS: Alanine Aminotransferase 20 U/L (0-31); Alkaline Phosphatase 214 U/L (39-117); Anion Gap 9 (12-20); Aspartate Amino Transferase 35 U/L (5-31); Bilirubin Total 0.4 mg/dL (0.0-1.0); Blood Urea Nitrogen 13 mg/dL (9-16); Calcium 9.6 mg/dL (8.4-10.2); Carbon Dioxide 26 mmol/L (22-29); Chloride 110 mmol/L (96-108); Estimated Glomerular Filt Rate > 60; Glucose Random 95 mg/dL (60-115); Potassium 3.7 mmol/L (3.3-5.1); Sodium 141 mmol/L (135-145); Total Protein 6.8 g/dL (6.5-8.0)
[2024-10-25 14:30] LABS: Vitamin D 25-OH Total 53.2 ng/mL (>30)
== END 2024-10-25 09:37 | disposition home or self-care (01) ==
LOC: HO.LAB 09:36
PROVIDERS: PCP Internal Medicine; Visit Provider Student in an Organized Health Care Education/Training Program
DX: M81.0 Age-related osteoporosis without current pathological fracture (principal); E55.9 Vitamin D deficiency, unspecified
CPT/HCPCS: 36415; 80053; 82306

== ENCOUNTER 2024-11-01 09:42 | Outpatient (AMB) | payer MEDICARE, MEDICAID, SELFPAY ==
--- NOTE | 2024-11-01 10:13 | AM.OFFVISNUR ---
Intake Visit Reasons: prolia injection Allergies No Known Allergies Allergy (Verified 09/06/24 09:32) Office Meds Prolia 60 mg/mL subcutaneous syringe Performing Provider: Renetta Arzate MD Performing Location: [facility] Endocrinology Administered by: Su Perez RN on 11/01/24 10:24 Dose Route Admin Location Dispensed Lot Number Expiration Date NDC Radio Program Director 60 mg subcut right upper arm 1 mL [id number] 01/21/27 65297-681-98 [facility] Comments: Pt declined parts interpreter. Pt able to confirm and confirm understanding of today's procedure/injection. Pt given subcutaneous injection in the right upper arm. Pt stayed for 15 mins after injection was given with no adverse reaction reported. Assessment & Plan Assessment & Plan Orders: Orders AMB Denosumab Injection Practice Supplied Today M81.0 - Age-related osteoporosis without current pathological fracture Medications: New Prolia (denosumab) 60 mg subcut ONCE 1 mL 0RF NS M81.0 - Age-related osteoporosis without current pathological fracture Coding
--- OUTSIDE RECORDS SUMMARY | 2024-11-01 10:39 | XMS_ITS | Encounter Summary ---
Author Organization [employer] Address [address] [address] Care Team Providers Care Personnel Associate Name Role Phone León Ly MD Primary Care Prov ider Reason for Visit * Reason Onset Date Comments Med Refill 05/16/2024 Encounter Details Date Type Department Care Team ([facility] st Contact Info) Description 05/16/2024 Telephone [facility] MEDICINE [address] [place] [address] León Ly MD 505 [place] [address] Med Refill Social History Tobacco Use Types [...] 11:05 AM EST Medication was sent to [facility] #[id number] on 05/15/24 #90 with 1 refill. * Telephone Encounter - Suha Harris - 05/16/2024 11:04 AM EST TC from pt requesting medication refill. Medications needing refill : levothyroxine (Synthroid, Levoxyl) 100 MCG tablet To be sent to: [facility] #[id number] documented in this encounter Plan of Treatment Not on file documented as of this encounter Visit Diagnoses Not on filedocumented in this encounter Additional Health Concerns Assessment Noted Time PHQ-9 Depression Total Score: 2 01/14/20 23 9:33 AM EDT documented as of this encounter Care Teams Personnel Associate Relationship Specialty Start Date End Date León Ly MD [address] [place] [address] PCP - General Internal Medicine 10/02/19 documented as of this encounter
== END 2024-11-01 10:26 | disposition home or self-care (01) ==
LOC: HO.RHE 09:42
PROVIDERS: PCP Internal Medicine; Visit Provider Student in an Organized Health Care Education/Training Program
DX: M81.0 Age-related osteoporosis without current pathological fracture (principal)

== ENCOUNTER → 2024-11-01 09:42 | Outpatient (BNVA) | payer MEDICARE, MEDICAID, SELFPAY | PROVIDERS: PCP Internal Medicine; Visit Provider Student in an Organized Health Care Education/Training Program | DX: M81.0 Age-related osteoporosis without current pathological fracture (principal) | CPT/HCPCS: 96372; J0897 ==

== ENCOUNTER 2025-02-06 10:34 | Outpatient (REF) | payer MEDICARE, MEDICAID, SELFPAY ==
--- OUTSIDE RECORDS SUMMARY | 2025-02-06 10:00 | XMS_ITS | Encounter Summary ---
Author Organization [employer] Address 75 [facility] 7 [place] [address] Care Team Providers Care Staff Interpreter Name Role Phone León Ly MD Primary Care Prov ider Encounter Details Date Type Department Care Team (Latest Contact Info) Description 02/06/2025 10:00 AM EDT Office Visit [facility] CHC MED & PEDS [address] [place] [address] Gopi Molina MD [address] [place] [address] Interface dermatitis, lichenoid type (Primary Dx); Acquired hypothyroidism Social History Tobacco Use Types Packs/Day Years Used Date Smoking Tobacco: Never Passive Smoke Exposure: Never Smokeless Tobacco: Never Depression Answer Date Recorded Patient Health Questionnaire-9 Score 0 12/21/2024 Patient Health Questionnaire-9 Score 0 12/21/2024 Last PHQ-9: Questionnaire Data Not on file 0 12/21/2024 Housing Stability Answer Date Recorded What is [...] Answer Date Recorded Patient Health Questionnaire-2 Score 0 12/21/2024 Internet Access Answer Date Recorded Internet Access [...] Sign Reading Time Taken Comments Blood Pressure 123/69 02/06/2025 10:04 AM EDT Pulse 61 02/06/2025 10:04 AM EDT Temperature 36.6 C (97.8 F) 02/06/2025 10:04 AM EDT Respiratory Rate 20 02/06/2025 10:04 AM EDT Oxygen Saturation 96% 02/06/2025 10:04 AM EDT Inhaled Oxygen Concentration - - Weight 70.3 kg (155 lb) 02/06/2025 10:04 AM EDT Height 154.9 cm (5' 1 ) 02/06/2025 10:04 AM EDT Body Mass Index 29.29 02/06/2025 10:04 AM EDT documented in this encounter Progress Notes * Gopi Molina MD - 02/06/2025 10:00 AM EDT SUBJECTIVE Erica Larios is a 69 y.o. female who presents for No chief complaint on file.. HPI One year h/o skin lesions of the upper limbs and lower limbs. Pt has been on Betamethasone cream w/o improvement. 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 Problem List[1] Allergies[2] Medications Ordered Prior to Encounter[3] Review of Systems Constitutional: Negative for appetite change, chills and diaphoresis. Respiratory: Negative for cough, choking and shortness of breath. Genitourinary: Negative for decreased urine volume, vaginal bleeding and vaginal discharge. Musculoskeletal: Negative for gait problem and joint swelling. Skin: Positive for pallor. OBJECTIVE Vitals: 02/06/25 1004 BP: 123/69 BP Location: Left arm Patient Position: Sitting BP Cuff Size: Adult Pulse: 61 Resp: 20 Temp: 97.8 ??F (36.6 ??C) TempSrc: Oral SpO2: 96% Weight: 155 lb (70.3 kg) Height: 5' 1 (1.549 m) Physical Exam Constitutional: General: She is not in acute distress. Appearance: Normal appearance. She is not ill-appearing, toxic-appearing or diaphoretic. Pulmonary: Effort: Pulmonary effort is normal. Skin: Comments: Multiple erythematous papulonodular lesions of the lower limbs. Some similar lesions are noted on the upper limbs. Neurological: Mental Status: She is alert. Assessment/Plan Assessment/Plan Diagnoses and all orders for this visit: Interface dermatitis, lichenoid type Comments: The differential diagnosis was discussed. Labs ordered. Further management after. I will consider a referral to Derm to consider further treatment Orders: - CBC auto differential; Future - Sed Rate by Modified Westergren; Future - Urinalysis, Complete, with Reflex to Culture; Future - LAM Screen,IFA, with Reflex to Titer and Pattern; Future - C-reactive Protein; Future Acquired hypothyroidism - CBC auto differential; Future [1] Patient Active Problem List Diagnosis Chronic pain of left knee Screening for colon cancer Screening for cervical cancer Chronic fatigue Primary hypertension Anxiety Chronic pain syndrome Fibromyalgia Acquired hypothyroidism Mixed hyperlipidemia [2] No Known Allergies [3] Current Outpatient Medications on File Prior to Visit Medication Sig Dispense Refill atorvastatin (Lipitor) 40 MG tablet Take 1 tablet (40 mg) by mouth Once per day. 90 tablet 3 betamethasone valerate (Valisone) 0.1 % cream Apply topically if needed in the morning and at bedtime (dryness). 45 g 2 Blood Pressure kit 1 kit in the morning. 1 kit 0 capsaicin (Zostrix) 0.025 % cream APPLY TOPICALLY TO THE AFFECTED AREA TWICE DAILY 180 g 0 celecoxib (CeleBREX) 100 MG capsule TAKE 1 CAPSULE(100 MG) BY MOUTH TWICE DAILY 60 capsule 0 cetirizine (ZyrTEC) 10 MG tablet TAKE 1 TABLET BY MOUTH EVERY MORNING 30 tablet 11 Diclofenac Sodium (Voltaren Arthritis Pain) 1 % gel Apply 2 g topically 3 times daily. 150 g 0 hydrOXYzine HCl (Atarax) 25 MG tablet Take 1 tablet (25 mg) by mouth if needed in the morning, at noon, and at bedtime for anxiety. 90 tablet 3 levothyroxine (Synthroid, Levoxyl) 100 MCG tablet TAKE 1 TABLET(100 MCG) BY MOUTH BEFORE BREAKFAST 90 tablet 0 losartan (Cozaar) 100 MG tablet Take 1 tablet (100 mg) by mouth Once per day. 90 tablet 3 traMADol (Ultram) 50 MG tablet Take 1 tablet (50 mg) by mouth every 12 (twelve) hours if needed forsevere pain. 56 tablet 0 triamcinolone (Kenalog) 0.1 % cream Apply topically if needed in the morning and at bedtime (pain and swelling). 80 g 2 No current facility-administered medications on file prior to visit. documented in this encounter Plan of Treatment Scheduled Orders Name Type Priority Associated Diagnoses Orde r Schedule CBC auto differential Lab Routine Interface dermatitis, lichenoid type Acquired hypothyroidism Expected: 02/06/2025 (Approximate), Expires: 02/06/2026 Sed Rate by Modified Westergren Lab Routine Interface dermatitis, lichenoid type Expected: 02/06/2025, Expires: 02/06/2026 Urinalysis, Complete, with Reflex to Culture Lab Routine Interface dermatitis, lichenoid type Expected: 02/06/2025 (Approximate), Expires: 02/06/2026 LAM Screen,IFA, with Reflex to Titer and Pattern Lab Routine Interface dermatitis, lichenoid type Expected: 02/06/2025 (Approximate), Expires: 02/06/2026 C-reactive Protein Lab Routine Interface dermatitis, lichenoid type Expected: 02/06/2025 (Approximate), Expires: 02/06/2026 documented as of this encounter Visit Diagnoses Diagnosis Interface dermatitis, lichenoid type- Primary Contact dermatitis and other eczema, due to unspecified cause Acquired hypothyroidism Unspecified hypothyroidism documented in this encounter Additional Health Concerns Assessment Noted Time PHQ-9 Depression Total Score: 0 12/22/19 25 9:06 AM EDT documented as of this encounter Care Teams Staff Interpreter Relationship Specialty Start Date End Date OnofreLeón Zhu MD [address] [place] [address] PCP - General Internal Medicine 10/02/19 documented as of this encounter
--- OUTSIDE RECORDS SUMMARY | 2025-02-06 13:56 | XMS_ITS | Encounter Summary ---
Author Organization [employer] Address [address] [address] Care Team Providers Care Day Trader Name Role Phone León Ly MD Primary Care Prov ider Reason for Visit * Reason Onset Date Comments Med Refill 05/16/2024 Encounter Details Date Type Department Care Team ([facility] st Contact Info) Description 05/16/2024 Telephone [facility] MEDICINE [address] [place] [address] León Ly MD [address] [place] [address] Med Refill Social History Tobacco Use Types [...] 11:05 AM EST Medication was sent to [facility] #[id number] on 05/15/24 #90 with 1 refill. * Telephone Encounter - Suha Harris - 05/16/2024 11:04 AM EST TC from pt requesting medication refill. Medications needing refill : levothyroxine (Synthroid, Levoxyl) 100 MCG tablet To be sent to: [facility] #[id number] documented in this encounter Plan of Treatment Not on file documented as of this encounter Visit Diagnoses Not on filedocumented in this encounter Additional Health Concerns Assessment Noted Time PHQ-9 Depression Total Score: 2 01/14/20 23 9:33 AM EDT documented as of this encounter Care Teams Day Trader Relationship Specialty Start Date End Date León Ly MD [address] [place] [address] PCP - General Internal Medicine 10/02/19 documented as of this encounter
--- OUTSIDE RECORDS SUMMARY | 2025-02-06 13:56 | XMS_ITS | Encounter Summary ---
Author Organization [employer] Address 75 [facility] 7 [place] [address] Care Team Providers Care Supply Chain Engineer Name Role Phone León Ly MD Primary Care Prov ider Encounter Details Date Type Department Care Team ([facility] st Contact Info) Description 05/28/2023 Orders Only [facility] CHC MED & PEDS [address] [place], [place] [phone] León Ly MD [address] [place] [address] Social History Tobacco Use Types Packs/Day Years [...] the past 12 months, has t he [employer] gas, oil or water company threatened to [...] as of this encounter Plan of Treatment Not on file documented as of this encounter Visit Diagnoses Not on filedocumented in this encounter Additional Health Concerns Assessment Noted Time PHQ-9 Depression Total Score: 2 01/14/20 23 9:33 AM EDT documented as of this encounter Care Teams Supply Chain Engineer Relationship Specialty Start Date End Date León Ly MD [address] [place] [address] PCP - General Internal Medicine 10/02/19 documented as of this encounter
--- OUTSIDE RECORDS SUMMARY | 2025-02-06 13:57 | XMS_ITS | Encounter Summary ---
Author Organization [employer] Address [address] [place] [address] Care Team Providers Care Plastics Spreading Machine Operator Name Role Phone León Ly MD Primary Care Prov ider Encounter Details Date Type Department Care Team (Late st Contact Info) Description 10/30/2024 Orders Only [facility] [address] [place] [address] Provider, MD Noemi Social History Tobacco Use Types Packs/Day Years [...] on file documented as of this encounter Procedures Procedure Name Priority Date/Time Associated Diagnosis Comments DERMATOPATHOLOGY REPORT Routine 10/24/2024 9:16 AM EDT documented in this encounter Results * Dermatopathology Report (10/24/2024 9:16 AM EDT) us Historical Provider LAB BLOOD ORDERABLES Ania l Result documented in this encounter Visit Diagnoses Not on filedocumented in this encounter Additional Health Concerns Assessment Noted Time PHQ-9 Depression Total Score: 12 025 8:53 AM EST documented as of this encounter Care Teams Plastics Spreading Machine Operator Relationship Specialty Start Date End Date León Ly MD [address] [place] [phone] PCP - General Internal Medicine 10/02/19 documented as of this encounter
--- OUTSIDE RECORDS SUMMARY | 2025-02-06 13:57 | XMS_ITS | Encounter Summary ---
Author Organization [employer] Address [address] [facility] [address] 7[address] [place] [address] Care Team Providers Care Saw Edge Fuser Circular Name Role Phone León Ly MD Primary Care Prov ider Encounter Details Date Type Department Care Team (Latest Contact Info) Description 02/06/2025 Travel Social History Tobacco Use Types Packs/Day [...] documented as of this encounter Care Teams Saw Edge Fuser Circular Relationship Specialty Start Date End Date León Ly MD [address] [place] [address] PCP - General Internal Medicine 10/02/19 documented as of this encounter
--- OUTSIDE RECORDS SUMMARY | 2025-02-06 13:57 | XMS_ITS | Encounter Summary ---
Author Organization [employer] Address [address] [address] Care Team Providers Care Industrial Truck Operator Name Role Phone León Ly MD Primary Care Prov ider Reason for Visit * Reason Onset Date Comments Med Refill 02/17/2024 Encounter Details Date Type Department Care Team ([facility] st Contact Info) Description 02/17/2024 Telephone [facility] MEDICINE [address] [place] [address] León Ly MD [address] [place] [address] Med Refill Social History Tobacco Use Types [...] 50 MG tablet To be sent to: [facility] #[id number] [place], [place] - [address] [place] [address] [address] [facility] documented in this encounter Plan of Treatment Not on file documented as of this encounter Visit Diagnoses Not on filedocumented in this encounter Additional Health Concerns Assessment Noted Time PHQ-9 Depression Total Score: 2 01/14/20 23 9:33 AM EDT documented as of this encounter Care Teams Industrial Truck Operator Relationship Specialty Start Date End Date León Ly MD [address] [place] [id number] PCP - General Internal Medicine 10/02/19 documented as of this encounter
--- OUTSIDE RECORDS SUMMARY | 2025-02-06 13:57 | XMS_ITS | Encounter Summary ---
Author Organization [employer] Address [address] [address] Care Team Providers Care Registered Dietician Name Role Phone León Ly MD Primary Care Prov ider Reason for Visit * Reason Comments Med Refill Encounter Details Date Type Department Care Team ([facility] Contact Info) Description 09/29/2023 Refill [facility] CHC MED & PEDS [address] [place], [place] [phone] León Ly MD [address] [place] [address] Chronic pain syndrome Social History Tobacco Use [...] documented as of this encounter Care Teams Registered Dietician Relationship Specialty Start Date End Date León Ly MD [address] [place] [address] PCP - General Internal Medicine 10/02/19 documented as of this encounter
--- OUTSIDE RECORDS SUMMARY | 2025-02-06 13:57 | XMS_ITS | Clinical Summary ---
Author Organization [employer] Address 75 [facility] 7 [place] [address] Care Team Providers Care Lead Laying And Gluing Machine Operator Name Role Phone León Ly MD Primary Care Prov ider Allergies No known active allergies Medications * This document contains information received from the source organization and may not represent a complete record from that organization. Diclofenac Sodium (Voltaren Arthritis Pain) 1 % gel Apply 2 g topically 3 times daily. 150 g 3 Active celecoxib (CeleBREX) 100 MG capsuleIndications :Chronic pain of left knee TAKE 1 CAPSULE(100 MG) BY MOUTH TWICE DAILY 60 capsule 3 Active Blood Pressure kit 1 kit in the morning. 1 kit 3 Active atorvastatin (Lipitor) 40 MG tabletIndications: Mixed hyperlipidemia Take 1 tablet (40 mg) by mouth Once per day. 90 tablet 3 4 02/16/20 25 Active capsaicin (Zostrix) 0.025 % creamIndications:C hronic pain of left knee APPLY TOPICALLY TO THE AFFECTED AREA TWICE DAILY 180 g 4 Active traMADol (Ultram) 50 MG tabletIndications: Chronic pain syndrome Take 1 tablet (50 mg) by mouth every 12 (twelve) hours if needed for severe pain. 56 tablet 4 Active triamcinolone (Kenalog) 0.1 % creamIndications:P ruritus,Skin rash Apply topically if needed in the morning and at bedtime (pain and swelling). 80 g 2 5 Active cetirizine (ZyrTEC) 10 MG tabletIndications: Pruritus,Skin rash TAKE 1 TABLET BY MOUTH EVERY MORNING 30 tablet 11 5 Active levothyroxine (Synthroid, Levoxyl) 100 MCG tabletIndications: Acquired hypothyroidism TAKE 1 TABLET(100 MCG) BY MOUTH BEFORE BREAKFAST 90 tablet 5 Active losartan (Cozaar) 100 MG tablet Take 1 tablet (100 mg) by mouth Once per day. 90 tablet 3 5 12/22/19 26 Active hydrOXYzine HCl (Atarax) 25 MG tabletIndications: Anxiety Take 1 tablet (25 mg) by mouth if needed in the morning, at noon, and at bedtime for anxiety. 90 tablet 3 5 04/20/20 25 Active betamethasone valerate (Valisone) 0.1 % creamIndications:I nterface dermatitis, lichenoid type Apply topically if needed in the morning and at bedtime (dryness). 45 g 2 5 Active Active Problems Problem Noted Date Diagnosed Date Mixed hyperlipidemia 03/15/2024 Assessment & Plan (12/21/2024 9:32 AM EDT): On atorvastatin, continue low cholesterol diet, will follow up in next visit Assessment & Plan (10/03/2024 11:10 AM EDT): On atorvastatin, no side effects reported, continue current therapy, follow up in 3 months Assessment & Plan (03/15/2024 12:30 AM EDT): [...] Will continue tramadol as prescribed by her studio producer for chronic pain Fibromyalgia 05/10/2023 Acquired hypothyroidism 05/10/2023 Assessment & Plan (10/03/2024 11:08 AM EDT): Clinically euthyroid, continue current dose, follow up in 3 months Assessment & Plan (06/21/2024 9:27 AM EST): [...] months Primary hypertension 04/01/2023 Assessment & Plan (12/21/2024 9:32 AM EDT): Uncontrolled, will increase losartan to 100mg, continue low sodium diet and exercise as tolerated, keep bp log, target <140/90 Assessment & Plan (10/03/2024 11:06 AM EDT): Controlled, keep low sodium diet and exercise as tolerated, keep bp log, target <140/90, follow up in 3-4 months Assessment & Plan (07/21/2024 10:30 AM EST): [...] Plan (02/12/2023 1:43 PM EDT): Pending PT, rodolfoule on 2 weeks, will follow after completing [...] 11:57 AM EDT): Refused pap smear Encounters Date Type Department Care Team Description 02/06/2025 10:00 AM EDT Office Visit [facility] MED & PEDS [address] [place] [address] Gopi Molina MD Interface dermatitis, lichenoid type (Primary Dx); Acquired hypothyroidism 02/06/2025 Travel 12/21/2024 9:00 AM EDT Telemedicine [facility] MED & PEDS [address] [place] [address] León Ly MD Primary hypertension (Primary Dx); Anxiety; Interface dermatitis, lichenoid type; Mixed hyperlipidemia 12/21/2024 Travel 12/20/2024 Telephone [facility] CHC MED & PEDS [address] [place] [address] León Ly MD chart prep 12/13/2024 Refill [facility] MED & PEDS [address] [place] [address] León Ly MD Acquired hypothyroidism 11/13/2024 Refill [facility] MED & PEDS [address] [place] [address] León Ly MD Acquired hypothyroidism 11/08/2024 Telephone [facility] MED & PEDS [address] [place] [address] Gopi Molina MD Results 11/07/2024 Orders Only [facility] CHC MED & PEDS [address] [place] [address] Gopi Molina MD Interface dermatitis, lichenoid type (Primary Dx) from Last 3 Months Immunizations Immunization Administration Dates Next Due Influenza injectable quadriv [...] housing situation today? I have homejackson rosen 06/21/[address] you [...] Mass Index 29.29 02/06/2025 10:04 AM EDT Plan of Treatment Health Maintenance Due Date Last Done Comments CT Colonography 1955 Colonoscopy 1955 Dental Prophylaxis 1955 FIT 1955 Sigmoidoscopy 1955 Dental X-Ray: Bitewings 09/14/2013 09/13/2012 Zoster Vaccines (2 of 3) 06/07/2017 04/12/2017 DTaP/Tdap/Td Vaccines (2 - Td or Tdap) 07/05/2023 07/05/2013, 01/10/2003 Dental Oral Exam 10/14/2023 04/14/2023, 09/13/2012 FOBT 02/10/2024 02/09/2023 Tobacco Screening 12/06/2024 12/07/2023 COVID-19 Vaccine ( - season) 2025 05/06/2021, 10/08/2020, 09/10/2020 Influenza Vaccine (#1) 2025 3, 02/12/2022, 02/12/2021, Additional history exists Alcohol/Substance Use Screening 06/21/2025 06/21/2024 SDOH Screening 06/21/2025 06/21/2024 Mammogram 09/28/2025 09/29/2023, 05/0 09/2022, 11/06/2020, Additional history exists Depression Screening 12/21/2025 12/21/2024, 12/22/19 Colorectal Cancer Screening 02/09/2026 FIT DNA/Cologuard 02/09/2026 02/09/2023 Dental X-Ray: Full Mouth 04/15/2026 04/14/2023, 08/23 Lipid Panel 07/03/2029 07/03/2024, 11/21, 08/25/2023, Additional history exists RSV Patients and [...] patient's age to complete this topic Meningococcal B Vaccine Aged Out No l onger eligible based on patient's age to complete [...] Procedure Name Priority Date/Time Associated Diagnosis Comments LIPID PANEL, STANDARD Routine 07/03/2024 9:52 AM EST Primary hypertension BI MAMMOGRAM SCREENING TOMOSYNTHESIS BILATERAL Routine 09/29/2023 10:35 AM EDT PANORAMIC RADIOGRAPHIC IMAGE Routine 04/14/2023 10:00 AM EST PERIODIC ORAL EVALUATION - ESTABLISHED PATIENT Routine 04/14/2023 10:00 AM EST LAB COLOGUARD COLON CANCER SCREEN Routine 02/09/2023 11:00 AM EDT Screening for colon cancer [facility] HISTORICAL HEPATITIS C AB W/REFL TO HCV RNA, QN, PCR Routine 11/17/2021 9:25 AM EDT INTRAORAL - COMPLETE SERIES OF RADIOGRAPHIC IMAGES Routine 09/13/2012 12:00 AM EDT from Last 3 Months or Most Recently Relevant to Health Maintenance Results * (ABNORMAL) Lipid Panel, Standard (07/03/2024 9:52 AM EST) Triglycerides 154(H) <150 mg/dL [facility] Comment:Desirable Triglyceri de: less than 150 mg/dLBorderline High Triglyceride 150-199 mg/dLHigh Triglyceride: 200-499 mg/dLVery High Triglyceride: greater than or equal to 5OO mg/dL Cholesterol 150 <200 mg/dL [facility] Comment:Desirable Cholestero l: less than 200 mg/dLBorderline High Cholesterol: 200-239 mg/dLHigh Cholesterol: greater than 239 mg/dL LDL Cholesterol Calculated 80 <100 mg/dL [facility] Comment:Desirable LDL: less than 100 mg/dLNear Optimal/Above Optimal LDL: 110- 129 mg/dLBorderline High LDL: 130-159 mg/dLHigh LDL: 160-189 mg/dLVery High LDL: greater than or equal to 190 mg/dL HDL Cholesterol 40(L) >40 mg/dL [facility] Comment:Desirable HDL: great er than 40 mg/dL Note: This HDL assay may give artificially low results in patients with liver disease. Blood Venous blood specimen / Unknown 07/03/2024 9:52 AM EST 07/03/2024 1:59 PM EST us León Krause MD LAB BLOOD ORDERABL ES Final Result [facility] [address] [place] [phone] * BI Mammogram Screening Tomosynthesis Bilateral (09/29/2023 10:35 AM EDT) Anatomical Region Laterality Modality Breast Bilateral Mammography 09/29/2023 10:3 5 AM EDT Narrative 10/29/2023 8:11 AM EDT [facility] [address] [place] [address] Mammography Report Signed Patient: Erica Larios MR#: [id number] : 1955 Acct:[id number] Age/Sex: 68 / F ADM Date: 09/29/23 Loc: HO.MAMMO Attending Dr: León Krause MD Ordering Physician: León Ly MD Res ults: 1Negative Date of Service: 09/29/23 Follow Up: 1 Year From Orig ina Mammogram Procedure(s): MM tomosynthesis screening BI Accession Number(s): [id number] cc: León Ly MD EXAMINATION: MM SCREENING [...] in OV> 10/29/23 0807 DD/ 1035 TD/TT: Equipment Service Lead: Procedure Note Donotuseinterpreter, Image - 10/29/2023 [facility] [address] [place], [place] [address] Mammography Report Signed Patient: Olivia Larios#: [id number] : 7Acct:[id number] Age/Sex: 68 / FADM Date: 09/29/23 Loc: HO.MAMMO Attending Dr: León Krause MD Ordering Physician: León Ly ults: 1Negative Date of Service: 09/29/23Follow Up: 1 Year From Orig ina Mammogram Procedure(s): MM tomosynthesis screening BI Accession Number(s): [id number] cc: León Ly MD EXAMINATION: MM SCREENING [...] in OV> 10/29/23 0807 DD/ 1035 TD/TT: Equipment Service Lead: León Krause MD IMG BI PROCEDURES Edited Result - Final * Cologuard?? colon cancer screening (02/09/2023 11:00 AM EDT) Cologuard Result Negative Negative 02/15/20 8:32 AM EDT [facility] (CLIA #:[id number]) Comment: NEGATIVE TEST RESULT. A negative Cologuard result indicates a low likelihood that a colorectal cancer (CRC) or advanced adenoma (adenomatous polyps with more advanced pre-malignant features) is present. The chance that a person with a negative Cologuard test has a colorectal cancer is less than 1 in 1500 (negative predictive value >99.9%) or has an advanced adenoma is less than 5.3% (negative predictive value 94.7%). These data are based on a prospective cross-sectional study of 10,000 individuals at average risk for colorectal cancer who were screened with both Cologuard and colonoscopy. (Joey Bedolla et al, N Engl J Med 2014;370(14):7046-5933) The normal value (reference range) for this assay is negative. COLOGUARD RE-SCREENING RECOMMENDATION: Periodic colorectal cancer screening is an important part of preventive healthcare for asymptomatic individuals at average risk for colorectal cancer. Following a negative Cologuard result, the [place] Cancer Society and U.S. Multi-Society Task Force screening guidelines recommend a Cologuard re-screening interval of 3 years. References: [place] [employer] Guideline for Colorectal Cancer Screening: https://www.cancer.org/cancer/heieu-bhvbbv-xnlhjb/ndjfyykfr-gjkbpufxt-zyomfzy/ac s-rec ommendations.html.; Jose Angel GRIDER, Mansoor GARCÍA, Felicita MabryK, Colorectal Cancer Screening: Recommendations for Physicians and Patients from the U.S. Multi-Society Task Force on Colorectal Cancer Screening , Am J Gastroenterology 2017; 112:1038-8877. TEST DESCRIPTION: Composite algorithmic analysis of stool DNA-biomarkers with hemoglobin immunoassay. Quantitative values of individual biomarkers are not [...] (Joey Dasilva al, N Engl J Med 2014;370(14):7616-6722.) Cologuard may produce a false negative or false positive result (no colorectal cancer or precancerous polyp present at colonoscopy follow up). A negative Cologuard test result does not guarantee the absence of CRC or advanced adenoma (pre-cancer). The current Cologuard screening interval is every 3 years. ([place] [employer] Society and U.S. Multi-Society Task Force). Cologuard performance data in a 10,000 patient pivotal study using colonoscopy as the reference method can be accessed at the following location: www.[employer]/results. Additional description of the Cologuard test process, warnings and precautions can be found at www.[employer]Guerillapps. Stool specimen (specimen) 02/09/2023 11:00 AM EDT 02/10/2023 9:36 PM EDT León Krause MD LAB MOLECULAR DIAG NOSTICS ORDERABLES Final Result [facility] (CLIA #:[id number]) [address] [address], * HEPATITIS C AB W/REFL TO HCV RNA, QN, PCR (11/17/2021 9:25 AM EDT) HEPATITIS C ANTIBODY NON-REACT ENEIDA NON-REACT ENEIDA [facility] INDEX 0.04 <1.00 [facility] Comment: HCV antibody was non-reactive. There is no laboratory evidence of HCV infection. In most cases, no further action is required. However, if recent HCV exposure is suspected, a test for HCV RNA (test code 43922) is suggested. For additional information please refer to http://education.NetBeez.Guerillapps/faq/JSY51s6 (This link is being provided for informational/ educational purposes only.) 11/17/2021 9:25 AM EDT León Krause MD HISTORICAL/NON ORD ERABLE LABS Final Result [facility]where [address] from Last 3 Months or Most Recently Relevant to Health Maintenance Insurance MEDICARE [facility] STAND ADULT Care Teams Lead Laying And Gluing Machine Operator Relationship Specialty Start Date End Date León Ly MD [address] [place] [phone] PCP - General Internal Medicine 10/02/19
--- OUTSIDE RECORDS SUMMARY | 2025-02-06 13:57 | XMS_ITS | Encounter Summary ---
Author Organization [employer] Address 75 [facility] 7 [place] [address] Care Team Providers Care Drain Layer Name Role Phone León Ly MD Primary Care Prov ider Encounter Details Date Type Department Care Team (Late st Contact Info) Description 09/18/2024 Orders Only [facility] MEDICINE [address] [place] [address] León Ly MD [address] [place] [address] Social History Tobacco Use Types Packs/Day Years [...] Procedure Name Priority Date/Time Associated Diagnosis Comments BD DEXA AXIAL Routine 10/11/2024 8:30 AM EDT documented in this encounter Results * BD DEXA Axial (10/11/2024 8:30 AM EDT) Anatomical Region Laterality Modality Body Radiographic Jackie ging 10/11/2024 8:30 AM EDT Narrative 10/11/2024 9:30 AM EDT [facility]'s [address] [place] [address] Mammography Report Signed Patient: Erica Larios MR#: [id number] : 1955 Acct:[id number] Age/Sex: 69 / F ADM Date: 10/11/24 Loc: MAMMO Attending Dr: Renetta Arzate MD Ordering Physician: Renetta Arzate MD Results: Date of Service: 10/11/24 Follow Up: Procedure(s): XR DEXA axial skeleton Accession Number(s): [id number] cc: Renetta Arzate MD; León Ly MD EXAMINATION: DXA BONE DENSITY AXIAL HISTORY: M81.0 - Age-related osteoporosis without current pathological fracture TECHNIQUE: [employer] Dual energy absorptiometry (DEXA) of the lumbar spine, total left hip, and femoral neck was performed. COMPARISON: Comparison is made with the prior examination dated 09/15/2022. FINDINGS: The bone mineral density of the lumbar spine is 1.024 with a T-score of -1.3, and a Z-score of 0.3. This is indicative of osteopenia. This represents a BMD change of -2.8% compared to the prior exam. This is statistically significant. The bone mineral density of the left total hip is 0.781 with a T-score of -1.8, and a Z-score of -0.5. This is indicative of osteopenia. This represents a BMD change of -3.6% compared to the prior exam. This is not statistically significant. The bone mineral density of the left femoral neck is 0.836 with a T-score of -1.5, and a Z-score of 0.1. This is indicative of osteopenia. This represents a BMD change of -2.3% compared to the prior exam. FRACTURE RISK: The FRAX index suggests a ten year probability of major osteoporotic fracture of 5.2%, and of hip fracture 0.6%. MM/XR DEXA axial skeleton IMPRESSION: Based on bone mineral density, and according to World Health Organization (WHO) criteria, the diagnosis is consistent with osteopenia. All bone density values are in grams per centimeter squared (g/cm2). Statistically, 68% of repeat scans fall within 1 SD (+/- 0.010 g/cm2 for AP spine L1-L4) and 1 SD (+/- 0.012 g/cm2 for femur total) FRAX is a trademark of the [employer] [place] [facility] Metabolic Bone Disease, a World Health Organization (WHO) Collaborating Center. Electronically signed by: Alex Portillo MD 10/11/2024 09:27 AM EDT Dictated By: Alex Portillo MD Signed By: <Electronically signed by Alex Portillo MD in OV> 10/11/24926 DD/ 08 TD/TT: 10/11/24 09 Briquette Maker: Procedure Note Donotuseinterpreter, Image - 10/11/2024 [facility] [facility] [address] [place] [address] Mammography Report Signed Patient: Olivia Larios#: [id number] : 7Acct:[id number] Age/Sex: 69 / FADM Date: 10/11/24 Loc: ALFONSO Attending Dr: Renetta Arzate MD Ordering Physician: Renetta Arzateults: Date of Service: 10/11/24Follow Up: Procedure(s): XR DEXA axial skeleton Accession Number(s): [id number] cc: Renetta Arzate MD; León Ly MD EXAMINATION: DXA BONE DENSITY AXIAL HISTORY: M81.0 - Age-related osteoporosis without current pathological fracture TECHNIQUE: [employer] Dual energy absorptiometry (DEXA) of the lumbar spine, total left hip, and femoral neck was performed. COMPARISON: Comparison is made with the prior examination dated 09/15/2022. FINDINGS: The bone mineral density of the lumbar spine is 1.024 with a T-score of -1.3, and a Z-score of 0.3. This is indicative of osteopenia. This represents a BMD change of -2.8% compared to the prior exam. This is statistically significant. The bone mineral density of the left total hip is 0.781 with a T-score of -1.8, and a Z-score of -0.5. This is indicative of osteopenia. This represents a BMD change of -3.6% compared to the prior exam. This is not statistically significant. The bone mineral density of the left femoral neck is 0.836 with a T-score of -1.5, and a Z-score of 0.1. This is indicative of osteopenia. This represents a BMD change of -2.3% compared to the prior exam. FRACTURE RISK: The FRAX index suggests a ten year probability of major osteoporotic fracture of 5.2%, and of hip fracture 0.6%. MM/XR DEXA axial skeleton IMPRESSION: Based on bone mineral density, and according to World Health Organization (WHO) criteria, the diagnosis is consistent with osteopenia. All bone density values are in grams per centimeter squared (g/cm2). Statistically, 68% of repeat scans fall within 1 SD (+/- 0.010 g/cm2 for AP spine L1-L4) and 1 SD (+/- 0.012 g/cm2 for femur total) FRAX is a trademark of the [employer] [place] [employer] Metabolic Bone Disease, a World Health Organization (WHO) Collaborating Center. Electronically signed by: Alex Portillo MD 10/11/2024 09:27 AM EDT RP Dictated By: Alex Portillo MD Signed By: <Electronically signed by Alex Portillo MD in OV> 10/11/24926 DD/ 0830 TD/TT: 10/11/24 0900 Briquette Maker: [facility] External Provider IMG DXA PROCEDURES Final Result documented in this encounter Visit Diagnoses Not on filedocumented in this encounter Additional Health Concerns Assessment Noted Time PHQ-9 Depression Total Score: 12 025 8:53 AM EST documented as of this encounter Care Teams Drain Layer Relationship Specialty Start Date End Date León Ly MD [address] [place] [phone] PCP - General Internal Medicine 10/02/19 documented as of this encounter
--- OUTSIDE RECORDS SUMMARY | 2025-02-06 13:57 | XMS_ITS | Encounter Summary ---
Author Organization [email or web address] Address [address] [address] Care Team Providers Care Blue Leather Setter Name Role Phone León Ly MD Primary Care Prov ider Reason for Visit * Reason Onset Date Comments Medication Question 05/13/2023 Encounter Details Date Type Department Care Team ([facility] Contact Info) Description 05/13/2023 Telephone [facility] MEDICINE [address] [place] [address] León Ly MD [address] [place] [address] Medication Question Social History Tobacco Use Types [...] documented as of this encounter Care Teams Blue Leather Setter Relationship Specialty Start Date End Date León Ly MD [address] [place] [address] PCP - General Internal Medicine 10/02/19 documented as of this encounter
--- OUTSIDE RECORDS SUMMARY | 2025-02-06 13:57 | XMS_ITS | Encounter Summary ---
Author Organization [employer] Address [address] [address] Care Team Providers Care Liability Claims Examiner Name Role Phone León Ly MD Primary Care Prov ider Reason for Visit * Reason Comments Med Refill Encounter Details Date Type Department Care Team ([facility] Contact Info) Description 12/04/2023 Refill [facility] CHC MED & PEDS [address] [place], [place] [phone] León Ly MD [address] [place] [address] Fibromyalgia Social History Tobacco Use Types Packs/Day [...] documented as of this encounter Care Teams Liability Claims Examiner Relationship Specialty Start Date End Date León Ly MD [address] [place] [phone] PCP - General Internal Medicine 10/02/19 documented as of this encounter
--- OUTSIDE RECORDS SUMMARY | 2025-02-06 13:57 | XMS_ITS | Encounter Summary ---
Author Organization [employer] Address 75 [facility] 7 [place] [address] Care Team Providers Care Shop Service Technician Name Role Phone León Ly MD Primary Care Prov ider Encounter Details Date Type Department Care Team ([facility] st Contact Info) Description 11/07/2024 Orders Only [facility] MED & PEDS [address] [place], [place] [phone] Gopi Molina MD [address] [place] [address] Interface dermatitis, lichenoid type (Primary Dx) Social History Tobacco Use Types Packs/Day Years [...] and other eczema, due to unspecified cause documented in this encounter Additional Health Concerns Assessment Noted Time PHQ-9 Depression Total Score: 12 025 8:53 AM EST documented as of this encounter Care Teams Shop Service Technician Relationship Specialty Start Date End Date León Ly MD [address] [place] [phone] PCP - General Internal Medicine 10/02/19 documented as of this encounter
--- OUTSIDE RECORDS SUMMARY | 2025-02-06 13:57 | XMS_ITS | Encounter Summary ---
Author Organization [employer] Address [address] [address] Care Team Providers Care Imaging Clerk Name Role Phone León Ly MD Primary Care Prov ider Reason for Visit * Reason Onset Date Comments Med Refill 04/18/2024 Encounter Details Date Type Department Care Team ([facility] st Contact Info) Description 04/18/2024 Telephone [facility] MEDICINE [address] [place] [address] León Ly MD [address] [place] [address] Med Refill Social History Tobacco Use Types [...] 50 MG tablet To be sent to: [id number] - [place], [place] - [address] [place] [address] RD AT [facility] documented in this encounter Plan of Treatment Not on file documented as of this encounter Visit Diagnoses Not on filedocumented in this encounter Additional Health Concerns Assessment Noted Time PHQ-9 Depression Total Score: 2 01/14/20 23 9:33 AM EDT documented as of this encounter Care Teams Imaging Clerk Relationship Specialty Start Date End Date León Ly MD [address] [place] [phone] PCP - General Internal Medicine 10/02/19 documented as of this encounter
--- OUTSIDE RECORDS SUMMARY | 2025-02-06 13:57 | XMS_ITS | Encounter Summary ---
Author Organization [email or web address] Address [address] [address] Care Team Providers Care Peoplesoft Financial Developer Name Role Phone León Ly MD Primary Care Prov ider Reason for Visit * Reason Comments Med Refill Encounter Details Date Type Department Care Team ([facility] Contact Info) Description 03/09/2024 Refill [facility] CHC MED & PEDS 505 [place], [place] [phone] León Ly MD 505 [place] [address] Social History Tobacco Use Types Packs/Day Years [...] documented as of this encounter Care Teams Peoplesoft Financial Developer Relationship Specialty Start Date End Date León Ly MD [address] [place] [address] PCP - General Internal Medicine 10/02/19 documented as of this encounter
--- OUTSIDE RECORDS SUMMARY | 2025-02-06 13:57 | XMS_ITS | Encounter Summary ---
Author Organization [employer] Address [address] [address] Care Team Providers Care Powdered Metal Supervisor Name Role Phone León Ly MD Primary Care Prov ider Reason for Visit * Reason Comments Med Refill Encounter Details Date Type Department Care Team ([facility] Contact Info) Description 09/07/2023 Refill [facility] CHC MED & PEDS 505 [place], [place] [phone] León Ly MD 505 [place] [address] Acquired hypothyroidism Social History Tobacco Use Types [...] documented as of this encounter Care Teams Powdered Metal Supervisor Relationship Specialty Start Date End Date León Ly MD [address] [place] [address] PCP - General Internal Medicine 10/02/19 documented as of this encounter
--- OUTSIDE RECORDS SUMMARY | 2025-02-06 13:57 | XMS_ITS | Encounter Summary ---
Author Organization [employer] Address [address] [place] [address] Care Team Providers Care Warehouse Manager Name Role Phone León Ly MD Primary Care Prov ider Reason for Visit * Reason Comments Med Refill Encounter Details Date Type Department Care Team ([facility] st Contact Info) Description 07/20/2022 Refill C CHC MED & PEDS 505 [place] [address] León Ly MD 505 [place] [address] Social History Tobacco Use Types Packs/Day Years [...] on filedocumented in this encounter Care Teams Warehouse Manager Relationship Specialty Start Date End Date León Ly MD 505 [place] [address] PCP - General Internal Medicine 10/02/19 documented as of this encounter
--- OUTSIDE RECORDS SUMMARY | 2025-02-06 13:57 | XMS_ITS | Encounter Summary ---
Author Organization [employer] Address [address] [place] [address] Care Team Providers Care Social Services Director Name Role Phone León Ly MD Primary Care Prov ider Reason for Visit * Reason Comments Med Refill Encounter Details Date Type Department Care Team ([facility] st Contact Info) Description 01/17/2023 Refill [facility] CHC MED & PEDS 505 [place] [address] Gopi Molina MD 505 [place] [address] Chronic pain of left knee Social History [...] documented as of this encounter Care Teams Social Services Director Relationship Specialty Start Date End Date León Ly MD [address] [place] [address] PCP - General Internal Medicine 10/02/19 documented as of this encounter
--- OUTSIDE RECORDS SUMMARY | 2025-02-06 13:57 | XMS_ITS | Encounter Summary ---
Author Organization [employer] Address [address] [address] Care Team Providers Care Risk Control Representative Name Role Phone León Ly MD Primary Care Prov ider Reason for Visit * Reason Onset Date Comments Med Refill 05/27/2023 Encounter Details Date Type Department Care Team ([facility] st Contact Info) Description 05/27/2023 Telephone [facility] MEDICINE [address] [place] [address] León Ly MD 505 [place] [address] Med Refill Social History Tobacco Use Types [...] 50 MG tablet To be sent to: [facility] #[id number] AT [facility] Patient also stated has been taken [...] documented as of this encounter Care Teams Risk Control Representative Relationship Specialty Start Date End Date León Ly MD 505 [place] [address] PCP - General Internal Medicine 10/02/19 documented as of this encounter
[2025-02-06 14:09] LABS: MANUAL DIFF FLAG NO
[2025-02-06 14:35] LABS: Hematocrit 37.4 % (37.0-47.0); Hemoglobin 12.5 g/dl (12.0-16.0); Imm Gran Abs Auto 0.02 X10*3/uL (0.00-0.03); Imm Gran Pct Auto 0.3 % (0.0-0.4); Lymphocytes Absolute Auto 2.8 X10*3/uL (1.2-4.9); Mean Corpuscular HGB Conc 33.4 g/dl (31.0-35.0); Mean Corpuscular Hemoglobin 30.1 pg (27.0-33.0); Mean Corpuscular Volume 90.1 fL (80.0-98.0); NRBC Abs Auto 0.000 X10*3/uL (0.0-0.012); NRBC Pct Auto 0.0 /100WBC (0.0-0.2); Platelet Count 231 X10*3/uL (160-400); Red Blood Count 4.15 X10*6/uL (4.20-5.50); White Blood Count 7.4 X10*3/uL (4.8-10.8)
[2025-02-06 14:56] LABS: Appearance Urine Clear; Glucose Urine UA Negative (Negative); PH 5.5 (5.0-9.0); Specific Gravity - Urine 1.015 (1.005-1.025)
[2025-02-08 13:18] LABS: Anti Nuclear Antibody Screen NEGATIVE (NEGATIVE)
== END 2025-02-06 10:35 | disposition home or self-care (01) ==
LOC: HO.CHCLDS 10:34
PROVIDERS: Visit Provider Internal Medicine
DX: L30.8 Other specified dermatitis (principal); E03.9 Hypothyroidism, unspecified
CPT/HCPCS: 36415; 81001; 85025; 85652; 86038; 86140

== ENCOUNTER 2025-02-20 14:12 | Outpatient (REF) | payer MEDICARE, MEDICAID, SELFPAY ==
--- OUTSIDE RECORDS SUMMARY | 2025-02-20 13:00 | XMS_ITS | Encounter Summary ---
Author Organization [employer] Address 75 [facility] 7t [place] [address] Care Team Providers Care Slide Forming Machine Operator Name Role Phone León Ly MD Primary Care Prov ider Reason for Visit * Reason Comments Immunizations Encounter Details Date Type Department Care Team ([facility] st Contact Info) Description 02/20/2025 1:00 PM EDT Immunization [facility] CHC MED & PEDS [address] [place] [address] Aminata Wilson RN Encounter for immunization Social History Tobacco Use Types Packs/Day Years [...] AM EDT documented as of this encounter Progress Notes * Aminata Wilson RN - 02/20/2025 1:00 PM EDT S: Erica Bentley is here for Immunizations Preferred language for medical information: Upper Sorbian Erica Bentley denies feeling sick today. Upon review of the electronic health record there is no contraindication for receiving the Influenza vaccine today. Patient has no known allergies. O: Influenza 0.5ml, administered to right deltoid. Injection was tolerated well. No adverse reaction noted. A copy of the VIS informational sheet was provided and Erica Bentley was advised to wait 15 minutes post vaccination for monitoring of adverse reactions. Immunization History Administered Date(s) Administered Influenza injectable quadrivalent IIV4 with preservative 03/08/2015, 04/12/2017, 03/28/2019 Influenza injectable quadrivalent preservative free 03/03/2016, 08/03/2018, 02/20/2020, 02/12/2021,02/12/2022, 03/22/2023 Influenza, IIV3, injectable 03/20/2011, 03/02/2014 Influenza, Split (incl. purified surface antigen) 04/13/2012, 02/28/2013 Moderna Covid-19 Vaccine 12+ 09/10/2020, 10/08/2020, 05/06/2021 Pneumococcal Conjugate PCV 20 04/01/2023 TD (adult), 2 Lf tetanus toxoid, preservative free, adsorbed 01/10/2003 Tdap 07/05/2013 Zoster, live 04/12/2017 A: Encounter for Immunization P: Erica Bentley to follow up as needed. Aminata Wilson RN documented in this encounter Plan of Treatment Not on file documented as of this encounter Visit Diagnoses Diagnosis Encounter for immunization documented in this encounter Additional Health Concerns Assessment Noted Time PHQ-9 Depression Total Score: 0 12/22/19 25 9:06 AM EDT documented as of this encounter Care Teams Slide Forming Machine Operator Relationship Specialty Start Date End Date León Ly MD [address] [place] [address] PCP - General Internal Medicine 10/02/19 documented as of this encounter
--- OUTSIDE RECORDS SUMMARY | 2025-02-20 15:34 | XMS_ITS | Encounter Summary ---
Author Organization [employer] Address 75 [facility] 7 [place] [address] Care Team Providers Care Exceptional Children Teacher Assistant Name Role Phone León Ly MD Primary Care Prov ider Encounter Details Date Type Department Care Team ([facility] st Contact Info) Description 05/28/2023 Orders Only [facility] CHC MED & PEDS 505 [place], [place] [phone] León Ly MD 505 [place] [address] Social History Tobacco Use Types Packs/Day Years [...] the past 12 months, has t he [employer], gas, oil or water company threatened to [...] documented as of this encounter Care Teams Exceptional Children Teacher Assistant Relationship Specialty Start Date End Date Lenó Ly MD 505 [place] [address] PCP - General Internal Medicine 10/02/19 documented as of this encounter
--- OUTSIDE RECORDS SUMMARY | 2025-02-20 15:34 | XMS_ITS | Encounter Summary ---
Author Organization [employer] Address [address] [address] Care Team Providers Care Perfumer Name Role Phone León Ly MD Primary Care Prov ider Reason for Visit * Reason Comments Med Refill Encounter Details Date Type Department Care Team ([facility] Contact Info) Description 09/07/2023 Refill [facility] CHC MED & PEDS 505 [place], [place] [phone] León Ly MD 505 [place] [address] Acquired hypothyroidism Social History Tobacco Use Types [...] documented as of this encounter Care Teams Perfumer Relationship Specialty Start Date End Date León Ly MD [address] [place] [address] PCP - General Internal Medicine 10/02/19 documented as of this encounter
--- OUTSIDE RECORDS SUMMARY | 2025-02-20 15:34 | XMS_ITS | Encounter Summary ---
Author Organization [employer] Address [address] [address] Care Team Providers Care Car Hiker Name Role Phone León Ly MD Primary Care Prov ider Reason for Visit * Reason Onset Date Comments Med Refill 05/16/2024 Encounter Details Date Type Department Care Team ([facility] st Contact Info) Description 05/16/2024 Telephone [facility] MEDICINE 230 [place] [address] León Ly MD 505 [place] [address] Med Refill Social History Tobacco Use Types [...] 11:05 AM EST Medication was sent to [facility] #[id number] on 05/15/24 #90 with 1 refill. * Telephone Encounter - Suha Harris - 05/16/2024 11:04 AM EST TC from pt requesting medication refill. Medications needing refill : levothyroxine (Synthroid, Levoxyl) 100 MCG tablet To be sent to: [facility] #[id number] documented in this encounter Plan of Treatment Not on file documented as of this encounter Visit Diagnoses Not on filedocumented in this encounter Additional Health Concerns Assessment Noted Time PHQ-9 Depression Total Score: 2 01/14/20 23 9:33 AM EDT documented as of this encounter Care Teams Car Hiker Relationship Specialty Start Date End Date León Ly MD [address] [place] [address] PCP - General Internal Medicine 10/02/19 documented as of this encounter
--- OUTSIDE RECORDS SUMMARY | 2025-02-20 15:34 | XMS_ITS | Encounter Summary ---
Author Organization [employer] Address 75 [facility] 7 [place] [address] Care Team Providers Care Button Maker Name Role Phone León Ly MD Primary Care Prov ider Encounter Details Date Type Department Care Team ([facility] st Contact Info) Description 11/07/2024 Orders Only [facility] CHC MED & PEDS 505 [place], [place] [phone] Gopi Molina MD 505 [place] [address] Interface dermatitis, lichenoid type (Primary Dx) Social [...] documented as of this encounter Care Teams Button Maker Relationship Specialty Start Date End Date León Ly MD [address] [place] [address] PCP - General Internal Medicine 10/02/19 documented as of this encounter
--- OUTSIDE RECORDS SUMMARY | 2025-02-20 15:34 | XMS_ITS | Encounter Summary ---
Author Organization [employer] Address [address] [place] [address] Care Team Providers Care Fur Grader Name Role Phone León Ly MD Primary Care Prov ider Reason for Visit * Reason Comments Med Refill Encounter Details Date Type Department Care Team ([facility] Contact Info) Description 09/29/2023 Refill [facility] CHC MED & PEDS 505 [place], [place] [phone] León Ly MD 505 [place] [address] Chronic pain syndrome Social History Tobacco Use [...] documented as of this encounter Care Teams Fur Grader Relationship Specialty Start Date End Date León Ly MD [address] [place] [address] PCP - General Internal Medicine 10/02/19 documented as of this encounter
--- OUTSIDE RECORDS SUMMARY | 2025-02-20 15:35 | XMS_ITS | Encounter Summary ---
Author Organization [employer] Address [address] [facility] [address] 7t [place] [address] Care Team Providers Care Chalk Molding Machine Operator Name Role Phone León Ly MD Primary Care Prov ider Encounter Details Date Type Department Care Team (Latest Contact Info) Description 02/20/2025 Travel Social History Tobacco Use Types Packs/Day [...] documented as of this encounter Care Teams Chalk Molding Machine Operator Relationship Specialty Start Date End Date León Ly MD [address] [place] [address] PCP - General Internal Medicine 10/02/19 documented as of this encounter
--- OUTSIDE RECORDS SUMMARY | 2025-02-20 15:35 | XMS_ITS | Encounter Summary ---
Author Organization [employer] Address [address] [address] Care Team Providers Care Crm Architect Name Role Phone León Ly MD Primary Care Prov ider Reason for Visit * Reason Onset Date Comments Med Refill 02/17/2024 Encounter Details Date Type Department Care Team ([facility] st Contact Info) Description 02/17/2024 Telephone [facility] MEDICINE 230 [place] [address] León Ly MD 505 [place] [address] Med Refill Social History Tobacco Use Types [...] 50 MG tablet To be sent to: [facility] #[id number] [place], [place] - [address] [place] [address] RD AT [facility] documented in this encounter Plan of Treatment Not on file documented as of this encounter Visit Diagnoses Not on filedocumented in this encounter Additional Health Concerns Assessment Noted Time PHQ-9 Depression Total Score: 2 01/14/20 23 9:33 AM EDT documented as of this encounter Care Teams Crm Architect Relationship Specialty Start Date End Date León Ly MD [address] [place] [address] PCP - General Internal Medicine 10/02/19 documented as of this encounter
--- OUTSIDE RECORDS SUMMARY | 2025-02-20 15:35 | XMS_ITS | Encounter Summary ---
Author Organization [employer] Address [address] [address] Care Team Providers Care Airport Guide Name Role Phone León Ly MD Primary Care Prov ider Reason for Visit * Reason Onset Date Comments Med Refill 04/18/2024 Encounter Details Date Type Department Care Team ([facility] st Contact Info) Description 04/18/2024 Telephone [facility] MEDICINE 230 [place] [address] León Ly MD 505 [place] [address] Med Refill Social History Tobacco Use Types [...] 50 MG tablet To be sent to: [facility] #[id number] - [place], [place] - [address] [place] [address] RD AT [facility] documented in this encounter Plan of Treatment Not on file documented as of this encounter Visit Diagnoses Not on filedocumented in this encounter Additional Health Concerns Assessment Noted Time PHQ-9 Depression Total Score: 2 01/14/20 23 9:33 AM EDT documented as of this encounter Care Teams Airport Guide Relationship Specialty Start Date End Date León Ly MD [address] [place] [address] PCP - General Internal Medicine 10/02/19 documented as of this encounter
--- OUTSIDE RECORDS SUMMARY | 2025-02-20 15:35 | XMS_ITS | Encounter Summary ---
Author Organization [employer] Address [address] [place] [address] Care Team Providers Care Sports Broadcasting Internship Name Role Phone León Ly MD Primary Care Prov ider Reason for Visit * Reason Comments Med Refill Encounter Details Date Type Department Care Team ([facility] st Contact Info) Description 07/20/2022 Refill C CHC MED & PEDS 505 [place] [address] León Ly MD 505 [place] [address] Social History Tobacco Use Types Packs/Day Years [...] on filedocumented in this encounter Care Teams Sports Broadcasting Internship Relationship Specialty Start Date End Date León Ly MD 505 [place] [address] PCP - General Internal Medicine 10/02/19 documented as of this encounter
--- OUTSIDE RECORDS SUMMARY | 2025-02-20 15:35 | XMS_ITS | Encounter Summary ---
Author Organization [employer] Address [address] [place] [address] Care Team Providers Care Gas Prover Name Role Phone León Ly MD Primary Care Prov ider Reason for Visit * Reason Comments Med Refill Encounter Details Date Type Department Care Team ([facility] Contact Info) Description 12/04/2023 Refill [facility] CHC MED & PEDS 505 [place], [place] [phone] León Ly MD 505 [place] [address] Fibromyalgia Social History Tobacco Use Types Packs/Day [...] documented as of this encounter Care Teams Gas Prover Relationship Specialty Start Date End Date León Ly MD [address] [place] [address] PCP - General Internal Medicine 10/02/19 documented as of this encounter
--- OUTSIDE RECORDS SUMMARY | 2025-02-20 15:35 | XMS_ITS | Encounter Summary ---
Author Organization [employer] Address [address] [place] [address] Care Team Providers Care Tapping Machine Operator Automatic Name Role Phone León Ly MD Primary Care Prov ider Encounter Details Date Type Department Care Team (Late st Contact Info) Description 10/30/2024 Orders Only [facility] 230 [place] [address] Provider, MD Noemi Social History Tobacco Use [...] documented as of this encounter Care Teams Tapping Machine Operator Automatic Relationship Specialty Start Date End Date León Ly MD [address] [place] [address] PCP - General Internal Medicine 10/02/19 documented as of this encounter
--- OUTSIDE RECORDS SUMMARY | 2025-02-20 15:35 | XMS_ITS | Encounter Summary ---
Author Organization [employer] Address [address] [place] [address] Care Team Providers Care An Employee Sponsor Or Advocate And Name Role Phone León Ly MD Primary Care Prov ider Reason for Visit * Reason Comments Med Refill Encounter Details Date Type Department Care Team ([facility] st Contact Info) Description 01/17/2023 Refill [facility] CHC MED & PEDS 505 [place] [address] Gopi Molina MD 505 [place] [address] Chronic pain of left knee Social History [...] documented as of this encounter Care Teams An Employee Sponsor Or Advocate And Relationship Specialty Start Date End Date León Ly MD [address] [place] [address] PCP - General Internal Medicine 10/02/19 documented as of this encounter
--- OUTSIDE RECORDS SUMMARY | 2025-02-20 15:35 | XMS_ITS | Encounter Summary ---
Author Organization [employer] Address 75 [facility] 7 [place] [address] Care Team Providers Care Circuitry Negative Inspector Name Role Phone León Ly MD Primary Care Prov ider Encounter Details Date Type Department Care Team (Late st Contact Info) Description 09/18/2024 Orders Only [facility] MEDICINE 230 [place] [address] León Ly MD 505 [place] [address] Social History Tobacco Use Types Packs/Day Years [...] AM EDT Narrative 10/11/2024 9:30 AM EDT [facility] [address] [place] [address] Mammography Report Signed Patient: Erica Larios MR#: [id number] : 1955 Acct:[id number] Age/Sex: 69 / F ADM Date: 10/11/24 Loc: MAMMO Attending Dr: Renetta Arzate MD Ordering Physician: Renetta Arzate MD Results: Date of Service: 10/11/24 Follow Up: Procedure(s): XR DEXA axial skeleton Accession Number(s): [id number] cc: Renetta Arzate MD; León Ly MD EXAMINATION: DXA BONE DENSITY AXIAL HISTORY: M81.0 - Age-related osteoporosis without current pathological fracture TECHNIQUE: Find That File Dual energy absorptiometry (DEXA) of the lumbar [...] of the [employer] [place] for Metabolic Bone Disease, a World Health Organization (WHO) Collaborating Center. Electronically signed by: Alex Portillo MD 10/11/2024 09:27 AM EDT Dictated By: Alex Portillo MD Signed By: <Electronically signed by Alex Portillo MD in OV> 10/11/24926 DD/ 08 TD/TT: 10/11/24 09 Reinsurance Claim Analyst: Procedure Note Donotuseinterpreter, Image - 10/11/2024 [facility] [address] [place] [address] Mammography Report Signed Patient: Olivia Larios#: [id number] : 7Acct:[id number] Age/Sex: 69 / FADM Date: 10/11/24 Loc: ALFONSO Attending Dr: Renetta Arzate MD Ordering Physician: Renetta Arzateults: Date of Service: 10/11/24Follow Up: Procedure(s): XR DEXA axial skeleton Accession Number(s): [id number] cc: Renetta Arzate MD; León Ly MD EXAMINATION: DXA BONE DENSITY AXIAL HISTORY: M81.0 - Age-related osteoporosis without current pathological fracture TECHNIQUE: Find That File Dual energy absorptiometry (DEXA) of the lumbar [...] of the [employer] [place] for Metabolic Bone Disease, a World Health Organization (WHO) Collaborating Center. Electronically signed by: Alex Portillo MD 10/11/2024 09:27 AM EDT RP Dictated By: Alex Portillo MD Signed By: <Electronically signed by Alex Portillo MD in OV> 10/11/24926 DD/ 0830 TD/TT: 10/11/24 0900 Reinsurance Claim Analyst: [facility] External Provider IMG DXA PROCEDURES Final Result documented in this encounter Visit Diagnoses Not on filedocumented in this encounter Additional Health Concerns Assessment Noted Time PHQ-9 Depression Total Score: 12 025 8:53 AM EST documented as of this encounter Care Teams Circuitry Negative Inspector Relationship Specialty Start Date End Date León Ly MD [address] [place] [address] PCP - General Internal Medicine 10/02/19 documented as of this encounter
--- OUTSIDE RECORDS SUMMARY | 2025-02-20 15:35 | XMS_ITS | Clinical Summary ---
Author Organization [employer] Address [address] [facility] 7 [place] [address] Care Team Providers Care Computer Support Technician Name Role Phone León Ly MD [...] Once per day. 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 Fibromyalgia 05/10/2023 Acquired hypothyroidism [...] Encounters Date Type Department Care Team Description 02/20/2025 1:00 PM EDT Immunization [facility] [address] [place] [address] Aminata Wilson RN Encounter for immunization 02/20/2025 Travel 02/08/2025 Results Follow-Up [facility] [address] [place] [address] Gopi Molina MD CBC auto differential, Sed Rate by Modified Westergren, Urinalysis, Complete, with Reflex to Culture, Additional followed-up results: 2 02/06/2025 10:00 AM EDT Office Visit [facility] [address] [place] [address] Gopi Molina MD Interface dermatitis, lichenoid type (Primary Dx); Acquired hypothyroidism 02/06/2025 Travel 12/21/2024 9:00 AM EDT Telemedicine [facility] [address] [place] [address] León Ly MD Primary hypertension (Primary Dx); Anxiety; Interface dermatitis, lichenoid type; Mixed hyperlipidemia 12/21/2024 Travel 12/20/2024 Telephone [facility] [address] [place] [address] León Ly MD chart prep 12/13/2024 Refill [facility] [address] [place] [address] León Ly MD Acquired hypothyroidism from Last 3 Months Immunizations Immunization Administration Dates Next Due Influenza injectable quadriv alent IIV4 with preservative 03/28/2019,04/12/2017,03/08/2015 Influenza injectable quadriv alent preservative free 03/22/2023,02/12/2022,02/12/2021,2019,08/03/2018,03/03/2016 Influenza, High Dose Seasona l, Preservative Free 02/20/2025 Influenza, IIV3, injectable 03/02/2014, 1 Influenza, Split [...] Exam 10/14/2023 04/14/2023, 09/13/2012 FOBT 02/10/2024 02/09/2023 COVID-19 Vaccine ( season) 2025 05/06/2021, 10/08/2020, 09/10/2020 Alcohol/Substance Use Screening 06/21/2025 06/21/2024 SDOH Screening 06/21/2025 06/21/2024 Mammogram 09/28/2025 09/29/2023, 05/0 09/2022, 11/06/2020, Additional history exists Depression Screening 12/21/2025 12/21/2024, 12/22/19 25 Tobacco Screening 02/06/2026 02/06/2025 Colorectal Cancer Screening 02/09/2026 FIT DNA/Cologuard 02/09/2026 02/09/2023 Dental X-Ray: Full Mouth 04/15/2026 04/14/2023, 08/23 Lipid Panel 07/03/2029 07/03/2024, 11/21, 08/25/2023, Additional history exists RSV Patients and Patients Aged 60 years or older (1 - 1-dose 75+ series) 2032 Hepatitis C Screening Completed 11/17/2021 Pneumococcal Vaccine: 50+ Years Completed 04/01/2023 Influenza Vaccine Completed 02/20/2025, , 02/12/2022, Additional history exists HIB Vaccines Aged Out No longer eligi [...] Procedure Name Priority Date/Time Associated Diagnosis Comments URINALYSIS, COMPLETE, WITH REFLEX TO CULTURE Routine 02/06/2025 10:44 AM EDT Interface dermatitis, lichenoid type C-REACTIVE PROTEIN Routine 02/06/2025 10 :36 AM EDT Interface dermatitis, lichenoid type LAM SCREEN, IFA, W/REFL TITER AND PATTERN Routine 02/06/2025 10:36 AM EDT Interface dermatitis, lichenoid type SED RATE BY MODIFIED WESTERGREN Routine 02/06/2025 10:36 AM EDT Interface dermatitis, lichenoid type CBC WITH AUTO DIFFERENTIAL Routine 02/06/2025 10:36 AM EDT Interface dermatitis, lichenoid type Acquired hypothyroidism LIPID PANEL, STANDARD Routine 07/03/2024 [...] Recently Relevant to Health Maintenance Results * Urinalysis, Complete, with Reflex to Culture (02/06/2025 10:44 AM EDT) Color Urine Yellow [facility] Appearance Urine Clear [facility] PH 5.5 5.0 - 9.0 [facility] Glucose Urine UA Negative Negative mg/dL [facility] Urine Blood Negative Negative [facility] Specific [place] - Urine 1.015 1.005 - 1.025 [facility] Urine Protein Negative Neg-Trace mg/dL [facility] Urine Ketones Negative Negative mg/dL [facility] Nitrite Urine Negative Negative [facility] Leukocyte Esterase Urine Negative Negative [facility] RBC Urine 0-2 0 - 2 /HPF [facility] Urine WBC 0-5 0 - 5 /HPF [facility] Urine Squamous Epithelial Cell 0-2 0 - 2 /HPF [facility] Urine Bacteria None Seen None Seen [facility] Hyaline Casts, Urine 0-2 0 - 2 /LPF [facility] Urine 02/06/2025 10:4 4 AM EDT 02/06/2025 2:36 PM EDT Narrative [facility] - 02/06/2025 3:00 PM EDT [id number], Clean Catch us Gopi Molina MD LAB URINE ORDERABLES Final Result [facility] [address] [place] [phone] [phone] * (ABNORMAL) CBC auto differential (02/06/2025 10:36 AM EDT) White Blood Count 7.4 4.8 - 10.8 X10*3/uL [facility] Red Blood Count 4.15(L) 4.20 - 5.50 X10*6/uL [facility] Hemoglobin 12.5 12.0 - 16.0 g/dl [facility] Hematocrit 37.4 37.0 - 47.0 % [facility] Mean Corpuscular Volume 90.1 80.0 - 98.0 fL [facility] Mean Corpuscular Hemoglobin 30.1 27.0 - 33.0 pg [facility] Mean Corpuscular HGB Conc 33.4 31.0 - 35.0 g/dl [facility] Red Cell Distribution Width 14.6 11.0 - 16.0 % [facility] Platelet Count 231 160 - 400 X10*3/uL [facility] Mean Platelet Volume 10.7 9.4 - 12.3 fL [facility] Neutrophils Percent Auto 50.3 45 - 73 % [facility] Imm Gran Pct Auto 0.3 0.0 - 0.4 % [facility] Lymphocytes Percent Auto 37.8 20 - 40 % [facility] Monocytes Percent Auto 8.9 2 - 11 % [facility] Eosinophils Percent Auto 2.4 0 - 4 % [facility] Basophils Percent Auto 0.3 0 - 2 % [facility] NRBC Pct Auto 0.0 0.0 - 0.2 /100WBC [facility] Neutrophils Absolute Auto 3.7 2.0 - 8.3 x10*3/uL [facility] Imm Gran Abs Auto 0.02 0.00 - 0.03 X10*3/uL [facility] Lymphocytes Absolute Auto 2.8 1.2 - 4.9 X10*3/uL [facility] Monocytes Absolute Auto 0.7 0.1 - 1.2 X10*3/uL [facility] Eosinophils Absolute Auto 0.2 0.0 - 0.4 X10*3/uL [facility] Basophils Absolute Auto 0.0 0.0 - 0.2 X10*3/uL [facility] NRBC Abs Auto 0.000 0.0 - 0.012 X10*3/uL [facility] Blood Venous blood specimen / Unknown 02/06/2025 10:36 AM EDT 02/06/2025 2:06 PM EDT us Gopi Molina MD LAB BLOOD ORDERABLES Final Result [facility] [address] [place] [phone] * Sed Rate by Modified Quiana (02/06/2025 10:36 AM EDT) Erythrocyte Sedimentation Rate 13 0 - 20 MM/HR [facility] Comment:Patients with polycy themia and many hemoglobin abnormalitiesmay have depressed sed rates whereas patients with anemiamay have elevated sed rates. Blood Venous blood specimen / Unknown 02/06/2025 10:36 AM EDT 02/06/2025 2:06 PM EDT us Gopi Molina MD LAB BLOOD ORDERABLES Final Result Performing Organization Address City/[facility]/ZIP Co de Phone Number [facility] [address] [place] [phone] * C-reactive Protein (02/06/2025 10:36 AM EDT) Pathologist [facility] C Reactive Protein 0.24 < or = 0.50 mg/dL [facility] Blood Venous blood specimen / Unknown 02/06/2025 10:36 AM EDT 02/06/2025 2:06 PM EDT us Gopi Molina MD LAB BLOOD ORDERABLES Final Result Performing Organization Address [facility] Co de Phone Number [facility] [address] [place] [phone] * LAM Screen,IFA, with Reflex to Titer and Pattern (02/06/2025 10:36 AM EDT) Pathologist [facility] Anti Nuclear Antibody Screen NEGATIVE NEGATIVE [facility] Comment:LAM IFA is a first l ine screen for detecting thepresence of up to approximately 150 autoantibodies invarious autoimmune diseases. A negative LAM IFA resultsuggests an LAM-associated autoimmune disease is notpresent at this time, but is not definitive. If thereis high clinical suspicion for Sjogren's syndrome,testing for anti-SS-A/Ro antibody should be considered.Anti-Teagan-1 antibody should be considered for clinicallysuspected inflammatory myopathies.AC-0: NegativeInternational Consensus on LAM Patterns(https://doi.org/10.1515/zyfo-6248-1361)For additional information, please refer tohttp://education.[employer]/faq/GUX376(This link is being provided for informational/educational purposes only.)THIS TEST WAS PERFORMED AT:[facility] [place] [phone] LI MD LAM Titer [facility] L[facility] Pattern [facility] LAM TITER 2 (REF LAB) [facility] LAM Pattern 2 [facility] LAM TITER 3 [facility] LAM PATTERN 3 [facility] Blood Venous blood specimen / Unknown 02/06/2025 10:36 AM EDT 02/06/2025 2:06 PM EDT us Gopi Molina MD LAB BLOOD ORDERABLES Final Result Performing Organization Address [facility] Co de Phone Number [facility] [address] [place] [phone] * (ABNORMAL) Lipid Panel, Standard (07/03/2024 9:52 AM EST) Triglycerides 154(H) <150 mg/dL [facility] Comment:Desirable Triglyceri de: less than 150 mg/dLBorderline High Triglyceride 150-199 mg/dLHigh Triglyceride: 200-499 mg/dLVery High Triglyceride: greater than or equal to 5OO mg/dL Cholesterol 150 <200 mg/dL [facility] Comment:Desirable Cholestero l: less than 200 mg/dLBorderline High Cholesterol: 200-239 mg/dLHigh Cholesterol: greater than 239 mg/dL LDL Cholesterol Calculated 80 <100 mg/dL [facility] Comment:Desirable LDL: less than 100 mg/dLNear Optimal/Above Optimal LDL: 110- 129 mg/dLBorderline High LDL: 130-159 mg/dLHigh LDL: 160-189 mg/dLVery High LDL: greater than or equal to 190 mg/dL HDL Cholesterol 40(L) >40 mg/dL [facility] Comment:Desirable HDL: great er than 40 mg/dL Note: This HDL assay may give artificially low results in patients with liver disease. Blood Venous blood specimen / Unknown 07/03/2024 9:52 AM EST 07/03/2024 1:59 PM EST us León Krause MD LAB BLOOD ORDERABL ES Final Result Performing Organization Address City/[facility]/ZIP Co de Phone Number [facility] [address] [place] [phone] * BI Mammogram Screening Tomosynthesis Bilateral (09/29/2023 10:35 AM EDT) Anatomical Region Laterality Modality Breast Bilateral Mammography 09/29/2023 10:3 5 AM EDT Narrative 10/29/2023 8:11 AM EDT [facility] [address] [place] [address] Mammography Report Signed Patient: Erica Larios MR#: [id number] : 1955 Acct:[id number] Age/Sex: 68 / F ADM Date: 09/29/23 Loc: HO.MAMMO Attending Dr: León Krause MD Ordering Physician: León Ly MD Res ults: 1Negative Date of Service: 09/29/23 Follow Up: 1 Year From Orig inal Mammogram Procedure(s): MM tomosynthesis screening BI Accession Number(s): [id number] cc: León Ly MD EXAMINATION: MM SCREENING [...] in OV> 10/29/23 0807 DD/ 1035 TD/TT: Sweatband Drummer: Procedure Note Donotuseinterpreter, Image - 10/29/2023 [place] [facility] [address] [place] [address] Mammography Report Signed Patient: Olivia Larios#: [id number] : 7Acct:[id number] Age/Sex: 68 / FADM Date: 09/29/23 Loc: HO.MAMMO Attending Dr: León Krause MD Ordering Physician: León Ly ults: 1Negative Date of Service: 09/29/23Follow Up: 1 Year From Orig inal Mammogram Procedure(s): MM tomosynthesis screening BI Accession Number(s): [id number] cc: León Ly MD EXAMINATION: MM SCREENING [...] in OV> 10/29/23 0807 DD/ 1035 TD/TT: Sweatband Drummer: León Krause MD IM BI PROCEDURES Edited Result - Final * Cologuard?? colon cancer screening (02/09/2023 11:00 AM EDT) Cologuard Result Negative Negative 02/15/20 23 8:32 AM EDT [facility] (CLIA #:[id number]) Comment: NEGATIVE TEST RESULT. A negative Cologuard [...] (Joey Dasilva al, N Engl J Med 2014;370(14):2460-0551) The normal value (reference range) for this assay is negative. COLOGUARD RE-SCREENING RECOMMENDATION: Periodic colorectal cancer screening is an important part of preventive healthcare for asymptomatic individuals at average risk for colorectal cancer. Following a negative Cologuard result, the [place] Cancer Society and U.S. Multi-Society Task Force screening guidelines recommend a Cologuard re-screening interval of 3 years. References: [place] [employer] Guideline for Colorectal Cancer Screening: https://www.cancer.org/cancer/krovx-wjvucb-qlibfo/gqnrarbws-kfytphxec-ugttbqh/ac s-rec ommendations.html.; Jose Angel DK, Mansoor CR, Felicita MabryK, Colorectal Cancer Screening: Recommendations for Physicians and Patients from the U.S. Multi-Society Task Force on Colorectal Cancer Screening , Am J Gastroenterology 2017; 112:5204-2549. TEST DESCRIPTION: Composite algorithmic analysis of stool [...] (Joey Dasilva al, N Engl J Med 2014;370(14):3365-1070.) Cologuard may produce a false negative or false positive result (no colorectal cancer or precancerous polyp present at colonoscopy follow up). A negative Cologuard test result does not guarantee the absence of CRC or advanced adenoma (pre-cancer). The current Cologuard screening interval is every 3 years. ([place] [employer] Society and U.S. Multi-Society Task Force). Cologuard performance data in a 10,000 patient pivotal study using colonoscopy as the reference method can be accessed at the following location: www.[employer] [employer]/results. Additional description of the Cologuard test process, warnings and precautions can be found at www.[employer] English[employer]Boomratrd.com. Stool specimen (specimen) 02/09/2023 11:00 AM EDT 02/10/2023 9:36 PM EDT León Krause MD LAB MOLECULAR DIAG NOSTICS ORDERABLES Final Result [facility] (CLIA #:[id number]) [address] [address], * HEPATITIS C AB W/REFL TO HCV RNA, QN, PCR (11/17/2021 9:25 AM EDT) HEPATITIS C ANTIBODY NON-REACT ENEIDA NON-REACT ENEIDA [facility] INDEX 0.04 <1.00 [facility] Comment: HCV antibody was non-reactive. There is no laboratory evidence of HCV infection. In most cases, no further action is required. However, if recent HCV exposure is suspected, a test for HCV RNA (test code 98002) is suggested. For additional information please refer to http://education.[employer]/faq/CLW81q4 (This link is being provided for informational/ educational purposes only.) 11/17/2021 9:25 AM EDT León Krause MD HISTORICAL/NON ORD ERABLE LABS Final Result [facility]where [address] from Last 3 Months or Most Recently Relevant to Health Maintenance Insurance MEDICARE [facility] [place] [place] STAND AD[place] Care Teams Computer Support Technician Relationship Specialty Start Date End Date León Ly MD [address] [place] [phone] PCP - General Internal Medicine 10/02/19
--- OUTSIDE RECORDS SUMMARY | 2025-02-20 15:35 | XMS_ITS | Encounter Summary ---
Author Organization [employer] Address [address] [address] Care Team Providers Care Meat Smoker Name Role Phone León Ly MD Primary Care Prov ider Reason for Visit * Reason Onset Date Comments Med Refill 05/27/2023 Encounter Details Date Type Department Care Team ([facility] st Contact Info) Description 05/27/2023 Telephone [facility] [address] [place] [address] León Ly MD [address] [place] [address] Med Refill Social History Tobacco Use Types [...] 50 MG tablet To be sent to: [id number] AT [facility] Patient also stated has been taken this [...] documented as of this encounter Care Teams Meat Smoker Relationship Specialty Start Date End Date León Ly MD [address] [place] [address] PCP - General Internal Medicine 10/02/19 documented as of this encounter
--- OUTSIDE RECORDS SUMMARY | 2025-02-20 15:35 | XMS_ITS | Encounter Summary ---
Author Organization [employer] Address [address] [address] Care Team Providers Care Linker Up Name Role Phone León Ly MD Primary Care Prov ider Reason for Visit * Reason Onset Date Comments Medication Question 05/13/2023 Encounter Details Date Type Department Care Team ([facility] Contact Info) Description 05/13/2023 Telephone [facility] MEDICINE [address] [place] [address] León yL MD [address] [place] [address] Medication Question Social History Tobacco Use Types [...] documented as of this encounter Care Teams Linker Up Relationship Specialty Start Date End Date León Ly MD [address] [place] [address] PCP - General Internal Medicine 10/02/19 documented as of this encounter
--- OUTSIDE RECORDS SUMMARY | 2025-02-20 15:35 | XMS_ITS | Encounter Summary ---
Author Organization [employer] Address [address] [place] [address] Care Team Providers Care Email Campaign Manager Name Role Phone León Ly MD Primary Care Prov ider Encounter Details Date Type Department Care Team ([facility] st Contact Info) Description 02/08/2025 Results Follow-Up [facility] [address] [place], [place] [phone] Gopi Molina MD [address] [place] [address] CBC auto differential, Sed Rate by Modified Westergren, Urinalysis, Complete, with Reflex to Culture, Additional followed-up results: 2 Social History Tobacco Use Types Packs/Day Years Used Date Smoking Tobacco: Never Passive Smoke Exposure: Never Smokeless Tobacco: Never Depression Answer Date Recorded Patient Health Questionnaire-9 Score 0 12/21/2024 Patient Health Questionnaire-9 Score 0 12/21/2024 Last PHQ-9: Questionnaire Data Not on file 0 12/21/2024 Housing Stability Answer Date Recorded What is your housing situation today? I have home sing 06/21/[address] you li [...] documented as of this encounter Care Teams Email Campaign Manager Relationship Specialty Start Date End Date León Ly MD [address] [place] [phone] PCP - General Internal Medicine 10/02/19 documented as of this encounter
--- OUTSIDE RECORDS SUMMARY | 2025-02-20 15:35 | XMS_ITS | Encounter Summary ---
Author Organization [employer] Address [address] [place] [address] Care Team Providers Care Bulk Clerk Name Role Phone León Ly MD Primary Care Prov ider Reason for Visit * Reason Comments Med Refill Encounter Details Date Type Department Care Team ([facility] Contact Info) Description 03/09/2024 Refill [facility] [address] [place], [place] [phone] León Ly MD [address] [place] [address] Social History Tobacco Use Types Packs/Day Years [...] documented as of this encounter Care Teams Bulk Clerk Relationship Specialty Start Date End Date León Ly MD [address] [place] [phone] PCP - General Internal Medicine 10/02/19 documented as of this encounter
== END 2025-02-20 14:13 | disposition home or self-care (01) ==
LOC: HO.MAMMO 14:12
PROVIDERS: PCP Internal Medicine; Visit Provider Internal Medicine
DX: Z12.31 Encounter for screening mammogram for malignant neoplasm of breast (principal)
CPT/HCPCS: 77063; 77067

== ENCOUNTER → 2025-02-20 14:45 | Outpatient (BNV) | payer MEDICARE, MEDICAID, SELFPAY | PROVIDERS: PCP Internal Medicine; Visit Provider Internal Medicine | DX: Z12.31 Encounter for screening mammogram for malignant neoplasm of breast (principal) | CPT/HCPCS: 77063; 77067 ==

== ENCOUNTER 2025-02-27 07:32 | Outpatient (AMB) | payer MEDICARE, MEDICAID, SELFPAY ==
--- NOTE | 2025-02-27 07:36 | A.OFFVIS_ITS ---
Vital Signs 02/27/25 07:42 Height 5 ft 1 in Weight 157 lb 3.033 oz BMI 29.7 BP 130/78 Blood Pressure Location Lt brachial Position Sitting Pulse 55 Pulse Source Pulse Oximeter Pulse Oximetry (%) 99 Oxygen Delivery Method Room Air Intake Visit Reasons: Osteoporosis Intake Note: Patient presents for Osteoporosis follow up. Garde Manager Required: Yes Garde Manager Language: Machine Welder Services: Garde Manager Present Garde Manager Name: Rukhsana [id number] Information Interpreted: non-clinical & clinical Allergies No Known Allergies Allergy (Verified 02/27/25 07:42) Medication List - Last Reconciled 02/27/25 by Renetta Arzate MD atorvastatin 40 mg PO DAILY cholecalciferol (vitamin D3) 25 mcg PO DAILY hydrochlorothiazide 12.5 mg PO DAILY levothyroxine 125 mcg PO DAILY timolol 0.5% 1 drp ophthalmic (eye) DAILY tramadol 50 mg PO TID PRN HPI Comments Details: Patient is a 69-year-old female with hypothyroidism currently on levothyroxine, hyperlipidemia, hypertension, fibromyalgia and osteopenia who presents today for follow up Interval History: Patient last seen 09/06/24 with nj - On Tramadol 50mg tid - Complaining of right shoulder pain. - No falls or fractures since last visit - Sent to PT for right shoulder Today - On Tramadol 50mg tid - Did not go to PT, did not get a call to schedule an appointment - No falls or fractures since last visit - Still complaining of bilateral shoulder pain L>R today - Prolia restarted, last dose 10/2024 Rheumatologic History: Fibromyalgia and osteopenia Polyarticular OA Current Rheumatology Medication(s): Tramadol 50 mg t.i.d. [facility] Medical History (Updated 02/27/25 @ 07:55 by Renetta Arzate MD) Lumbar spondylosis Overweight Fibromyalgia Hypothyroidism Hyperlipidemia Osteoporosis Osteoarthritis Surgical History No history of previous surgery Family History Father Hypertension Mother No problems noted. Social History Household Members: Spouse and Children Alcohol intake: never Patient Tobacco Use Status: Former Tobacco user Review of Systems Const Details: Review of Systems Constitutional: Denies fever, chills, weight loss ENT: Denies vision changes, eye pain or eye redness, dental caries, dry mouth GI: Denies nausea, vomiting, diarrhea, abdominal pain, change in BM Pulm: Denies SOB, CSOTT, hemoptysis, wheezing Cards: Denies chest pain, palpitations Skin: Denies Raynaud's, rash, nail changes, photosensitivity, MILLER DISTILLERY: Denies headaches, weakness, paresthesias, recurrent falls MSK: as per HPI All other systems reviewed and are unremarkable except noted above Physical Exam Exam Exam: Vital signs reviewed Physical Examination CONSTITUITIONAL Patient alert and cooperative. Well appearing and in no apparent painful distress MSK Hands * Right Hand: Able to make a fist. No swelling or tenderness to palpation of the MCPs, PIPs or DIPs. TTP of the 2nd PIP * Left Hand: Able to make a fist. No swelling or tenderness to palpation of the MCPs, PIPs or DIPs. * Herbedens nodes noted bilaterally Wrists * Right Wrist: Full ROM to flexion and extension. No swelling or TTP * Left Wrist: Full ROM to flexion and extension. No swelling or TTP Elbows * Right Elbow: Full ROM. No swelling or TTP. No TTP of the medial epicondyle. No TTP of the lateral epicondyle * Left Elbow: Full ROM. No swelling or TTP. No TTP of the medial epicondyle. No TTP of the lateral epicondyle Shoulders * Right shoulder: Slightly decreased ROM. No swelling noted. No TTP of the AC joint. TTP of the subacromial bursa. No TTP of the posterior shoulder * Left shoulder: Slightly decreased ROM. No swelling noted. No TTP of the AC joint. TTP of the subacromial bursa. No TTP of the posterior shoulder Knees * Right knee: Full ROM. No swelling noted. No TTP of the knee joint line. No TTP of pes anserine bursa * Left knee: Full ROM. No swelling noted. TTP of the knee joint line. No TTP of pes anserine bursa. * Crepitations felt bilaterally Ankles * Right ankle: Good ankle dorsiflexion and plantar flexion. No swelling. No TTP of the ankle joint * Left ankle: Good ankle dorsiflexion and plantar flexion. No swelling. No TTP of the ankle joint Feet * Right foot: Negative squeeze test * Left foot: Negative squeeze test Tender points? * No tenderness to palpation of the bilateral trapezius, supraspinatus, anterior costochondral junctions, bilateral suboccipital muscle insertions SKIN No rashes Vital Signs: Last Vital Signs Pulse 55 02/27/25 07:42 BP 130/78 02/27/25 07:42 Pulse Ox 99 02/27/25 07:42 Oxygen Delivery Method Room Air 02/27/25 07:42 BMI result Body Mass Index 29.7 Results Reviewed Results Reviewed: Laboratory Tests 10/25/24 02/06/25 10:02 10:36 WBC 7.4 RBC 4.15 L Hgb 12.5 Hct 37.4 Plt Count 231 ESR 13 Sodium 141 Potassium 3.7 Chloride 110 H Carbon Dioxide 26 BUN 13 Creatinine 0.72 AST 35 H ALT 20 C-Reactive Protein 0.24 25-OH Vitamin D Total 53.2 DEXA 09/2024 FINDINGS: The bone mineral density of the lumbar spine is 1.024 with a T-score of -1.3, and a Z-score of 0.3. This is indicative of osteopenia. This represents a BMD change of -2.8% compared to the prior exam. This is statistically significant. The bone mineral density of the left total hip is 0.781 with a T-score of -1.8, and a Z-score of -0.5. This is indicative of osteopenia. This represents a BMD change of -3.6% compared to the prior exam. This is not statistically significant. The bone mineral density of the left femoral neck is 0.836 with a T-score of -1.5, and a Z-score of 0.1. This is indicative of osteopenia. This represents a BMD change of -2.3% compared to the prior exam. FRACTURE RISK: The FRAX index suggests a ten year probability of major osteoporotic fracture of 5.2%, and of hip fracture 0.6%. Assessment & Plan Assessment & Plan (1) Osteoporosis: Comment: DEXA 09/2024: AP spine -1.3, Left femur neck -1.5, Left femur total -1.8 DEXA 08/2022: AP Spine -1.1, Left femur neck -1.3, Left femur total -1.6 DEXA 08/2020: AP Spine -1.7, Left femur neck -1.5, Left femur total -1.6 Alendronate: ended in 2011. Prolia: 03/17/2019- 2022 Code(s): M81.0 - Age-related osteoporosis without current pathological fracture Category: Medical Qualifiers: Osteoporosis type: age-related Presence of current pathological fracture: without current pathological fracture Qualified Code(s): M81.0 - Age- related osteoporosis without current pathological fracture Plan: #Osteoporosis Patient is a 69-year-old female with osteoporosis here today for follow up. Prolia restarted. Slightly worsening bone density. Will continue prolia. Plan - Prolia 60mg every 6 months SC - RTC 6 months - Labs before visit: CMP, Vit D (2) Generalized osteoarthritis: Code(s): M15.9 - Polyosteoarthritis, unspecified Plan: #Polyarticular OA Patient with polyarticular OA today complaining of bilateral shoulder pain with TTP of the bilateral subacromial bursa. Offered injection but patient deferred. We will send to physical therapy Plan - PT for bilateral shoulders - Tramadol 50mg tid (3) Encounter for monitoring denosumab therapy: Code(s): Z51.81 - Encounter for therapeutic drug level monitoring; Z79.620 - intermediate teacher (current) use of immunosuppressive biologic Plan: #Long-term use of Denosumab Discussed with patient the risks and benefits of denosumab (Prolia) for the management of their osteoporosis Benefits include improved bone density, decreased fracture risk Risks include rapid bone loss if denosumab stopped, osteonecrosis of the jaw especially in patients with poor oral hygiene/diabetes/use of glucocorticoids/age greater than 65 years, atypical femoral fractures, injection site reactions. Mild increased risk of infections due to RANKL on T helper cells, increased risk of hypocalcemia especially in CKD patients Keep vitamin-D at least 35 ng/mL Advised to delay non emergent dental procedures to toward the end of the 6 month cycle and if they plan to stop denosumab would need to continue antiresorptive to maintain the effects of denosumab Plan I spent 25 minutes reviewing the record and labs, taking a history, examining the patient, discussing the treatment plan, ordering diagnostic work up and documenting in the medical record Orders: Orders Vitamin D 25-OH Total 6 Months Z79.899 - Other watermelon harvesting supervisor (current) drug therapy Comprehensive Met. Panel 6 Months Z79.899 - Other watermelon harvesting supervisor (current) drug therapy PT Evaluation and Treatment Today M75.51 - Bursitis of right shoulder, M75.52 - Bursitis of left shoulder Medications: Changed From tramadol 50 mg PO TID PRN 180 tabs 5RF pain M47.816 - Spondylosis without myelopathy or radiculopathy, lumbar region, M79.7 - Fibromyalgia To tramadol 50 mg PO TID 270 tabs 1RF pain 90 days M47.816 - Spondylosis without myelopathy or radiculopathy, lumbar region, M79.7 - Fibromyalgia Coding Level of Care Code Est Pt Level 3 (66726) Complex EM visit Add On G2211 Diagnoses Age-related osteoporosis without current pathological fracture M81.0 Osteoporosis type: age-related Presence of current pathological fracture: without current pathological fracture Generalized osteoarthritis M15.9 Encounter for monitoring denosumab therapy Z51.81; Z79.620
--- OUTSIDE RECORDS SUMMARY | 2025-02-27 07:40 | XMS_ITS | Encounter Summary ---
Author Organization [employer] Address [address] [facility] 7 [place] [address] Care Team Providers Care Surgical Scrub Tech Name Role Phone León Ly MD Primary Care Prov ider Encounter Details Date Type Department Care Team ([facility] st Contact Info) Description 05/28/2023 Orders Only [facility] CHC MED & PEDS [address] [place], [place] [phone] León Ly MD [address] [place] [address] Social History Tobacco Use Types Packs/Day Years [...] the past 12 months, has t he [employer], gas, oil or water company threatened to [...] documented as of this encounter Care Teams Surgical Scrub Tech Relationship Specialty Start Date End Date León Ly MD [address] [place] [address] PCP - General Internal Medicine 10/02/19 documented as of this encounter
--- OUTSIDE RECORDS SUMMARY | 2025-02-27 07:40 | XMS_ITS | Encounter Summary ---
Author Organization [employer] Address [address] [facility] 7 [place] [address] Care Team Providers Care Cloth Mercerizer Back Tender Name Role Phone León Ly MD Primary Care Prov ider Encounter Details Date Type Department Care Team ([facility] st Contact Info) Description 11/07/2024 Orders Only [facility] CHC MED & PEDS [address] [place], [place] [phone] Gopi Molina MD [address] [place] [address] Interface dermatitis, lichenoid type (Primary Dx) Social [...] documented as of this encounter Care Teams Cloth Mercerizer Back Tender Relationship Specialty Start Date End Date León Ly MD [address] [place] [phone] PCP - General Internal Medicine 10/02/19 documented as of this encounter
--- OUTSIDE RECORDS SUMMARY | 2025-02-27 07:40 | XMS_ITS | Encounter Summary ---
Author Organization [employer] Address [address] [address] Care Team Providers Care Return Agent Name Role Phone León Ly MD Primary Care Prov ider Reason for Visit * Reason Onset Date Comments Med Refill 05/16/2024 Encounter Details Date Type Department Care Team ([facility] st Contact Info) Description 05/16/[address] [facility] MEDICINE [address] [place] [address] León Ly MD [address] [place] [address] Med Refill Social History Tobacco Use Types [...] 11:05 AM EST Medication was sent to [facility] #[id number] on 05/15/24 #90 with 1 refill. * Telephone Encounter - Suha Harris - 05/16/2024 11:04 AM EST TC from pt requesting medication refill. Medications needing refill : levothyroxine (Synthroid, Levoxyl) 100 MCG tablet To be sent to: [facility] [employer] [facility] #[id number] documented in this encounter Plan of Treatment Not on file documented as of this encounter Visit Diagnoses Not on filedocumented in this encounter Additional Health Concerns Assessment Noted Time PHQ-9 Depression Total Score: 2 01/14/20 23 9:33 AM EDT documented as of this encounter Care Teams Return Agent Relationship Specialty Start Date End Date León Ly MD [address] [place] [phone] PCP - General Internal Medicine 10/02/19 documented as of this encounter
--- OUTSIDE RECORDS SUMMARY | 2025-02-27 07:40 | XMS_ITS | Encounter Summary ---
Author Organization [employer] Address [address] [address] Care Team Providers Care Rn Trauma Name Role Phone León Ly MD Primary Care Prov ider Reason for Visit * Reason Comments Med Refill Encounter Details Date Type Department Care Team ([facility] Contact Info) Description 09/29/2023 Refill [facility] CHC MED & PEDS [address] [place], [place] [phone] León Ly MD [address] [place] [address] Chronic pain syndrome Social History Tobacco Use [...] documented as of this encounter Care Teams Rn Trauma Relationship Specialty Start Date End Date León Ly MD [address] [place] [phone] PCP - General Internal Medicine 10/02/19 documented as of this encounter
--- OUTSIDE RECORDS SUMMARY | 2025-02-27 07:40 | XMS_ITS | Encounter Summary ---
Author Organization [employer] Address [address] [address] Care Team Providers Care Fence Erector Name Role Phone León Ly MD Primary Care Prov ider Reason for Visit * Reason Comments Med Refill Encounter Details Date Type Department Care Team ([facility] Contact Info) Description 09/07/2023 Refill [facility] CHC MED & PEDS [address] [place], [place] [phone] León Ly MD [address] [place] [address] Acquired hypothyroidism Social History Tobacco Use Types [...] documented as of this encounter Care Teams Fence Erector Relationship Specialty Start Date End Date León Ly MD [address] [place] [address] PCP - General Internal Medicine 10/02/19 documented as of this encounter
--- OUTSIDE RECORDS SUMMARY | 2025-02-27 07:41 | XMS_ITS | Encounter Summary ---
Author Organization [employer] Address [address] [place] [address] Care Team Providers Care Deckhand Tuna Boat Name Role Phone León Ly MD Primary Care Prov ider Encounter Details Date Type Department Care Team (Late st Contact Info) Description 10/30/2024 Orders Only [facility] [address] [place] [address] Provider, MD Noemi Social History Tobacco Use [...] documented as of this encounter Care Teams Deckhand Tuna Boat Relationship Specialty Start Date End Date León Ly MD [address] [place] [phone] PCP - General Internal Medicine 10/02/19 documented as of this encounter
--- OUTSIDE RECORDS SUMMARY | 2025-02-27 07:41 | XMS_ITS | Encounter Summary ---
Author Organization [employer] Address [address] [place] [address] Care Team Providers Care Plant Maintenance Mechanic Name Role Phone León Ly MD Primary Care Prov ider Encounter Details Date Type Department Care Team ([facility] st Contact Info) Description 02/08/2025 Results Follow-Up [facility] CHC MED & PEDS [address] [place], [place] [phone] Gopi Molina MD [address] [place] [address] CBC auto differential, Sed Rate by Modified [...] documented as of this encounter Care Teams Plant Maintenance Mechanic Relationship Specialty Start Date End Date León Ly MD [address] [place] [phone] PCP - General Internal Medicine 10/02/19 documented as of this encounter
--- OUTSIDE RECORDS SUMMARY | 2025-02-27 07:41 | XMS_ITS | Encounter Summary ---
Author Organization [employer] Address [address] [place] [address] Care Team Providers Care Silverware Etcher Name Role Phone León Ly MD Primary Care Prov ider Encounter Details Date Type Department Care Team (Late st Contact Info) Description 09/18/2024 Orders Only [facility] MEDICINE [address] [place] [address] León Ly MD [address] [place] [address] Social History Tobacco Use Types Packs/Day Years [...] AM EDT Narrative 10/11/2024 9:30 AM EDT [facility]'s [address] [place] [address] Mammography Report Signed Patient: Erica Larios MR#: [id number] : 1955 Acct:[id number] Age/Sex: 69 / F ADM Date: 10/11/24 Loc: MAMMO Attending Dr: Renetta Arzate MD Ordering Physician: Renetta Arzate MD Results: Date of Service: 10/11/24 Follow Up: Procedure(s): XR DEXA axial skeleton Accession Number(s): [id number] cc: Renetta Arzate MD; León Ly MD EXAMINATION: DXA BONE DENSITY AXIAL HISTORY: M81.0 - Age-related osteoporosis without current pathological fracture TECHNIQUE: [employer]public Dual energy absorptiometry (DEXA) of the lumbar [...] is a trademark of the [employer]'s [place] for Metabolic Bone Disease, a World Health Organization (WHO) Collaborating Center. Electronically signed by: Alex Portillo MD 10/11/2024 09:27 AM EDT Dictated By: Alex Portillo MD Signed By: <Electronically signed by Alex Portillo MD in OV> 10/11/24926 DD/ 08 TD/TT: 10/11/24 09 Marketing Program Coordinator: Procedure Note Donotuseinterpreter, Image - 10/11/2024 [facility] [address] [place] [address] Mammography Report Signed Patient: Olivia Larios#: [id number] : 7Acct:[id number] Age/Sex: 69 / FADM Date: 10/11/24 Loc: ALFONSO Attending Dr: Renetta Arzate MD Ordering Physician: Renetta Arzateults: Date of Service: 10/11/24Follow Up: Procedure(s): XR DEXA axial skeleton Accession Number(s): [id number] cc: Renetta Arzate MD; León Ly MD EXAMINATION: DXA BONE DENSITY AXIAL HISTORY: M81.0 - Age-related osteoporosis without current pathological fracture TECHNIQUE: Hyperpublic Dual energy absorptiometry (DEXA) of the lumbar [...] is a trademark of the [employer] [place] for Metabolic Bone Disease, a World Health Organization (WHO) Collaborating Center. Electronically signed by: Alex Portillo MD 10/11/2024 09:27 AM EDT RP Dictated By: Alex Portillo MD Signed By: <Electronically signed by Alex Portillo MD in OV> 10/11/24926 DD/ 0830 TD/TT: 10/11/24 0900 Marketing Program Coordinator: [facility] External Provider IMG DXA PROCEDURES Final Result documented in this encounter Visit Diagnoses Not on filedocumented in this encounter Additional Health Concerns Assessment Noted Time PHQ-9 Depression Total Score: 12 025 8:53 AM EST documented as of this encounter Care Teams Silverware Etcher Relationship Specialty Start Date End Date León Ly MD [address] [place] [phone] PCP - General Internal Medicine 10/02/19 documented as of this encounter
--- OUTSIDE RECORDS SUMMARY | 2025-02-27 07:41 | XMS_ITS | Clinical Summary ---
Author Organization [employer] Address 75 [facility] 7 [place] [address] Care Team Providers Care Second Time Worker Name Role Phone León Ly MD Primary [...] Will continue tramadol as prescribed by her systems programmer analyst for chronic pain Fibromyalgia 05/10/2023 Acquired hypothyroidism [...] Plan (02/12/2023 1:43 PM EDT): Pending PT, rodolfosebastián on 2 weeks, will follow after completing [...] Team Description 02/20/2025 1:00 PM EDT Immunization [facility] [address] [place] [phone] Aminata Wilson RN Encounter for immunization 02/20/2025 Orders Only [facility] [address] [place] [address] León Ly MD 02/20/2025 Travel 02/08/2025 Results Follow-Up [facility] [address] [place] [address] Gopi Molina MD CBC auto differential, Sed Rate by Modified Westergren, Urinalysis, Complete, with Reflex to Culture, Additional followed-up results: 2 02/06/2025 10:00 AM EDT Office Visit [facility] [address] [place] [address] Gopi Molina MD Interface dermatitis, lichenoid type (Primary Dx); Acquired hypothyroidism 02/06/2025 Travel 12/21/2024 9:00 AM EDT Telemedicine [facility] [address] [place] [address] León Ly MD Primary hypertension (Primary Dx); Anxiety; Interface dermatitis, lichenoid type; Mixed hyperlipidemia 12/21/2024 Travel 12/20/2024 Telephone [facility] [address] [place] [address] León Ly MD chart prep 12/13/2024 Refill [facility] MED & PEDS [address] [place] [address] León Ly MD Acquired hypothyroidism from Last [...] Screening 06/21/2025 06/21/2024 SDOH Screening 06/21/2025 06/21/2024 Depression Screening 12/21/2025 12/21/2024, 12/22/19 Tobacco Screening 02/06/2026 02/06/2025 Colorectal Cancer Screening 02/09/2026 FIT DNA/Cologuard 02/09/2026 02/09/2023 Dental X-Ray: Full Mouth 04/15/2026 04/14/2023, 08/23 Mammogram 02/20/2027 02/20/2025, 050 12/2023, 09/25/2022, Additional history exists Lipid Panel 07/03/2029 07/03/2024, 11/21, 08/25/2023, Additional [...] Procedure Name Priority Date/Time Associated Diagnosis Comments BI MAMMOGRAM SCREENING TOMOSYNTHESIS BILATERAL Routine 02/20/2025 2:30 PM EDT URINALYSIS, COMPLETE, WITH REFLEX TO CULTURE Routine [...] Routine 07/03/2024 9:52 AM EST Primary hypertension PANORAMIC RADIOGRAPHIC IMAGE Routine 04/14/2023 10:00 AM [...] Recently Relevant to Health Maintenance Results * BI Mammogram Screening Tomosynthesis Bilateral (02/20/2025 2:30 PM EDT) Anatomical Region Laterality Modality Breast Bilateral Mammography 02/20/2025 2:30 PM EDT Narrative 02/23/2025 5:14 PM EDT [facility] [address] [place] [address] Dr. [place], [place] [address] Mammography Report Signed Patient: Erica Larios MR#: [id number] : 1955 Acct:[id number] Age/Sex: 69 / F ADM Date: 02/20/25 Loc: HO.MAMMO Attending Dr: León Krause MD Ordering Physician: León Ly MD Res ults: 1Negative Date of Service: 02/20/25 Follow Up: 1 Year From Orig ina Mammogram Procedure(s): MM tomosynthesis screening BI Accession Number(s): [id number] cc: León Ly MD Reason For Exam: SCREENING EXAMINATION: MM SCREENING DIGITAL BREAST TOMOSYNTHESIS, BILATERAL CLINICAL INFORMATION: Screening. Asymptomatic. COMPARISON: Mammography: Comparison is made with available priors TECHNIQUE: Digital breast mammography with tomosynthesis is performed in both the craniocaudal and mediolateral oblique views along with computer-aided detection (CAD). FINDINGS: The breasts are almost entirely fatty. There are no significant masses, abnormal calcifications, or other abnormalities. MM/MM tomosynthesis screening BI IMPRESSION: No mammographic evidence of malignancy. ASSESSMENT: BI-RADS Category 1: Negative RECOMMENDATION: Routine annual mammography screening. 1 year F/U This examination should not preclude the clinical evaluation of a suspicious palpable abnormality. This patient's information was entered into a reminder system with a target due date for their next mammogram. Electronically signed by: Madelyn Zelaya DO 02/23/2025 05:11 PM EDT Dictated By: Madelyn Zelaya DO Signed By: <Electronically signed by Madelyn Zelaya DO in OV> 02/23/25 1711 DD/ 1430 TD/TT: 02/20/25 1430 Inclusion Specialist: Procedure Note Donotuseinterpreter, Image - 02/23/2025 [facility] [address] [place], [place] [address] Mammography Report Signed Patient: Oliiva Larios#: [id number] : 7Acct:[id number] Age/Sex: 69 / FADM Date: 02/20/25 Loc: MAMMO Attending Dr: León Krause MD Ordering Physician: León Ly ults: 1Negative Date of Service: 02/20/25Follow Up: 1 Year From Orig inal Mammogram Procedure(s): MM tomosynthesis screening BI Accession Number(s): [id number] cc: León Ly MD Reason For Exam: SCREENING EXAMINATION: MM SCREENING DIGITAL BREAST TOMOSYNTHESIS, BILATERAL CLINICAL INFORMATION: Screening. Asymptomatic. COMPARISON: Mammography: Comparison is made with available priors TECHNIQUE: Digital breast mammography with tomosynthesis is performed in both the craniocaudal and mediolateral oblique views along with computer-aided detection (CAD). FINDINGS: The breasts are almost entirely fatty. There are no significant masses, abnormal calcifications, or other abnormalities. MM/MM tomosynthesis screening BI IMPRESSION: No mammographic evidence of malignancy. ASSESSMENT: BI-RADS Category 1: Negative RECOMMENDATION: Routine annual mammography screening. 1 year F/U This examination should not preclude the clinical evaluation of a suspicious palpable abnormality. This patient's information was entered into a reminder system with a target due date for their next mammogram. Electronically signed by: Madelyn Zelaya DO 02/23/2025 05:11 PM EDT RP Dictated By: Madelyn Zelaya DO Signed By: <Electronically signed by Madelyn Zelaya DO in OV> 02/23/25 1711 DD/ 1430 TD/TT: 02/20/25 1430 Inclusion Specialist: us León Krause MD IMG BI PROCEDURES Final Result * Urinalysis, Complete, with Reflex to Culture (02/06/2025 10:44 AM EDT) Color Urine Yellow [facility] Appearance Urine Clear [facility] PH 5.5 5.0 - 9.0 [facility] Glucose Urine UA Negative Negative mg/dL [facility] Urine Blood Negative Negative [facility] Specific [place] - Urine 1.015 1.005 - 1.025 [facility] Urine Protein Negative Neg-Trace mg/dL [facility] Urine Ketones Negative Negative mg/dL [facility] Nitrite Urine Negative Negative [facility] Leukocyte Esterase Urine Negative Negative [facility] RBC Urine 0-2 0 - 2 /HPF [facility] Urine WBC 0-5 0 - 5 /HPF [facility] Urine Squamous Epithelial Cell 0-2 0 - 2 /HPF [facility] Urine Bacteria None Seen None Seen [facility] Hyaline Casts, Urine 0-2 0 - 2 /LPF [facility] Urine 02/06/2025 10:4 4 AM EDT 02/06/2025 2:36 PM EDT Narrative [facility] - 02/06/2025 3:00 PM EDT [id number], Clean Catch us Gopi Molina MD LAB URINE ORDERABLES Final Result [facility] [address] [place] [phone] * (ABNORMAL) CBC auto differential (02/06/2025 10:36 AM EDT) White Blood Count 7.4 4.8 - 10.8 X10*3/uL [facility] Red Blood Count 4.15(L) 4.20 - 5.50 X10*6/uL [facility] Hemoglobin 12.5 12.0 - 16.0 g/dl [facility] Hematocrit 37.4 37.0 - 47.0 % [facility] Mean Corpuscular Volume 90.1 80.0 - 98.0 fL [facility] Mean Corpuscular Hemoglobin 30.1 27.0 - 33.0 pg [facility] Mean Corpuscular HGB Conc 33.4 31.0 - 35.0 g/dl [facility] Red Cell Distribution Width 14.6 11.0 - 16.0 % [facility] Platelet Count 231 160 - 400 X10*3/uL [facility] Mean Platelet Volume 10.7 9.4 - 12.3 fL [facility] Neutrophils Percent Auto 50.3 45 - 73 % [facility] Imm Gran Pct Auto 0.3 0.0 - 0.4 % [facility] Lymphocytes Percent Auto 37.8 20 - 40 % [facility] Monocytes Percent Auto 8.9 2 - 11 % [facility] Eosinophils Percent Auto 2.4 0 - 4 % [facility] Basophils Percent Auto 0.3 0 - 2 % [facility] NRBC Pct Auto 0.0 0.0 - 0.2 /100WBC [facility] Neutrophils Absolute Auto 3.7 2.0 - 8.3 x10*3/uL [facility] Imm Gran Abs Auto 0.02 0.00 - 0.03 X10*3/uL [facility] Lymphocytes Absolute Auto 2.8 1.2 - 4.9 X10*3/uL [facility] Monocytes Absolute Auto 0.7 0.1 - 1.2 X10*3/uL [facility] Eosinophils Absolute Auto 0.2 0.0 - 0.4 X10*3/uL [facility] Basophils Absolute Auto 0.0 0.0 - 0.2 X10*3/uL [facility] NRBC Abs Auto 0.000 0.0 - 0.012 X10*3/uL [facility] Blood Venous blood specimen / Unknown 02/06/2025 10:36 AM EDT 02/06/2025 2:06 PM EDT Gopi Molina MD LAB BLOOD ORDERABLES Final Result [facility] [address] [place] [phone] [phone] * Sed Rate by Modified Quiana (02/06/2025 10:36 AM EDT) Erythrocyte Sedimentation Rate 13 0 - 20 MM/HR [facility] Comment:Patients with polycy themia and many hemoglobin abnormalitiesmay have depressed sed rates whereas patients with anemiamay have elevated sed rates. Blood Venous blood specimen / Unknown 02/06/2025 10:36 AM EDT 02/06/2025 2:06 PM EDT Gopi Molina MD LAB BLOOD ORDERABLES Final Result Performing Organization Address City/[facility] Co de Phone Number [facility] [address] [place] [phone] [phone] * C-reactive Protein (02/06/2025 10:36 AM EDT) Pathologist [facility] C Reactive Protein 0.24 < or = 0.50 mg/dL [facility] Blood Venous blood specimen / Unknown 02/06/2025 10:36 AM EDT 02/06/2025 2:06 PM EDT Gopi Molina MD LAB BLOOD ORDERABLES Final Result Performing Organization Address [facility] de Phone Number [facility] [address] [place] [phone] * LAM Screen,IFA, with Reflex to Titer and Pattern (02/06/2025 10:36 AM EDT) Pathologist [facility] Anti Nuclear Antibody Screen NEGATIVE NEGATIVE [facility] Comment:LAM IFA is a first [...] clinicallysuspected inflammatory myopathies.AC-0: NegativeInternational Consensus on LAM Patterns(https://doi.org/10.1515/ewhp-9077-2154)For additional information, please refer tohttp://education.gestigon/faq/APR984(This link is being provided for informational/educational purposes only.)THIS TEST WAS PERFORMED AT:[employer] [place] [phone] LI MD LAM Titer TNP [facility] LAM Pattern TNP [facility] LAM TITER 2 (REF LAB) TNP [facility] LAM Pattern 2 TNP [facility] LAM TITER 3 TNP [facility] PATTERN 3 [facility] Blood Venous blood specimen / Unknown 02/06/2025 10:36 AM EDT 02/06/2025 2:06 PM EDT us Gopi Molina MD LAB BLOOD ORDERABLES Final Result [facility] [address] [place] [phone] * (ABNORMAL) Lipid Panel, Standard (07/03/2024 9:52 AM EST) Triglycerides 154(H) <150 mg/dL [facility] Comment:Desirable Triglyceri de: less than 150 mg/dLBorderline High Triglyceride 150-199 mg/dLHigh Triglyceride: 200-499 mg/dLVery High Triglyceride: greater than or equal to 5OO mg/dL Cholesterol 150 <200 mg/dL [facility] Comment:Desirable Cholestero l: less than 200 mg/dLBorderline High Cholesterol: 200-239 mg/dLHigh Cholesterol: greater than 239 mg/dL LDL Cholesterol Calculated 80 <100 mg/dL [facility] Comment:Desirable LDL: less than 100 mg/dLNear Optimal/Above Optimal LDL: 110- 129 mg/dLBorderline High LDL: 130-159 mg/dLHigh LDL: 160-189 mg/dLVery High LDL: greater than or equal to 190 mg/dL HDL Cholesterol 40(L) >40 mg/dL [facility] Comment:Desirable HDL: great er than 40 mg/dL Note: This HDL assay may give artificially low results in patients with liver disease. Blood Venous blood specimen / Unknown 07/03/2024 9:52 AM EST 07/03/2024 1:59 PM EST us León Krause MD LAB BLOOD ORDERABL ES Final Result [facility] [address] [place] [address] [phone] * Cologuard?? colon cancer screening (02/09/2023 11:00 AM EDT) Cologuard Result Negative Negative 02/15/20 8:32 AM EDT [facility] (CLIA #:[id number]) Comment: NEGATIVE TEST RESULT. A negative Cologuard [...] Bedolla et al, N Engl J Med 2014;370(14):9770-7882) The normal value (reference range) for this assay is negative. COLOGUARD RE-SCREENING RECOMMENDATION: Periodic colorectal cancer screening is an important part of preventive healthcare for asymptomatic individuals at average risk for colorectal cancer. Following a negative Cologuard result, the [place] Cancer Society and U.S. Multi-Society Task Force screening guidelines recommend a Cologuard re-screening interval of 3 years. References: [place] [employer] Guideline for Colorectal Cancer Screening: https://www.cancer.org/cancer/hkhiy-zizgug-rmgczp/efxfyezua-fdhvhumkc-npkpvox/ac s-rec ommendations.html.; Jose Angel DK, Mansoor CR, Felicita MabryK, Colorectal Cancer Screening: Recommendations for Physicians and Patients from the U.S. Multi-Society Task Force on Colorectal Cancer Screening , Am J Gastroenterology 2017; 112:4692-0579. TEST DESCRIPTION: Composite algorithmic analysis of stool [...] Bedolla et al, N Engl J Med 2014;370(14):0211-2587.) Cologuard may produce a false negative or false positive result (no colorectal cancer or precancerous polyp present at colonoscopy follow up). A negative Cologuard test result does not guarantee the absence of CRC or advanced adenoma (pre-cancer). The current Cologuard screening interval is every 3 years. ([place] Cancer Society and U.S. Multi-Society Task Force). Cologuard performance data in a 10,000 patient pivotal study using colonoscopy as the reference method can be accessed at the following location: www.[employer]/results. Additional description of the Cologuard test process, warnings and precautions can be found at www.[employer].com. Stool specimen (specimen) 02/09/2023 11:00 AM EDT 02/10/2023 9:36 PM EDT León Krause MD LAB MOLECULAR DIAG NOSTICS ORDERABLES Final Result [facility] (CLIA #:[id number]) [place] [address], * HEPATITIS C AB W/REFL TO HCV RNA, QN, PCR (11/17/2021 9:25 AM EDT) HEPATITIS C ANTIBODY NON-REACT ENEIDA NON-REACT ENEIDA [facility] INDEX 0.04 <1.00 [facility] Comment: HCV antibody was non-reactive. There is no laboratory evidence of HCV infection. In most cases, no further action is required. However, if recent HCV exposure is suspected, a test for HCV RNA (test code 40826) is suggested. For additional information please refer to http://education.Pzoom/faq/INB34s8 (This link is being provided for informational/ educational purposes only.) 11/17/2021 9:25 AM EDT us León Krause MD HISTORICAL/NON ORD ERABLE LABS Final Result [facility] [address] from Last 3 Months or Most Recently Relevant to Health Maintenance Insurance MEDICARE [facility] MEDICA[facility] STAND ADULT Care Teams Second Time Worker Relationship Specialty Start Date End Date León Ly MD [address] [place] [phone] PCP - General Internal Medicine 10/02/19
--- OUTSIDE RECORDS SUMMARY | 2025-02-27 07:41 | XMS_ITS | Encounter Summary ---
Author Organization [employer] Address 75 [facility] [address] [place] [address] Care Team Providers Care Solution Strategist Name Role Phone León Ly MD Primary Care Prov ider Encounter Details Date Type Department Care Team ([facility] st Contact Info) Description 02/20/2025 Orders Only [facility] MED & PEDS [address] [place], [place] [phone] León Ly MD [address] [place] [address] Social History Tobacco Use Types Packs/Day Years [...] TOMOSYNTHESIS BILATERAL Routine 02/20/2025 2:30 PM EDT documented in this encounter Results * BI Mammogram Screening Tomosynthesis Bilateral (02/20/2025 2:30 PM EDT) Anatomical Region Laterality Modality Breast Bilateral Mammography 02/20/2025 2:30 PM EDT Narrative 02/23/2025 5:14 PM EDT [facility] [address] [place], [place] [address] Mammography Report Signed Patient: Erica Larios MR#: [id number] : 1955 Acct:[id number] Age/Sex: 69 / F ADM Date: 02/20/25 Loc: HO.MAMMO Attending Dr: León Krause MD Ordering Physician: León Ly MD Res ults: 1Negative Date of Service: 02/20/25 Follow Up: 1 Year From Orig inal Mammogram Procedure(s): MM tomosynthesis screening BI Accession Number(s): [id number] cc: León Ly MD Reason For Exam: [...] 02/23/25 1711 DD/ 1430 TD/TT: 02/20/25 1430 Media Strategist: Procedure Note Donotuseinterpreter, Image - 02/23/2025 [facility] [address] [place] [address] Mammography Report Signed Patient: Olivia Larios#: [id number] : 7Acct:[id number] Age/Sex: 69 / FADM Date: 02/20/25 Loc: SAEO Attending Dr: León Krause MD Ordering Physician: León Ly ults: 1Negative Date of Service: 02/20/25Follow Up: 1 Year From Orig ina Mammogram Procedure(s): MM tomosynthesis screening BI Accession Number(s): [id number] cc: León Ly MD Reason For Exam: [...] 02/23/25 1711 DD/ 1430 TD/TT: 02/20/25 1430 Media Strategist: León Krause MD IMG BI PROCEDURES Final Result documented in this encounter Visit Diagnoses Not on filedocumented in this encounter Additional Health Concerns Assessment Noted Time PHQ-9 Depression Total Score: 0 12/22/19 25 9:06 AM EDT documented as of this encounter Care Teams Solution Strategist Relationship Specialty Start Date End Date León Ly MD [address] [place] [phone] PCP - General Internal Medicine 10/02/19 documented as of this encounter
--- OUTSIDE RECORDS SUMMARY | 2025-02-27 07:41 | XMS_ITS | Encounter Summary ---
Author Organization [employer] Address [address] [address] Care Team Providers Care Insurance Counsel Name Role Phone León Ly MD Primary Care Prov ider Reason for Visit * Reason Onset Date Comments Med Refill 05/27/2023 Encounter Details Date Type Department Care Team ([facility] st Contact Info) Description 05/27/2023 Telephone [facility] [address] [place] [address] eLón Ly MD [address] [place] [address] Med Refill Social History Tobacco Use Types [...] 50 MG tablet To be sent to: [id number] AT [facility] Patient also stated has been taken [...] documented as of this encounter Care Teams Insurance Counsel Relationship Specialty Start Date End Date León Ly MD [address] [place] [address] PCP - General Internal Medicine 10/02/19 documented as of this encounter
--- OUTSIDE RECORDS SUMMARY | 2025-02-27 07:41 | XMS_ITS | Encounter Summary ---
Author Organization [employer] Address [address] [address] Care Team Providers Care Vba Developer Name Role Phone León Ly MD Primary Care Prov ider Reason for Visit * Reason Onset Date Comments Med Refill 02/17/2024 Encounter Details Date Type Department Care Team ([facility] st Contact Info) Description 02/17/2024 Telephone [facility] [address] [place] [address] León Ly MD [address] [place] [address] Med Refill Social History Tobacco Use Types [...] 50 MG tablet To be sent to: [id number] [place], [place] - [address] [place] [address] RD AT [facility] documented in this encounter Plan of Treatment Not on file documented as of this encounter Visit Diagnoses Not on filedocumented in this encounter Additional Health Concerns Assessment Noted Time PHQ-9 Depression Total Score: 2 01/14/20 23 9:33 AM EDT documented as of this encounter Care Teams Vba Developer Relationship Specialty Start Date End Date León Ly MD [address] [place] [phone] PCP - General Internal Medicine 10/02/19 documented as of this encounter
--- OUTSIDE RECORDS SUMMARY | 2025-02-27 07:41 | XMS_ITS | Encounter Summary ---
Author Organization [employer] Address [address] [address] Care Team Providers Care Trailer Park Manager Name Role Phone León Ly MD Primary Care Prov ider Reason for Visit * Reason Onset Date Comments Med Refill 04/18/2024 Encounter Details Date Type Department Care Team ([facility] st Contact Info) Description 04/18/[address] [facility] MED[facility] [address] [place] [address] León Ly MD [address] [place] [address] Med Refill Social History Tobacco Use Types [...] 50 MG tablet To be sent to: [id number] - [place], [place] - [address] [place] [address] RD AT [facility] documented in this encounter Plan of Treatment Not on file documented as of this encounter Visit Diagnoses Not on filedocumented in this encounter Additional Health Concerns Assessment Noted Time PHQ-9 Depression Total Score: 2 01/14/20 23 9:33 AM EDT documented as of this encounter Care Teams Trailer Park Manager Relationship Specialty Start Date End Date León Ly MD [address] [place] [phone] PCP - General Internal Medicine 10/02/19 documented as of this encounter
--- OUTSIDE RECORDS SUMMARY | 2025-02-27 07:41 | XMS_ITS | Encounter Summary ---
Author Organization [employer] Address [address] [address] Care Team Providers Care Cork Pressing Machine Operator Name Role Phone León Ly MD Primary Care Prov ider Reason for Visit * Reason Comments Med Refill Encounter Details Date Type Department Care Team ([facility] Contact Info) Description 03/09/2024 Refill [facility] CHC MED & PEDS [address] [place], [place] [phone] León Ly MD [address] [place] [address] Social History Tobacco Use Types Packs/Day Years [...] documented as of this encounter Care Teams Cork Pressing Machine Operator Relationship Specialty Start Date End Date León Ly MD [address] [place] [phone] PCP - General Internal Medicine 10/02/19 documented as of this encounter
--- OUTSIDE RECORDS SUMMARY | 2025-02-27 07:41 | XMS_ITS | Encounter Summary ---
Author Organization [employer] Address [address] [place] [address] Care Team Providers Care Bi Application Developer Name Role Phone León Ly MD Primary Care Prov ider Reason for Visit * Reason Comments Med Refill Encounter Details Date Type Department Care Team ([facility] st Contact Info) Description 07/20/2022 Refill C [facility] MED [facility] PEDS [address] [place] [address] León Ly MD [address] [place] [address] Social History Tobacco Use Types Packs/Day Years [...] on filedocumented in this encounter Care Teams Bi Application Developer Relationship Specialty Start Date End Date León Ly MD [address] [place] [address] PCP - General Internal Medicine 10/02/19 documented as of this encounter
--- OUTSIDE RECORDS SUMMARY | 2025-02-27 07:41 | XMS_ITS | Encounter Summary ---
Author Organization [facility] Address [address] [address] Care Team Providers Care Application Systems Architect Name Role Phone León Ly MD Primary Care Prov ider Reason for Visit * Reason Onset Date Comments Medication Question 05/13/2023 Encounter Details Date Type Department Care Team ([facility] [place] Contact Info) Description 05/13/2023 Telephone [facility] MEDICINE [address] [place] [address] León Ly MD [address] [place] [address] Medication Question Social History Tobacco Use Types [...] documented as of this encounter Care Teams Application Systems Architect Relationship Specialty Start Date End Date León Ly MD [address] [place] [address] PCP - General Internal Medicine 10/02/19 documented as of this encounter
--- OUTSIDE RECORDS SUMMARY | 2025-02-27 07:41 | XMS_ITS | Encounter Summary ---
Author Organization [facility] Address [address] [place] [id number] Care Team Providers Care Scientific Manager Name Role Phone León Ly MD Primary Care Prov ider Reason for Visit * Reason Comments Med Refill Encounter Details Date Type Department Care Team ([facility] st Contact Info) Description 01/17/2023 Refill [facility] MED & PEDS [address] [place] [address] Gopi Molina MD [address] [place] [address] Chronic pain of left knee Social History [...] documented as of this encounter Care Teams Scientific Manager Relationship Specialty Start Date End Date León Ly MD [address] [place] [id number] PCP - General Internal Medicine 10/02/19 documented as of this encounter
--- OUTSIDE RECORDS SUMMARY | 2025-02-27 07:41 | XMS_ITS | Encounter Summary ---
Author Organization [facility] [employer] Address [address] [address] Care Team Providers Care Cargo Operations Agent Name Role Phone León Ly MD Primary Care Prov ider Reason for Visit * Reason Comments Med Refill Encounter Details Date Type Department Care Team ([facility] Contact Info) Description 12/04/2023 Refill [facility] CH[facility] MED & PEDS [address] [place], [place] [phone] León Ly MD [address] [place] [address] Fibromyalgia Social History Tobacco Use Types Packs/Day [...] documented as of this encounter Care Teams Cargo Operations Agent Relationship Specialty Start Date End Date León Ly MD [address] [place] [id number] PCP - General Internal Medicine 10/02/19 documented as of this encounter
[2025-02-27 07:42] VITALS: BP 130/78; PULSE 55; O2SAT 99; BMI 29.7
== END 2025-02-27 08:06 | disposition home or self-care (01) ==
LOC: HO.RHES 07:33
PROVIDERS: PCP Internal Medicine; Visit Provider Student in an Organized Health Care Education/Training Program
DX: M81.0 Age-related osteoporosis without current pathological fracture (principal); M15.9 Polyosteoarthritis, unspecified; Z51.81 Encounter for therapeutic drug level monitoring; Z79.620 Long term (current) use of immunosuppressive biologic
CPT/HCPCS: 99213; G2211

== ENCOUNTER → 2025-02-27 07:32 | Outpatient (BNVA) | payer MEDICARE, MEDICAID, SELFPAY | PROVIDERS: PCP Internal Medicine; Visit Provider Student in an Organized Health Care Education/Training Program | DX: M81.0 Age-related osteoporosis without current pathological fracture (principal); M15.9 Polyosteoarthritis, unspecified; Z51.81 Encounter for therapeutic drug level monitoring; Z79.620 Long term (current) use of immunosuppressive biologic | CPT/HCPCS: 99212 ==

== ENCOUNTER 2025-05-01 12:04 | Outpatient (REF) | payer MEDICARE, MEDICAID, SELFPAY ==
[2025-05-01 15:02] LABS: Alanine Aminotransferase 33 U/L (0-31); Albumin Level 4.2 g/dL (3.5-5.0); Alkaline Phosphatase 89 U/L (39-117); Anion Gap 8 (12-20); Aspartate Amino Transferase 32 U/L (5-31); Blood Urea Nitrogen 17 mg/dL (9-16); Calcium 9.6 mg/dL (8.4-10.2); Carbon Dioxide 30 mmol/L (22-29); Chloride 108 mmol/L (96-108); Estimated Glomerular Filt Rate > 60; Potassium 3.8 mmol/L (3.3-5.1); Sodium 142 mmol/L (135-145); Total Protein 6.8 g/dL (6.5-8.0)
== END 2025-05-01 12:05 | disposition home or self-care (01) ==
LOC: HO.CHCLDS 12:04
PROVIDERS: Visit Provider Student in an Organized Health Care Education/Training Program
DX: M81.0 Age-related osteoporosis without current pathological fracture (principal)
CPT/HCPCS: 36415; 80053; 82306

== ENCOUNTER 2025-05-03 09:55 | Outpatient (AMB) | payer MEDICARE, MEDICAID, SELFPAY ==
--- NOTE | 2025-05-03 11:23 | AM.OFFVISNUR ---
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 The patient has not had any recent fever or illness. The injection site to be used is without erythema, edema, and is clean, dry and intact The patient tolerated the procedure well. We discussed follow-up precautions including but not limited to injection site soreness, redness, itching or swelling. The patient can call the office for consideration of treatment recommendations e.g., medication to reduce pain (e.g., Tylenol) or itching (e.g., Benadryl) if needed. Skin and mucosal symptoms such as generalized hives, itching, or flushing; swelling of lips, face, throat, or eyes. Respiratory symptoms such as nasal congestion, change in voice, sensation of throat closing, stridor, shortness of breath, wheeze, or cough. Gastrointestinal symptoms such as nausea, vomiting, diarrhea, cramping abdominal pain. Cardiovascular symptoms such as collapse, dizziness, tachycardia, hypotension are considered medical emergencies and the patient verbalizes that urgent medical attention (call 911) should be sought. The patient was observed for an injection site reaction. No injection site reactions noted. The patient was discharged from the practice. Assessment & Plan Assessment & Plan Orders: Orders Comprehensive Met. Panel 05/01/25 M81.0 - Age-related osteoporosis without current pathological fracture Vitamin D 25-OH Total 05/01/25 M81.0 - Age-related osteoporosis without current pathological fracture [facility] Denosumab Injection Practice Supplied Today M81.0 - Age-related osteoporosis without current pathological fracture Coding
== END 2025-05-03 10:22 | disposition home or self-care (01) ==
LOC: HO.RHES 09:55
PROVIDERS: PCP Internal Medicine; Visit Provider Student in an Organized Health Care Education/Training Program
DX: M81.0 Age-related osteoporosis without current pathological fracture (principal)

== ENCOUNTER → 2025-05-03 09:55 | Outpatient (BNVA) | payer MEDICARE, MEDICAID, SELFPAY | PROVIDERS: PCP Internal Medicine; Visit Provider Student in an Organized Health Care Education/Training Program | DX: M81.0 Age-related osteoporosis without current pathological fracture (principal); Z79.899 Other long term (current) drug therapy | CPT/HCPCS: 96372; J0897 ==